=== PATIENT | female | born 1955 | race Caucasian/White ===

== ENCOUNTER → 2023-06-10 09:29 | Outpatient (BNVA) | payer OTHER, SELFPAY | PROVIDERS: PCP Internal Medicine Cardiovascular Disease; Visit Provider Physician Assistant Surgical ==

== ENCOUNTER → 2023-06-12 09:53 | Outpatient (BNVA) | payer OTHER, SELFPAY | PROVIDERS: PCP Internal Medicine Cardiovascular Disease; Visit Provider Physician Assistant ==

== ENCOUNTER 2023-07-10 13:48 | Outpatient (AMB) | payer OTHER, SELFPAY ==
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
[2023-07-10 14:20] VITALS: BP 143/94; PULSE 85; TEMP 36.4; O2SAT 100; BMI 49.7
== END 2023-07-10 15:09 | disposition home or self-care (01) ==
PROVIDERS: PCP Internal Medicine Cardiovascular Disease; Visit Provider Physician Assistant
DX: E66.01 Morbid (severe) obesity due to excess calories (principal); Z68.42 Body mass index [BMI] 45.0-49.9, adult; Z98.84 Bariatric surgery status; G47.30 Sleep apnea, unspecified
CPT/HCPCS: 99205

== ENCOUNTER → 2023-07-10 13:48 | Outpatient (BNVA) | payer OTHER, SELFPAY | PROVIDERS: PCP Internal Medicine Cardiovascular Disease; Visit Provider Physician Assistant ==

== ENCOUNTER 2023-07-14 09:18 | Outpatient (REF) | payer OTHER, SELFPAY ==
[2023-07-20 12:19] LABS: H Pylori Breath Test Negative (Negative)
== END 2023-07-14 09:19 | disposition home or self-care (01) ==
LOC: HO.LNP 09:18
PROVIDERS: PCP Internal Medicine Cardiovascular Disease; Visit Provider Physician Assistant
DX: Z01.818 Encounter for other preprocedural examination (principal); E66.01 Morbid (severe) obesity due to excess calories; Z98.84 Bariatric surgery status
CPT/HCPCS: 83013; 99211

== ENCOUNTER → 2023-07-30 09:15 | Outpatient (BNVA) | payer OTHER, SELFPAY | PROVIDERS: PCP Internal Medicine Cardiovascular Disease; Visit Provider Dietitian, Registered | DX: E66.9 Obesity, unspecified (principal); Z71.3 Dietary counseling and surveillance | CPT/HCPCS: 97802 ==

== ENCOUNTER 2023-08-12 09:22 | Outpatient (AMB) | payer OTHER, SELFPAY ==
--- NOTE | 2023-08-12 09:07 | MHC.WMTHER ---
Intake Intake Visit Reasons: VIDEO BH Intake Allergies No Known Allergies Allergy (Verified 07/10/23 14:13) [facility] Medical History (Updated 08/12/23 @ 09:31 by Krysta Haddad) Retinal detachment Surgical History (Updated 07/10/23 @ 15:02 by Shanel Lobo PA-C) Hx of dilation and curettage Hx of colonoscopy Hx of endoscopy History of delivery Hx of total knee replacement Hx of carpal tunnel repair Family History (Updated 07/10/23 @ 14:15 by Judy Shen [facility]) Mother CHF (congestive heart failure) A-fib Father No problems noted. Daughter No problems noted. Daughter No problems noted. Social History (Updated 07/10/23 @ 14:14 by Judy Shen CMA) Alcohol intake: current Alcohol intake frequency: holidays/special occasions only Patient Tobacco Use Status: Never used Tobacco Behavioral Health Assessment Weight Management Therapy Therapy Notes Details Pt reported that she is in therapy with Cristina Viera [facility]. She has seen her for three visits to help with anxiety. She also takes medication from anxiety/depression. She has no history of problems with drugs or alcohol. Patient is looking to have weight loss surgery revision. She had gastric bypass in 2006 and lost 85lbs. She hit a plateau but did not realize that is what resulted in her giving up. Presenting Concerns Referral Source provider Reason for referral weight loss surgery evaluation Precipitating Event obesity Living Situation Current Living Situation Own At risk of losing current housing? No Satisfied with current living situation? Yes Comments Pt lives with her . Food/Weight/Diet Expectations of change weight loss and maintenance History/Relationship with food Pt stated that she would do well all day long and then graze enough for 4 people at night. She stated that she never knew if she was actually hungry or not, she would eat and did not even know about emotional eating. Breads, pasta, donuts, other sweets have been her biggest downfall and struggle. History/Relationship with weight Pt stated that she struggled with her weight all of her life. History/Relationship with dieting GBP in 2006 Dr Lemus. She reported loosing 85lbs and then her weight stalled. She stated that she did not know it was a normal plateau and gave up. She described never learning really what she struggled with. Social History Family history and relationship Pt has been for 45 years to her and has to adult daughters, 6 grandchildren, and one great grandchild on the way. She reported having a sister who was/is close to 600lbs and most of her father's family was sig. overweight. her parents when she was 4 years old, her paternal grandmother would pick her up on the weekends and food was a big reward and life was surrounded by food options and choices from her. 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 Social support , daughters Cultural/Ethnic information Legal Involvement and History Current or historical involvement with the legal system? none Education Highest grade completed high school Preferred learning style Auditory, Verbal, Written, Learn by doing and Visual Currently enrolled in educational program? No Interested in further educational program? 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 Employment Employment Status Retired Wants help to find employment? No Meaningful activities Spending time with her family. tang, gardening Financial Situation Describe current financial situation Comfortable Financial assistance? None Service Service? No Mental Health and Addiction Treatment Current/Past substance abuse? No Medical and Physical Health Summary Physical exam in the last year? Yes Pain Screening Current pain? No Medications Is the patient compliant with medications? Yes Does the patient have Strauss Guardian in place? Not applicable Does the patient use complimentary health approaches? No Questionnaires PHQ-9 Over the last 2 weeks, how often have you been bothered by any of the following problems? 1. Little interest or pleasure in doing things: several days 2. Feeling down, depressed, or hopeless: several days 3. Trouble falling or staying asleep, or sleeping too much: more than half the days 4. Feeling tired or having little energy: more than half the days 5. Poor appetite or overeating: nearly every day 6. Feeling bad about yourself - or that you are a failure or have let yourself or your family down: several days 7. Trouble concentrating on things, such as reading the newspaper or watching television: not at all 8. Moving or speaking so slowly that other people could have noticed. Or the opposite - being so fidgety or restless that you have been moving around a lot more than usual: not at all 9. Thoughts that you would be better off or of hurting yourself in some way: not at all Total score: 10 Source: Developed by Drs. Jorge Roberson, Sharron Thompson, Flip Fung and colleagues, with an educational stone from [employer]. Binge Eating Scale Group 1 A. I don't feel self-conscious about my wt. or body size when I'm with others. B. I feel concerned about how I look to others, but it normally does not make me fell disappointed with myself C. I do get self-conscious about my appearance and wt. which makes me feel disappointed in myself. D. I feel very self-conscious about my wt. and frequently I feel intense shame and disgust for myself. I try to avoid social contacts because of my self-consciousness. Response Group 1: C Group 2 A. I don't have any difficulty eating slowly in the proper manner. B. Although I seem to gobble down foods, I don't end up feeling stuffed because of eating to much. C. At times, I tend to eat quickly and then, I feel uncomfortably full afterwards. D. I have the habit of bolting down my food, without really chewing it. When this happens I usually feel uncomfortably stuffed because I've eaten to much. Response Group 2: C Group 3 A. I feel capable to control my eating urges when I want to. B. I feel like I have failed to control my eating more than the average person. C. I feel utterly helpless when it comes to feeling in control of my eating urges. D. Because I feel so helpless about controlling my eating I have become very desperate about trying to get control. Response Group 3: B Group 4 A. I don't have the habit of eating when I'm bored. B. I sometimes eat when I'm bored, but often I'm able to get busy and get my mind off food. C. I have a regular habit of eating when I'm bored, but occasionally, I can use some other activity to get my mind off eating. D. I have a strong habit of eating when I'm bored. Nothing seems to help me breath the habit. Response Group 4: D Group 5 A. I'm usually physically hungry when I eat something. B. Occasionally, I eat something on impulse even though I really am not hungry. C. I have the regular habit of eating foods, that I might not really enjoy, to satisfy a hungry feeling even though physically, I don't need the food. D. Although I'm not physically hungry, I get a hungry feeling in my mouth that only seems to be satisfied when I eat a food, like sandwich, that fills my mouth. Sometimes, when I eat the food to satisfy my mouth hunger, I then spit the food out so I won't gain weight. Response Group 5: B Group 6 A. I don't feel any guilt or self-hate after I overeat. B. After I overeat, occasionally I feel guilt or self-hate. C. Almost all the time I experience strong guilt or self-hate after I overeat. Response Group 6: B Group 7 A. I don't lose total control of my eating when dieting even after periods when I overeat. B. Sometimes when I eat a forbidden food on a diet, I feel like I blew it and eat even more. C. Frequently, I have the habit of saying to myself, I've blown it now, why not go all the way, when I overeat on a diet. When that happens I eat more. D. I have a regular habit of starting a strict diets for myself but I break the diets by going on an eating binge. My life seems to be either a feast or famine. Response Group 7: C Group 8 A. I rarely eat so much food that I feel uncomfortably stuffed afterwards. B. Usually about once a month, I each such a quantity of food, I end up feeling very stuffed. C. I have regular periods during the month when I eat large amounts of food, either at mealtime or at snacks. D. I eat so much food that I regularly feel quite uncomfortable after eating and sometimes a bit nauseous. Response Group 8: C Group 9 A. My level of calorie intake does not go up very high or go down very low on a regular basis. B. Sometimes after I overeat, I will try to reduce my caloric intake to almost nothing to compensate for the excess calories I've eaten. C. I have a regular habit of overeating during the night. It seems that my routine is not to be hungry in the morning but overeat in the evening. D. In my adult years, I have had week-long periods where I practically starve myself. This follows periods when I overeat. It seems I live a life of either feast or famine. Response Group 9: C Group 10 A. I usually am able to stop eating when I want to. I know when enough is enough. B. Every so often, I experience a compulsion to eat which I can't seem to control. C. Frequently, I experience strong urges to eat which I seem unable to control, but at other times I can control my eating urges. D. I feel incapable of controlling urges to eat. I have a fear of not being able to stop eating voluntarily. Response Group 10: A Group 11 A. I don't have any problem stopping eating when I feel full. B. I usually can stop eating when I feel full but occasionally overeat leaving me feeling uncomfortably stuffed. C. I have a problem stopping eating once I start and usually I feel uncomfortably stuffed after I eat a meal. D. Because I have a problem not being able to stop eating when I want, I sometimes have to induce vomiting to relieve my stuffed feeling. Response Group 11: B Group 12 A. I seem to eat just as much when I'm with others, Family social gatherings as when I'm by myself. B. Sometimes, when I'm with other persons, I don't eat as much as I want to eat because I'm self-conscious about my eating. C. Frequently, I eat only a small amount of food when others are present, because I'm very embarrassed about my eating. D. I feel so ashamed about overeating that I pick times to overeat when I know no one will see me. I feel like a closet eater. Response Group 12: D Group 13 A. I eat three meals a day with only an occasional between meal snack. B. I eat 3 meals a day, but I also normally snack between meals. C. When I am snacking heavily, I get in the habit of skipping regular meals. D. There are regular periods when I seem to be continually eating, with no planned meals. Response Group 13: B Group 14 A. I don't think much about trying to control unwanted eating urges. B. At least some of the time, I feel my thoughts are pre-occupied with trying to control my eating urges. C. I feel that frequently I spend much time thinking about how much I ate or about trying not to eat anymore. D. It seems to me that most of my waking hours are pre-occupied by thoughts about eating or not eating. I feel like I'm constantly struggling not to eat. Response Group 14: C Group 15 A. I don't think about food a great deal. B. I have strong craving for food but they last only for brief periods of time. C. I have days when I can't seem to think about anything else but food. D. Most of my days seem to be pre-occupied with thoughts about food. I feel like I live to eat. Response Group 15: C Group 16 A. I usually know whether or not I'm physically hungry. I take the right portion of food to satisfy me. B. Occasionally, I feel uncertain about knowing whether or not I'm physically hungry. A these times it's hard to know how much food I should take to satisfy me. C. Even though I might know how many calories I should eat, I don't have any idea what is a normal amount of food for me. Response Group 16: B Binge Eating Score: 26 Score less than 17 Minimal Risk Score between 18-26 Moderate Risk Score between 27-46 High Risk Assessment & Plan Assessment & Plan (1) Generalized anxiety disorder: Code(s): F41.1 - Generalized anxiety disorder (2) Morbid obesity: Code(s): E66.01 - Morbid (severe) obesity due to excess calories Plan Patient is a 67 year old female with previous gastric bypass surgery and some disordered eating. She reported that food and overindulging was a huge part of her life for many years. There may be some binge eating behaviors as well although not recently. She is working with her therapist on managing her anxiety and also on medication. Patient would like to be seen again. Telehealth Telehealth Location of provider rendering services: other Location of patient: address on file Patient Identification confirmed using: Name, : Yes Telehealth method: voice only Patient verbally consented to treatment: Yes Patient verbally consented to billing insurance company: Yes Patient informed of any privacy concerns related to visit: Yes Minutes spent on Phone/Video with Pt.: 45 Coding Level of Care Code Tele Psy Diag Eval (55067) Diagnoses Generalized anxiety disorder F41.1 Morbid obesity E66.01 Time Spent (min) 45
== END 2023-08-28 14:10 | disposition home or self-care (01) ==
LOC: HO.HBST 09:22
PROVIDERS: PCP Internal Medicine Cardiovascular Disease; Visit Provider Counselor Mental Health
DX: F41.1 Generalized anxiety disorder (principal); E66.01 Morbid (severe) obesity due to excess calories
CPT/HCPCS: 90791

== ENCOUNTER → 2023-08-12 09:22 | Outpatient (BNVA) | payer OTHER, SELFPAY | PROVIDERS: PCP Internal Medicine Cardiovascular Disease; Visit Provider Counselor Mental Health ==

== ENCOUNTER 2023-08-18 10:06 | Outpatient (REF) | payer OTHER, SELFPAY ==
--- NOTE | ~2023-08-18 | XR_ITS ---
EXAMINATION: XR CHEST CLINICAL INFORMATION: Morbid obesity. COMPARISON: None available. TECHNIQUE: 2 views of the chest were obtained. FINDINGS: Normal appearance of the cardiomediastinal silhouette. No focal airspace opacities, pleural effusion or pneumothorax. No acute osseous findings. Visualized upper abdomen within normal limits. XR/XR chest 2V IMPRESSION: No acute cardiopulmonary findings.
--- NOTE | 2023-08-18 10:12 | ECG_ITS ---
Test Reason : E66.01 Blood Pressure : / mmHG Vent. Rate : 063 BPM Atrial Rate : 063 BPM P-R Int : 146 ms QRS Dur : 088 ms QT Int : 390 ms P-R-T Axes : 011 014 024 degrees QTc Int : 399 ms Normal sinus rhythm Normal ECG No previous ECGs available Referred By: Shanel Lobo Electronically Signed By:Henrik Gonzalez
[2023-08-18 10:33] LABS: MANUAL DIFF FLAG NO
[2023-08-18 10:54] LABS: Basophils Percent Auto 0.8 % (0-2); Eosinophils Absolute Auto 0.1 X10*3/uL (0.0-0.4); Eosinophils Percent Auto 3.3 % (0-4); Hematocrit 45.8 % (37.0-47.0); Hemoglobin 14.7 g/dl (12.0-16.0); Imm Gran Abs Auto 0.01 X10*3/uL (0.00-0.03); Imm Gran Pct Auto 0.3 % (0.0-0.4); Lymphocytes Absolute Auto 1.1 X10*3/uL (1.2-4.9); Lymphocytes Percent Auto 27.1 % (20-40); Mean Corpuscular HGB Conc 32.1 g/dl (31.0-35.0); Mean Corpuscular Hemoglobin 29.4 pg (27.0-33.0); Mean Corpuscular Volume 91.6 fL (80.0-98.0); Mean Platelet Volume 9.8 fL (9.4-12.3); Monocytes Absolute Auto 0.4 X10*3/uL (0.1-1.2); Monocytes Percent Auto 10.5 % (2-11); Neutrophils Absolute Auto 2.3 x10*3/uL (2.0-8.3); Platelet Count 256 X10*3/uL (160-400); Red Cell Distribution Width 13.8 % (11.0-16.0); White Blood Count 3.9 X10*3/uL (4.8-10.8)
[2023-08-18 11:06] LABS: Estimated Average Glucose 111 mg/dL; Hemoglobin A1c % 5.5 % (<6.0)
[2023-08-18 11:34] LABS: Alanine Aminotransferase 14 U/L (0-31); Albumin Level 4.1 g/dL (3.5-5.0); Alkaline Phosphatase 81 U/L (39-117); Anion Gap 12 (12-20); Aspartate Amino Transferase 17 U/L (5-31); Bilirubin Total 0.5 mg/dL (0.0-1.0); Blood Urea Nitrogen 18 mg/dL (9-16); C Reactive Protein 0.64 mg/dL (< or = 0.50); Calcium 10.1 mg/dL (8.4-10.2); Carbon Dioxide 28 mmol/L (22-29); Chloride 105 mmol/L (96-108); Cholesterol 175 mg/dL (<200); Estimated Glomerular Filt Rate > 60; Glucose Random 104 mg/dL (60-115); HDL Cholesterol 51 mg/dL (>40); Iron 73 mcg/dL (30-160); LDL Cholesterol Calculated 107 mg/dL (<100); Percent Iron Saturation 25 % (15-50); Potassium 4.5 mmol/L (3.3-5.1); Sodium 140 mmol/L (135-145); Total Iron Binding Capacity 291 mcg/dL (228-428); Total Protein 7.3 g/dL (6.5-8.0); Triglycerides 87 mg/dL (<150); Unsaturated Iron Binding 218 ug/dL
[2023-08-18 11:53] LABS: Ferritin 62 ng/mL (10-250); Insulin 7 uU/mL (2-29); TSH reflex Free T4 1.06 uIU/mL (0.32-4.0); Vitamin D 25-OH Total 48.6 ng/mL (>30)
[2023-08-18 11:57] LABS: Folate 4.9 ng/mL (> or = 4.0); Vitamin B12 463 pg/mL (200-900)
[2023-08-20 12:29] LABS: Zinc 74 mcg/dL (60-130)
[2023-08-21 13:58] LABS: Vitamin A 52 mcg/dL (38-98)
[2023-08-22 11:09] LABS: Vitamin B1 6 nmol/L (8-30)
== END 2023-08-18 10:07 | disposition home or self-care (01) ==
LOC: HO.XRAY 10:06
PROVIDERS: PCP Internal Medicine Cardiovascular Disease; Visit Provider Physician Assistant
DX: Z01.818 Encounter for other preprocedural examination (principal); E66.01 Morbid (severe) obesity due to excess calories; I10 Essential (primary) hypertension; G47.30 Sleep apnea, unspecified; Z98.84 Bariatric surgery status
CPT/HCPCS: 36415; 71046; 80053; 80061; 82306; 82607; 82728; 82746; 83036; 83525; 83540; 84425; 84443; 84590; 84630; 85025; 86140; 93005

== ENCOUNTER → 2023-08-18 10:12 | Outpatient (BNV) | payer OTHER, SELFPAY | PROVIDERS: PCP Internal Medicine Cardiovascular Disease; Visit Provider Internal Medicine Cardiovascular Disease | DX: Z01.818 Encounter for other preprocedural examination (principal); E66.01 Morbid (severe) obesity due to excess calories | CPT/HCPCS: 93010 ==

== ENCOUNTER 2023-08-21 09:00 | Outpatient (AMB) | payer OTHER, SELFPAY ==
--- NOTE | 2023-08-21 08:55 | MHC.OFFVISWM ---
Intake VS Expanded 08/21/23 09:13 Height 5 ft 5 in Weight 283 lb 2 oz BMI 47.1 Intake Visit Reasons: video F/U SWL Allergies No Known Allergies Allergy (Verified 07/10/23 14:13) HPI HPI Comments History of Present Illness Details This is the patients second appt for revision of previous GBP. No OR report recieved yet - Juwan is trying again today. Starting weight was 298.9 lbs on 07/10/23. Still recovering from the flu over the last month. TBWL is 298.9 lbs or 5.3 % TBWL. Meal plan: 8:30 - coffee with milk now - stopped half and half 12 pm - Premier powder mixed with 8 oz UAM 3-4 pm -meal of 8 forks of each; salmon or other fish or chicken with vegetables in air fryer. using our recipe book. fruit 8pm - another shake 11 pm - bar in 10 pieces over 45 minutes Exercise plan: 200 dorita alternates with 300 calories on bike daily. Now finds it easier Pre op work up completed as follows: SWL classes - 04/15 appts - follow up on 08/26 RD appts -cleared H pylori - negative Labs- all normal so far, vitamin level pending CXR - not read yet ECG - normal ULS and UGI - 09/04 and 09/29 [facility] Medical History (Updated 08/12/23 @ 09:31 by Krsyta Haddad) Retinal detachment Surgical History (Updated 07/10/23 @ 15:02 by Shanel Lobo PA-C) Hx of dilation and curettage Hx of colonoscopy Hx of endoscopy History of delivery Hx of total knee replacement Hx of carpal tunnel repair Family History (Updated 07/10/23 @ 14:15 by Judy Shen CMA) Mother CHF (congestive heart failure) A-fib Father No problems noted. Daughter No problems noted. Daughter No problems noted. Social History (Updated 07/10/23 @ 14:14 by Judy Shen CMA) Alcohol intake: current Alcohol intake frequency: holidays/special occasions only Patient Tobacco Use Status: Never used Tobacco Assessment & Plan Assessment & Plan (1) Morbid obesity: Code(s): E66.01 - Morbid (severe) obesity due to excess calories Plan: Great start with 15.7 lbs or 5.3% TBWL. No changes made to meal plan. Exercise - alternate 250 dorita and 350 dorita on bike 5 d/ week. 2d ST TBP - [address] due to her age for increased bone health and flexibility. All upcoming appts reviewed with patient. Will send me weekly weights Next appt with me in 3 weeks. Patient is still morbidly obese and is not considered stable at this time. I spent 26 minutes in total speaking with the patient via video conference counseling , reviewing records and charting in patients chart. . (2) S/P gastric bypass: Comment[place] [facility] Code(s): Z98.84 - Bariatric surgery status Plan: Obtaining OR report, patient has offered to pick it up herself as needed. (3) HTN (hypertension) with goal to be determined: Code(s): I10 - Essential (primary) hypertension (4) Sleep apnea treated with continuous positive airway pressure (CPAP): Code(s): G47.30 - Sleep apnea, unspecified Plan see above Telehealth Telehealth Location of provider rendering services: practice address Location of patient: address on file Patient Identification confirmed using: Name, : Yes Telehealth method: video Patient verbally consented to treatment: Yes Patient verbally consented to billing insurance company: Yes Patient informed of any privacy concerns related to visit: Yes Coding Level of Care Code Tele Est Pt Level 4 (08972) Diagnoses Morbid obesity E66.01 S/P gastric bypass Z98.84 HTN (hypertension) with goal to be determined I10 Sleep apnea treated with continuous positive airway pressure (CPAP) G47.30
[2023-08-21 09:13] VITALS: BMI 47.1
== END 2023-08-21 09:24 | disposition home or self-care (01) ==
LOC: HO.HBS 09:21
PROVIDERS: PCP Internal Medicine Cardiovascular Disease; Visit Provider Physician Assistant
DX: E66.01 Morbid (severe) obesity due to excess calories (principal); Z68.42 Body mass index [BMI] 45.0-49.9, adult; Z98.84 Bariatric surgery status; I10 Essential (primary) hypertension; G47.30 Sleep apnea, unspecified
CPT/HCPCS: 99214

== ENCOUNTER → 2023-08-21 09:00 | Outpatient (BNVA) | payer OTHER, SELFPAY | PROVIDERS: PCP Internal Medicine Cardiovascular Disease; Visit Provider Physician Assistant ==

== ENCOUNTER 2023-09-10 14:05 | Outpatient (AMB) | payer OTHER, SELFPAY ==
--- NOTE | 2023-09-10 14:31 | MHC.WMTHER ---
Intake Intake Visit Reasons: VIDEO BH F/U Allergies No Known Allergies Allergy (Verified 07/10/23 14:13) [facility] Medical History (Updated 08/12/23 @ 09:31 by Krysta Haddad) Retinal detachment Surgical History (Updated 07/10/23 @ 15:02 by Shanel Lobo PA-C) Hx of dilation and curettage Hx of colonoscopy Hx of endoscopy History of delivery Hx of total knee replacement Hx of carpal tunnel repair Family History (Updated 07/10/23 @ 14:15 by Judy Shen [facility]) Mother CHF (congestive heart failure) A-fib Father No problems noted. Daughter No problems noted. Daughter No problems noted. Social History (Updated 07/10/23 @ 14:14 by Judy Shen CMA) Alcohol intake: current Alcohol intake frequency: holidays/special occasions only Patient Tobacco Use Status: Never used Tobacco Behavioral Health Assessment Weight Management Therapy Therapy Notes Details Patient reported doing well the past 4 months, she has been working on herself in therapy and on her health. Recent hurdles have been issues with her eye (has had 4 detached retinas and surgeries) which she admitted she had not been exercising. Pt reported that she is in therapy with Cristina Viera [facility]. She has seen her for three visits to help with anxiety. She also takes medication from anxiety/depression. She has no history of problems with drugs or alcohol. Patient is looking to have weight loss surgery revision. She had gastric bypass in 2006 and lost 85lbs. She hit a plateau but did not realize that is what resulted in her giving up. Presenting Concerns Referral Source provider Reason for referral weight loss surgery evaluation Precipitating Event obesity Living Situation Current Living Situation Own At risk of losing current housing? No Satisfied with current living situation? Yes Comments Pt lives with her . Food/Weight/Diet Expectations of change weight loss and maintenance History/Relationship with food Pt stated that she would do well all day long and then graze enough for 4 people at night. She stated that she never knew if she was actually hungry or not, she would eat and did not even know about emotional eating. Breads, pasta, donuts, other sweets have been her biggest downfall and struggle. History/Relationship with weight Pt stated that she struggled with her weight all of her life. History/Relationship with dieting GBP in 2006 Dr Lemus. She reported loosing 85lbs and then her weight stalled. She stated that she did not know it was a normal plateau and gave up. She described never learning really what she struggled with. Social History Family history and relationship Pt has been for 45 years to her and has to adult daughters, 6 grandchildren, and one great grandchild on the way. She reported having a sister who was/is close to 600lbs and most of her father's family was sig. overweight. her parents when she was 4 years old, her paternal grandmother would pick her up on the weekends and food was a big reward and life was surrounded by food options and choices from her. 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 Social support , daughters Cultural/Ethnic information Legal Involvement and History Current or historical involvement with the legal system? none Education Highest grade completed high school Preferred learning style Auditory, Verbal, Written, Learn by doing and Visual Currently enrolled in educational program? No Interested in further educational program? 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 She also worked for 25 years for a [employer] company. Employment Employment Status Retired Wants help to find employment? No Meaningful activities Spending time with her family. tang, gardening Financial Situation Describe current financial situation Comfortable Financial assistance? None Service Service? No Mental Health and Addiction Treatment Current/Past substance abuse? No Medical and Physical Health Summary Physical exam in the last year? Yes Pain Screening Current pain? No Medications Is the patient compliant with medications? Yes Does the patient have Strauss Guardian in place? Not applicable Does the patient use complimentary health approaches? No Questionnaires PHQ-9 Over the last 2 weeks, how often have you been bothered by any of the following problems? 1. Little interest or pleasure in doing things: not at all 2. Feeling down, depressed, or hopeless: not at all 3. Trouble falling or staying asleep, or sleeping too much: several days 4. Feeling tired or having little energy: not at all 5. Poor appetite or overeating: not at all 6. Feeling bad about yourself - or that you are a failure or have let yourself or your family down: not at all 7. Trouble concentrating on things, such as reading the newspaper or watching television: not at all 8. Moving or speaking so slowly that other people could have noticed. Or the opposite - being so fidgety or restless that you have been moving around a lot more than usual: not at all 9. Thoughts that you would be better off or of hurting yourself in some way: not at all Total score: 1 Source: Developed by Drs. Jorge Roberson, Sharron Thompson, Flip Fung and colleagues, with an educational stone from [employer]. Assessment & Plan Assessment & Plan (1) Generalized anxiety disorder: Code(s): F41.1 - Generalized anxiety disorder (2) Morbid obesity: Code(s): E66.01 - Morbid (severe) obesity due to excess calories Plan Patient is a 67 year old female with previous gastric bypass surgery and some disordered eating. She reported that food and overindulging was a huge part of her life for many years. There may be some binge eating behaviors as well although not recently. She is working with her therapist on managing her anxiety and also on medication. . Radha reported significantly improvement in herself in the past 4 months when she started therapy and working on herself. She continues to feel better and has been loosing weight. Discussed anxiety at night when she is alone and experiencing racing thoughts and worries. Patient would like to be seen again Telehealth Telehealth Location of provider rendering services: practice address Location of patient: address on file Patient Identification confirmed using: Name, : Yes Telehealth method: video Patient verbally consented to treatment: Yes Patient verbally consented to billing insurance company: Yes Patient informed of any privacy concerns related to visit: Yes Minutes spent on Phone/Video with Pt.: 45 Coding Level of Care Code Tele Psytx 45 mins (73263) Diagnoses Generalized anxiety disorder F41.1 Morbid obesity E66.01 Time Spent (min) 45
== END 2023-09-10 14:31 | disposition home or self-care (01) ==
LOC: HO.HBST 14:05
PROVIDERS: PCP Internal Medicine Cardiovascular Disease; Visit Provider Counselor Mental Health
DX: F41.1 Generalized anxiety disorder (principal); E66.01 Morbid (severe) obesity due to excess calories
CPT/HCPCS: 90834

== ENCOUNTER → 2023-09-10 14:05 | Outpatient (BNVA) | payer OTHER, SELFPAY | PROVIDERS: PCP Internal Medicine Cardiovascular Disease; Visit Provider Counselor Mental Health ==

== ENCOUNTER 2023-09-25 11:00 | Outpatient (AMB) | payer OTHER, SELFPAY ==
--- NOTE | 2023-09-25 11:11 | A.OFFVIS_ITS ---
Intake VS Expanded 09/25/23 11:15 Height 5 ft 5 in Weight 280 lb 6 oz BMI 46.7 Intake Visit Reasons: video F/U SWL Allergies No Known Allergies Allergy (Verified 07/10/23 14:13) HPI HPI Comments History of Present Illness Details [facility] follow up for revision of previous GBP. No OR report received yet - patient will retrieve from [facility] [place] herself. Starting weight was 298.9 lbs on 07/10/23. TBWL is 18.3 lbs or 6.1 % TBWL. Meal plan: Went off meal plan when had eye injections. 8:30 - coffee with milk now - 12 pm - Premier powder mixed with 8 oz U AM 3-4 pm -meal of 8 forks of each; salmon or other fish or chicken with vegetables in air fryer. using our recipe book. fruit 8pm - another shake 11 pm - bar in 10 pieces over 45 minutes Exercise plan: bike daily 25- alternates with 350 calories. TBP videos 2 d/wk - very challenging Pre op work up completed as follows: SWL classes - 04/15 appts - follow up on 10/01 RD appts -cleared H pylori - negative Labs- thiamine def, vit d def CXR - normal ECG - normal ULS and UGI - rescheduled to 09/30 (due to eye infection)and 09/29 [facility] Medical History (Updated 08/12/23 @ 09:31 by Krysta Haddad) Retinal detachment Surgical History (Updated 07/10/23 @ 15:02 by Shanel Lobo PA-C) Hx of dilation and curettage Hx of colonoscopy Hx of endoscopy History of delivery Hx of total knee replacement Hx of carpal tunnel repair Family History (Updated 07/10/23 @ 14:15 by Judy Shen CMA) Mother CHF (congestive heart failure) A-fib Father No problems noted. Daughter No problems noted. Daughter No problems noted. Social History (Updated 07/10/23 @ 14:14 by Judy Shen CMA) Alcohol intake: current Alcohol intake frequency: holidays/special occasions only Patient Tobacco Use Status: Never used Tobacco Physical Exam Vital Signs: BMI result Body Mass Index 46.7 Assessment & Plan Assessment & Plan (1) Morbid obesity: Code(s): E66.01 - Morbid (severe) obesity due to excess calories Plan: Pt went off track with her meal and exercise plans while having eye problems an d is now back on track. She will continue meal and exericse plans as above. UGI and ULs next week - will send results to Dr Dominguez for review when ready. Will send me weekly weights. Has follow up with Krysta later this month. Next appt with me in 3 weeks. Patient is still morbidly obese and is not considered stable at this time. I spent 30 minutes in total speaking with the patient via video conference counseling , reviewing records and charting in patients chart. . (2) S/P gastric bypass: Comment: 2006 [facility] Code(s): Z98.84 - Bariatric surgery status Plan: as above, will need EGD pre op Medications: Refilled thiamine HCl (vitamin B1) 50 mg PO DAILY 30 tabs 4RF Telehealth Telehealth Location of provider rendering services: practice address Location of patient: address on file Patient Identification confirmed using: Name, : Yes Telehealth method: video Patient verbally consented to treatment: Yes Patient verbally consented to billing insurance company: Yes Patient informed of any privacy concerns related to visit: Yes Coding Level of Care Code Tele Est Pt Level 4 (89793) Diagnoses Morbid obesity E66.01 S/P gastric bypass Z98.84
[2023-09-25 11:15] VITALS: BMI 46.7
== END 2023-09-25 11:29 | disposition home or self-care (01) ==
LOC: HO.HBS 11:23
PROVIDERS: PCP Internal Medicine Cardiovascular Disease; Visit Provider Physician Assistant
DX: E66.01 Morbid (severe) obesity due to excess calories (principal); Z68.42 Body mass index [BMI] 45.0-49.9, adult; Z98.84 Bariatric surgery status
CPT/HCPCS: 99214

== ENCOUNTER → 2023-09-25 11:00 | Outpatient (BNVA) | payer OTHER, SELFPAY | PROVIDERS: PCP Internal Medicine Cardiovascular Disease; Visit Provider Physician Assistant | DX: E66.01 Morbid (severe) obesity due to excess calories (principal); Z98.84 Bariatric surgery status; I10 Essential (primary) hypertension; G47.30 Sleep apnea, unspecified ==

== ENCOUNTER 2023-09-29 08:34 | Outpatient (REF) | payer OTHER, SELFPAY ==
--- NOTE | ~2023-09-29 | FL_ITS ---
EXAMINATION: XR FLUOROSCOPY UPPER GI WITH AIR CLINICAL INFORMATION: History of gastric bypass 15 years ago. Preoperative evaluation prior to revision. COMPARISON: None TECHNIQUE: Fluoroscopic air contrast upper GI examination was performed utilizing standard techniques with thin and thick barium and effervescent granules. Numerous spot images were obtained. FINDINGS: Dual and single contrast images of the esophagus demonstrate normal caliber, contour, and mucosal pattern. No evidence of stricture, mass, or ulcerations identified. Primary esophageal peristalsis appeared normal. Significantly disorganized tertiary contractions were noted in the mid and distal esophagus. Small to moderate sized paraesophageal hiatus hernia identified. No significant gastroesophageal reflux was seen during the course of the examination and on reflux views. Dual contrast and single contrast images of the stomach demonstrated postsurgical changes consistent with prior history of a Ilene-en-Y gastric bypass. Mucosal pattern is without evidence of mass, ulceration, or other abnormality. The gastrojejunostomy is widely patent. Contrast freely passed from the gastric pouch and into the Ilene limb. The imaged jejunum has a normal fold pattern and caliber. FLUOROSCOPY TIME: 3 minutes 35 seconds Number of Spot Images: 10 Number of Cine: 8 DOSE AREA PRODUCT: 2813 uGy-m2 (microgray-meter squared) FL/FL upper GI w air IMPRESSION: 1. Moderately disorganized esophageal motility, especially in the distal one half of the esophagus. 2. Postsurgical changes consistent with prior history of Ilene-en-Y gastric bypass. No gross proximal complication. 3. Small to moderate sized paraesophageal hiatus hernia. This procedure was performed by Mg Kapadia PA-C, and supervised by Dr. Almeida
== END 2023-09-29 08:35 | disposition home or self-care (01) ==
LOC: HO.XRAY 08:34
PROVIDERS: PCP Internal Medicine Cardiovascular Disease; Visit Provider Physician Assistant
DX: Z01.818 Encounter for other preprocedural examination (principal); E66.01 Morbid (severe) obesity due to excess calories; I10 Essential (primary) hypertension; Z98.84 Bariatric surgery status
CPT/HCPCS: 74246

== ENCOUNTER → 2023-09-29 08:36 | Outpatient (BNV) | payer OTHER, SELFPAY | PROVIDERS: PCP Internal Medicine Cardiovascular Disease; Visit Provider Radiology Diagnostic Radiology | DX: Z01.818 Encounter for other preprocedural examination (principal) | CPT/HCPCS: 74246 ==

== ENCOUNTER 2023-09-30 10:22 | Outpatient (REF) | payer OTHER, SELFPAY ==
--- NOTE | ~2023-09-30 | US_ITS ---
EXAMINATION: US COMPLETE ABDOMEN WITH LIVER ELASTOGRAPHY CLINICAL INFORMATION: Morbid obesity. COMPARISON: None available. TECHNIQUE: Real-time imaging of the abdominal viscera. Noninvasive ultrasound liver fibrosis assessment is performed using Collin ElastPQ point quantification shear wave elastography (2D-SWE) with a C5-2 MHz transducer. Multiple elastography samples are obtained. FINDINGS: PANCREAS: Limited. The visualized pancreatic head and body are normal in appearance. The remainder of the pancreas is obscured from visualization by the overlying bowel gas. ABDOMINAL AORTA: The proximal and mid segments are normal in caliber. The distal segment is obscured by overlapping bowel gas. INFERIOR VENA CAVA: Visualized portions are normal. LIVER: The liver shows normal contour and increased size and echogenicity. In the right hepatic lobe centrally, a 1.4 x 0.6 x 1.2 cm hyperechoic, circumscribed mass is seen which may represent a focus of fat sparing or a benign hemangioma. No biliary duct dilatation. The right lobe measures 18.0 cm in length. The left lobe measures 10.6 cm in length. Portal flow is towards the liver (hepatopetal). Shear wave liver elastography median stiffness is 1.55 m/s (reference: normal median stiffness is 1.3 m/s or less). IQR/median stiffness to assess sampling precision is 0.25 (reference: good quality data set is IQR/median stiffness of 0.15 or less). GALLBLADDER: A 2.5 cm nonmobile calculus is seen. The gallbladder is physiologically distended without evidence of sludge, polyps, wall thickening or pericholecystic fluid. COMMON BILE DUCT: Normal in caliber measuring 0.5 cm in diameter. RIGHT KIDNEY: At the upper pole, a 4.2 cm benign, simple cyst is seen, for which no imaging follow-up is recommended. No hydronephrosis. No renal calculi or focal parenchymal lesions. The kidney measures 12.3 cm in maximum dimension. LEFT KIDNEY: Normal. No hydronephrosis. No renal calculi or focal parenchymal lesions. The kidney measures 12.0 cm in maximum dimension. SPLEEN: Normal. The spleen measures 10.7 cm in maximum dimension. FREE FLUID: None. US/US abdomen comp w elastography IMPRESSION: 1. There is generalized increase in hepatic echotexture, consistent with fatty infiltration or hepatocellular disease. Please correlate clinically. No intrahepatic biliary dilatation is seen. 2. A 1.4 cm hyperechoic focus is seen centrally within the right hepatic lobe, possibly a focus of fatty sparing or a benign hemangioma. This is of doubtful clinical significance. If clinically indicated (i.e., history of hepatocellular disease or known malignancy), this can be further evaluated with ultrasound or MRI. 3. Liver elastography: Although measurements appear to rule out compensated advanced chronic liver disease, there is statistical variability of the sampling which decreases accuracy. 4. Technically limited ultrasound examination of the pancreas and abdominal great vessels. REFERENCE: Society of Radiologists in Ultrasound Liver Stiffness Thresholds (2020): LIVER STIFFNESS THRESHOLDS: *Liver Stiffness equal or less than 1.3 m/s: High probability of being normal. *Liver Stiffness less than 1.7 m/s: In the absence of other known clinical signs, rules out compensated advanced chronic liver disease. *Liver Stiffness 1.7-2.1 m/s: Suggestive of compensated advanced chronic liver disease but need further test for confirmation. *Liver Stiffness over 2.1 m/s: Rules in compensated advanced chronic liver disease. *Liver Stiffness over 2.4 m/s: Suggestive of clinically significant portal hypertension. QUALITY OF DATA SET: *IQR/Median value equal or less than 0.15 implies a quality data set. *IQR/Median value over 0.15 implies a poor quality data set. SIGNIFICANT CHANGE FROM PRIOR EXAM: Significant change if liver stiffness measurement is 10% or greater from prior exam. OTHER CONSIDERATIONS: The stage of liver fibrosis may be overestimated in the setting of acute hepatitis, liver inflammation, elevated liver function tests, hepatic vascular congestion, obstructive cholestasis, non-fasting state, and infiltrative diseases such as amyloidosis and lymphoma. In some patients with NAFLD, the liver stiffness thresholds for compensated advanced chronic liver disease may be lower. In causes other than viral hepatitis and NAFLD, liver stiffness thresholds are not well established.
== END 2023-09-30 10:23 | disposition home or self-care (01) ==
LOC: HO.US 10:22
PROVIDERS: PCP Internal Medicine Cardiovascular Disease; Visit Provider Physician Assistant
DX: Z01.818 Encounter for other preprocedural examination (principal); E66.01 Morbid (severe) obesity due to excess calories; Z98.84 Bariatric surgery status
CPT/HCPCS: 76700; 76981

== ENCOUNTER 2023-11-19 14:00 | Outpatient (AMB) | payer OTHER, SELFPAY ==
--- NOTE | 2023-11-19 13:56 | A.OFFVIS_ITS ---
Intake VS Expanded 11/19/23 13:57 Height 5 ft 5 in Weight 269 lb 7 oz BMI 44.8 Intake Visit Reasons: (TV) F/U SWL Allergies No Known Allergies Allergy (Verified 07/10/23 14:13) HPI HPI Comments History of Present Illness Details SWL follow up for revision of previo us GBP. OR report from [facility] [place] [place] was scann ed into her chart Oct 01. 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 Meal plan: 8-9 am coffee with 1% mi lk, no sweetener 1 2pm - Pure protein powder with UAM 3-4 pm - dinner me al of 8 forks chic cliff or fish air fr ied with 8 forks air fried vegetabl e so or salad 8pm- second shake 1pm - protein bar in 1 0 pieces over 45 m inutes Exercise - 2d/week Beach [employer] videos - cannow finish 30 minute, very challenging f or her. 5d rides s tationary bike alt ernates 350 and 40 0 calories daily. Pre op work up c ompleted as follow s: SWL classes - BH appts - fol low up on 10/01, di d not have this ap pt. Will be resche duled now. RD appts -cleared H pylori - negative Labs- thiamine de f, vit d def CXR - normal ECG - norm al ULS - fatty juan j er, R 18.0, L 10.6 cm 1. There is g eneralized increas e in hepatic echot exture, consistent with fatty infilt ration or hepatoce llular disease. Pl ease correlate cli nically. No intrah epatic biliary dil atation is seen. 2. A 1.4 cm hype rechoic focus is s een centrally with in the right hepat ic lobe, possibly a focus of fatty s paring or a benign hemangioma. This is of doubtful cli nical significance . If clinically in dicated (i.e., hi story of hepatocel lular disease or k nown malignancy), this can be furthe r evaluated with u ltrasound or MRI. UGI - 1. Moderat enrique disorganized e sophageal motility , especially in th e distal one half of the esophagus. 2. Post surgical changes consistent with prior histor y of Ilene-en-Y gas tric bypass. No gr oss proximal compl ication. 3. Small to moderate sized paraesophageal hi atus hernia. EGD - will be schedule d now. [facility] Medical History (Updated 08/12/23 @ 09:31 by Krysta Haddad) Retinal detachment Surgical History (Updated 07/10/23 @ 15:02 by Shanel Lobo PA-C) Hx of dilation and curettage Hx of colonoscopy Hx of endoscopy History of delivery Hx of total knee replacement Hx of carpal tunnel repair Family History (Updated 07/10/23 @ 14:15 by Judy Shen CMA) Mother CHF (congestive heart failure) A-fib Father No problems noted. Daughter No problems noted. Daughter No problems noted. Social History (Updated 07/10/23 @ 14:14 by Judy Shen CMA) Alcohol intake: current Alcohol intake frequency: holidays/special occasions only Patient Tobacco Use Status: Never used Tobacco Assessment & Plan Assessment & Plan (1) S/P gastric bypass: Comment: 2006 [facility] [place] [place] Code(s): Z98.84 - Bariatric surgery status Plan: Great progress with 9.8% TBWL and preoperative work up completed (except for last appt with Krysta) for revision of GBP. OR report scanned in September Being scheduled for appt with Krysta, EGD and surgical consult with Dr Dominguez. No changes to meal or exercise plans today. She is feeling so much better and confident now. Patient is still morbidly obese and is not considered stable at this time. I spent 27 minutes in total speaking with the patient via video conference counseling , reviewing records and charting in patients chart. . (2) Morbid obesity: Code(s): E66.01 - Morbid (severe) obesity due to excess calories Plan see above Telehealth Telehealth Location of provider rendering services: practice address Location of patient: address on file Patient Identification confirmed using: Name, : Yes Telehealth method: video Patient verbally consented to treatment: Yes Patient verbally consented to billing insurance company: Yes Patient informed of any privacy concerns related to visit: Yes Coding Level of Care Code Tele Est Pt Level 4 (71924) Diagnoses S/P gastric bypass Z98.84 Morbid obesity E66.01
[2023-11-19 13:57] VITALS: BMI 44.8
== END 2023-11-19 14:26 | disposition home or self-care (01) ==
LOC: HO.HBS 14:24
PROVIDERS: PCP Internal Medicine Cardiovascular Disease; Visit Provider Physician Assistant
DX: E66.01 Morbid (severe) obesity due to excess calories (principal); Z68.41 Body mass index [BMI] 40.0-44.9, adult; Z98.84 Bariatric surgery status
CPT/HCPCS: 99213

== ENCOUNTER → 2023-11-19 14:00 | Outpatient (BNVA) | payer OTHER, SELFPAY | PROVIDERS: PCP Internal Medicine Cardiovascular Disease; Visit Provider Physician Assistant ==

== ENCOUNTER 2023-12-01 15:09 | Outpatient (AMB) | payer OTHER, SELFPAY ==
--- NOTE | 2023-12-01 15:10 | MHC.WMTHER ---
Intake Intake Visit Reasons: VIDEO F/U Allergies No Known Allergies Allergy (Verified 07/10/23 14:13) FOR[facility] Medical History (Updated 08/12/23 @ 09:31 by Krysta Haddad) Retinal detachment Surgical History (Updated 07/10/23 @ 15:02 by Shanel Lobo PA-C) Hx of dilation and curettage Hx of colonoscopy Hx of endoscopy History of delivery Hx of total knee replacement Hx of carpal tunnel repair Family History (Updated 07/10/23 @ 14:15 by Judy Shen [facility]) Mother CHF (congestive heart failure) A-fib Father No problems noted. Daughter No problems noted. Daughter No problems noted. Social History (Updated 07/10/23 @ 14:14 by Judy Shen [facility]) Alcohol intake: current Alcohol intake frequency: holidays/special occasions only Patient Tobacco Use Status: Never used Tobacco Behavioral Health Assessment Weight Management Therapy Therapy Notes Details Patient reported doing well the past 4 months, she has been working on herself in therapy and on her health. Recent hurdles have been issues with her eye (has had 4 detached retinas and surgeries) which she admitted she had not been exercising. She reported a changed mindset and found herself healed from many past childhood issues. She feels optimistic and just overall happy. Pt reported that she is in therapy with [facility]. She has seen her for three visits to help with anxiety. She also takes medication from anxiety/depression. She has no history of problems with drugs or alcohol. Patient is looking to have weight loss surgery revision. She had gastric bypass in 2006 and lost 85lbs. She hit a plateau but did not realize that is what resulted in her giving up. Presenting Concerns Referral Source provider Reason for referral weight loss surgery evaluation Precipitating Event obesity Living Situation Current Living Situation Own At risk of losing current housing? No Satisfied with current living situation? Yes Comments Pt lives with her . Food/Weight/Diet Expectations of change weight loss and maintenance History/Relationship with food Pt stated that she would do well all day long and then graze enough for 4 people at night. She stated that she never knew if she was actually hungry or not, she would eat and did not even know about emotional eating. Breads, pasta, donuts, other sweets have been her biggest downfall and struggle. History/Relationship with weight Pt stated that she struggled with her weight all of her life. History/Relationship with dieting GBP in 2006 Dr Lemus. She reported loosing 85lbs and then her weight stalled. She stated that she did not know it was a normal plateau and gave up. She described never learning really what she struggled with. Social History Family history and relationship Pt has been for 45 years to her and has to adult daughters, 6 grandchildren, and one great grandchild on the way. She reported having a sister who was/is close to 600lbs and most of her father's family was sig. overweight. her parents when she was 4 years old, her paternal grandmother would pick her up on the weekends and food was a big reward and life was surrounded by food options and choices from her. 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 Social support , daughters Cultural/Ethnic information Legal Involvement and History Current or historical involvement with the legal system? none Education Highest grade completed high school Preferred learning style Auditory, Verbal, Written, Learn by doing and Visual Currently enrolled in educational program? No Interested in further educational program? 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 Employment Employment Status Retired Wants help to find employment? No Meaningful activities Spending time with her family. tang, gardening Financial Situation Describe current financial situation Comfortable Financial assistance? None Service Service? No Mental Health and Addiction Treatment Current/Past substance abuse? No Medical and Physical Health Summary Physical exam in the last year? Yes Pain Screening Current pain? No Medications Is the patient compliant with medications? Yes Does the patient have Strauss Guardian in place? Not applicable Does the patient use complimentary health approaches? No Assessment & Plan Assessment & Plan (1) Generalized anxiety disorder: Code(s): F41.1 - Generalized anxiety disorder (2) Morbid obesity: Code(s): E66.01 - Morbid (severe) obesity due to excess calories Plan Patient is a 67 year old female with previous gastric bypass surgery and some disordered eating. She reported that food and overindulging was a huge part of her life for many years. There may be some binge eating behaviors as well although not recently. She is working with her therapist on managing her anxiety and also on medication. . Radha reported significantly improvement in herself in the past 4 months when she started therapy and working on herself. She continues to feel better and has been loosing weight. She is cleared for surgery when ready. Coding Level of Care Code Tele Psytx 30 mins (50541) Diagnoses Generalized anxiety disorder F41.1 Morbid obesity E66.01 Time Spent (min) 25
== END 2023-12-01 15:10 | disposition home or self-care (01) ==
LOC: HO.HBST 15:09
PROVIDERS: PCP Internal Medicine Cardiovascular Disease; Visit Provider Counselor Mental Health
DX: F41.1 Generalized anxiety disorder (principal); E66.01 Morbid (severe) obesity due to excess calories
CPT/HCPCS: 90832

== ENCOUNTER → 2023-12-01 15:09 | Outpatient (BNVA) | payer OTHER, SELFPAY | PROVIDERS: PCP Internal Medicine Cardiovascular Disease; Visit Provider Counselor Mental Health ==

== ENCOUNTER 2023-12-10 07:09 | Day surgery (SDC) | payer OTHER, SELFPAY ==
--- NOTE | 2023-12-08 15:03 | HO.ANESPROP2 ---
Documented by User: Aida Atkins NP 12/08/23 15:04 HPI - Anesthesia Eval Consult details Narrative: 68yo F for Upper Endoscopy PMFSH Active Problems Active Problems: All Active Problems (Updated 08/12/23 @ 09:31 by Krysta Haddad) Generalized anxiety disorder (Acute) Blind left eye (Acute) HTN (hypertension) with goal to be determined (Acute) Sleep apnea treated with continuous positive airway pressure (CPAP) (Acute) S/P gastric bypass (Acute) Pre-op evaluation (Acute) Morbid obesity (Acute) Past Medical History Medical History (Updated 12/09/23 @ 08:35 by Marley Bernal RN) Anxiety Sleep apnea HTN (hypertension) Retinal detachment Family History Family History (Updated 07/10/23 @ 14:15 by Judy Shen CMA) Mother CHF (congestive heart failure) A-fib Father No problems noted. Daughter No problems noted. Daughter No problems noted. Surgical History Surgical History (Updated 12/09/23 @ 08:34 by Marley Bernal RN) Hx of gastric bypass Hx of dilation and curettage Hx of colonoscopy Hx of endoscopy History of delivery Hx of total knee replacement Hx of carpal tunnel repair Social History Social History (Updated 07/10/23 @ 14:14 by Judy Shen CMA) Alcohol intake: current Alcohol intake frequency: holidays/special occasions only Patient Tobacco Use Status: Former Tobacco user Use of substances other than those prescribed or required for medical reasons: No Are you DNR?: No Advance Directives: No Advance Directives Information Provided: Yes Meds Allergies Allergy/AdvReac Type Severity Reaction Status Date / Time No Known Allergies Allergy Verified 07/10/23 14:13 Home Medications Medication Instructions Recorded Confirmed Last Taken Type amlodipine 5 mg-benazepril 20 mg 1 cap PO DAILY 06/12/23 07/10/23 Unknown History capsule cholecalciferol (vitamin D3) 50 50 mcg PO DAILY 06/12/23 07/10/23 Unknown History mcg (2,000 unit) tablet duloxetine 60 mg capsule,delayed 120 mg PO DAILY 06/12/23 07/10/23 Unknown History release ferrous sulfate 325 mg (65 mg 325 mg PO DAILY 06/12/23 07/10/23 Unknown History iron) tablet (FeroSul) Assessment and Plan Assessment Anesthesia Assessment: Chart Reviewed Documented by User: Grey Hendrix MD 12/10/23 07:48 PMF Past Medical History Medical History (Updated 12/09/23 @ 08:35 by Marley Bernal RN) Anxiety Sleep apnea HTN (hypertension) Retinal detachment Family History Family History (Updated 07/10/23 @ 14:15 by Judy Shen CMA) Mother CHF (congestive heart failure) A-fib Father No problems noted. Daughter No problems noted. Daughter No problems noted. Family history of problems with anesthesia: No Surgical History Surgical History (Updated 12/09/23 @ 08:34 by Marley Bernal RN) Hx of gastric bypass Hx of dilation and curettage Hx of colonoscopy Hx of endoscopy History of delivery Hx of total knee replacement Hx of carpal tunnel repair History of Problems with Anesthesia: No Social History Social History (Updated 07/10/23 @ 14:14 by Judy Shen CMA) Alcohol intake: current Alcohol intake frequency: holidays/special occasions only Patient Tobacco Use Status: Former Tobacco user Use of substances other than those prescribed or required for medical reasons: No Are you DNR?: No Advance Directives: No Advance Directives Information Provided: Yes Meds Allergies Allergy/AdvReac Type Severity Reaction Status Date / Time No Known Allergies Allergy Verified 07/10/23 14:13 Home Medications Medication Instructions Recorded Confirmed Last Taken Type amlodipine 5 mg-benazepril 20 mg 1 cap PO DAILY 06/12/23 07/10/23 Unknown History capsule cholecalciferol (vitamin D3) 50 50 mcg PO DAILY 06/12/23 07/10/23 Unknown History mcg (2,000 unit) tablet duloxetine 60 mg capsule,delayed 120 mg PO DAILY 06/12/23 07/10/23 Unknown History release ferrous sulfate 325 mg (65 mg 325 mg PO DAILY 06/12/23 07/10/23 Unknown History iron) tablet (FeroSul) Exam Airway Mallampati Class: III TM Dist: <=3cm Neck ROM: Full Partial: Upper and Lower Loose/Missing/Broken Teeth: No Heart: rrr Lungs: cta butdistant Assessment and Plan Final Anesthetic Review Family History of Problems with Anesthesia: No History of Problems with Anesthesia: No NPO: Yes ASA Class: III Final Preanesthetic Review: No Changes in Pt Med Stat, Meds/Allgs Chart Reviewed, Consent Obtained/Reviewed and Anes Risks/Benef Reviewed Patient Risk: Intermediate Procedure Risk: Intermediate Anesthetic Plan Anesthetic Plan: MAC: Disposition: Standard PACU
[2023-12-10 07:14] VITALS: BMI 46.6
[2023-12-10 07:28] VITALS: BP 119/59; PULSE 77; RESP 16; TEMP 36.2; O2SAT 95
--- NOTE | 2023-12-10 07:41 | MHC.SHP ---
Pre-Procedural Eval Section A - 24 Hr Update-Section A only Date of Service: 12/10/23 The patient is an INPATIENT: No The patient has been examined within 24 hours of the surgical procedure. The History & Physical has been completed within 30 days and I have reviewed it.: Yes Section B - Complete if H&P > 30 days Chief Complaint: Bariatric surgery status Details of Present Illness: Diaphragmatic hernia Relevant Family History (Specify if Yes): No Relevant Social History: None Present Medications: None Medical History: No relevant PMH History of Previous Operations: Relevant previous surgery/procedure and date(s) (lap gastric bypass) Allergies: Allergies Allergy/AdvReac Type Severity Reaction Status Date / Time No Known Allergies Allergy Verified 07/10/23 14:13 Review of Systems Sugical H&P ROS: Negative: Constitution, Cardiovascular, Respiratory, Neurological, Psychiatric, Hem-Onc, Allergic/Immunologic, Gastrointestinal, Genitourinary, Musculoskeletal, Integumentary, Endocrine and Eyes/Ears/Nose/Throat Exam Surgical H&P Exam: Normal: HEENT, Normal: Heart, Normal: Lungs, Normal: Extremities, Normal: Abdomen, Normal: Skin and Normal: Neurological Plan Diagnosis/Plan: Unchanged (EGD to assess the diaphragmatic hernia. Risks and complications of bleeding and perforation were discussed) I have reviewed the history and physical and performed a pertinent physical examination on my patient. No changes have occurred unless specified. Time Spent With Patient Time: Total time managing care of this patient today ____ minutes.
[2023-12-10] MEDS: Lactated Ringers 1,000 ML 80 ML IVCONT (07:46)
--- NOTE | 2023-12-10 08:17 | PM.OP ---
Brief Operative Note Date of Service: 12/10/23 Pre-op diagnosis: Moderate diaphragmatic hernia Post-op diagnosis: same Procedure: PROCEDURE DATE: 12/10/2023 PREOPERATIVE DIAGNOSIS: GERD, moderate size diaphragmatic hernia, s/p gastric bypass POSTOPERATIVE DIAGNOSIS: ?Same as above. 1) Redundant gastric pouch, 2) Moderate size diaphragmatic hernia, 3) small superficial anastomotic ulcer PROCEDURE: [id number] with biopsies Surgeon: ?Abhilsah Combs M.D.. Ph.D. Family Court Counsellor: ?None ? Anesthesia: IV sedation Estimated blood loss: ?Minimal FINDINGS AND PROCEDURE: ? OPERATIVE INDICATIONS: ?The patient is a 68 year old female known to me who underwent a laparoscopic gastric bypass by Dr. Irizarry. The patient had inadequate weight loss so far and was found to have a moderate size diaphragmatic hernia on UGI.? Based on this information I recommended an upper endoscopy to evaluate the patient's symptoms.? Risks and complications of the surgery were discussed with the patient in advance particularly the possibility of perforation or bleeding that may require surgical intervention. The patient understood the risks and was in agreement with the plan. ? PROCEDURE: After informed consent was obtained by the patient, the patient was ?transferred to the Operating Room and was placed in the supine position.? After successful induction of IV sedation, a mouth block was placed and the patient was placed in the left lateral decubitus position. An upper endoscopy was performed next, the oropharynx and esophagus appeared within the normal limits. There was a moderate size hiatal hernia (GE junction at 36cm and hiatus at 41cm).? The z-line was smooth. Two biopsies were obtained from the distal esophagus 2-3 cm proximal to the GE junction and two biopsies from the GE junction. The gastric pouch was entered. It was evenly enlarged. There was no gastritis and the gastrojejunostomy was patent. The GJ anastomosis was at 42cm from incisors. A biopsy was obtained from the gastric pouch. No significant bleeding was noted from any of the biopsy sites. There was a very small superficial anastomotic ulcer.? At that point the scope was advanced into the proximal small intestine (proximal Ilene limb) which appeared to be normal as well. The blind end of the Ilene limb was not elongated. The Ilene limb and the pouch were decompressed and the scope was withdrawn from the patient's mouth. The patient was awaken and was transferred in stable condition to the Recovery Room for further care. I was present and performed all steps of the procedure. There were no residents to assist with this case. Abhilash Combs M.D., Ph.D. Surgeon: aLn Combs MD Anesthesia: MAC Was an Family Court Counsellor used for this Procedure?: No Estimated blood loss (mL): 0 IV fluids (mL): 400 Urine output (mL): 0 (No Rodriguez to record output) Pathology: other (1) Gastric pouch, 2) GE junction x2, 3) distal esophagus x2) Condition: stable Disposition: PACU
[2023-12-10 08:54] VITALS: BP 127/75; PULSE 67; RESP 16; TEMP 36.9; O2SAT 99
[2023-12-10 09:09] VITALS: BP 125/79; PULSE 64; RESP 18; TEMP 36.7; O2SAT 96
== END 2023-12-10 09:51 | disposition home or self-care (01) ==
PROVIDERS: PCP Internal Medicine Cardiovascular Disease; Visit Provider Surgery
PROC: 0DJ08ZZ Inspection of Upper Intestinal Tract, Via Natural or Artificial Opening Endoscopic (ICD-10-PCS; CPT 43235; principal; 2023-12-10 08:20)
DX: K95.89 Other complications of other bariatric procedure (principal); K44.9 Diaphragmatic hernia without obstruction or gangrene; K21.9 Gastro-esophageal reflux disease without esophagitis; K28.9 Gastrojejunal ulcer, unspecified as acute or chronic, without hemorrhage or perforation; Z98.84 Bariatric surgery status; I10 Essential (primary) hypertension; G47.30 Sleep apnea, unspecified; Z99.89 Dependence on other enabling machines and devices; F41.9 Anxiety disorder, unspecified; Z87.891 Personal history of nicotine dependence; Z79.899 Other long term (current) drug therapy; Z98.890 Other specified postprocedural states
CPT/HCPCS: 43239; 88305; 88313; 88342; J2704

== ENCOUNTER → 2023-12-10 07:09 | Outpatient (BNV) | payer OTHER, SELFPAY | PROVIDERS: PCP Internal Medicine Cardiovascular Disease; Visit Provider Surgery | DX: K44.9 Diaphragmatic hernia without obstruction or gangrene (principal); K95.89 Other complications of other bariatric procedure; K28.9 Gastrojejunal ulcer, unspecified as acute or chronic, without hemorrhage or perforation | CPT/HCPCS: 43239 ==

== ENCOUNTER 2023-12-26 07:58 | Outpatient (AMB) | payer OTHER, SELFPAY ==
--- NOTE | 2023-12-26 08:56 | A.OFFVIS_ITS ---
VS Expanded 12/26/23 09:21 Height 5 ft 5 in Weight 262 lb 4 oz BMI 43.6 Body Fat % 60.3 Body Fat Mass 158.2 Fat Free Mass 104.2 Visceral Fat Rating 25 Body Water % 27.2 Body Water Mass 71.3 Basal Metabolic Rate/Score 1,395 Intake Visit Reasons: TV Consult/Transfer Shanel Allergies No Known Allergies Allergy (Verified 12/26/23 08:56) Medication List - Last Reconciled 12/26/23 by Lan Combs MD amlodipine-benazepril 5-20 mg 1 cap PO DAILY atorvastatin 10 mg PO DAILY cholecalciferol (vitamin D3) 50 mcg PO DAILY duloxetine 120 mg PO DAILY ferrous sulfate (FeroSul) 325 mg PO DAILY thiamine HCl (vitamin B1) 50 mg PO DAILY HPI HPI TV Consult/Transfer Shanel: Details: Start time: 8.39am, End time: 9.29am ?I spent 40 minutes speaking with the patient on the phone plus an additional 10 minutes reviewing and updating records for a total of 50 minutes HPI Comments Details: Overall weight loss: 36.3lbs, or 12.15% TBWL Is doing one Premier protein shake (1 scoop in almond milk), one Premier shake (2 scoops in almond milk), 4pm dinner (8 forkfuls of protein and 8 forkfuls of vegetables) and one Quest protein bar Snacks: carrots and salad exercise: doing stationary bike for 550 calories x5/week and some aerobic exercises x2/wk PFSH Medical History (Updated 12/26/23 @ 09:01 by Lan Combs MD) Depression DJD (degenerative joint disease) Hyperlipidemia Anxiety Sleep apnea HTN (hypertension) Retinal detachment Surgical History (Updated 12/26/23 @ 09:01 by Lan Combs MD) Hx of appendectomy Hx of gastric bypass Hx of dilation and curettage Hx of colonoscopy Hx of endoscopy History of delivery Hx of total knee replacement Hx of carpal tunnel repair Family History (Updated 07/10/23 @ 14:15 by Judy Shen CMA) Mother CHF (congestive heart failure) A-fib Father No problems noted. Daughter No problems noted. Daughter No problems noted. Social History (Updated 07/10/23 @ 14:14 by Judy Colon, GIS MAPPING TECHNICIAN) Alcohol intake: current Alcohol intake frequency: holidays/special occasions only Patient Tobacco Use Status: Former Tobacco user Telehealth Telehealth Location of provider rendering services: practice address Location of patient: address on file Patient Identification confirmed using: Name, : Yes Telehealth method: voice only Patient verbally consented to treatment: Yes Patient verbally consented to billing insurance company: Yes Patient informed of any privacy concerns related to visit: Yes Minutes spent on Phone/Video with Pt.: 50 Assessment & Plan Assessment & Plan (1) Morbid obesity: Code(s): E66.01 - Morbid (severe) obesity due to excess calories Category: Medical Plan: 1. Plan for lap sleeve gastrectomy of the gastric pouch including upper GI endoscopy. All tests has been completed and reviewed and the patient is cleared for the surgery. ?If diaphragmatic or ventral hernias are present at time of surgery, these will be repaired laparoscopically as well. Risks and complications were discussed in detail including possible conversion to an open procedure, anastomotic leak, bleeding requiring transfusion, small bowel obstruction, , DVT and pulmonary embolism, cardiac, or pulmonary complications, as prison complications such as anastomotic ulcer, insufficient weight loss and vitamin deficiencies. I emphasized the importance of close follow-up, adherence to instructions and good communication. So far she has proven to be an excellent communicator and very compliant with all our directions accomplishing a great weight loss. I believe that she is an excellent candidate and she is ready. I also told her that there is a possibility of not completing her surgery if I don't feel the anatomy is clear enough to perform the procedure safely and she understands that. 2. The patient participated in a structured preoperative lifestyle intervention program supervised by a physician the 5 months preceding the surgical procedure. The lifestyle intervention included a structured nutritional plan with a specific daily protein intake goal, an exercise plan with a 2000 calorie burn weekly goal, weekly behavior modification guidance and completion of eight 1- hour online nutritional classes and passing successfully the corresponding quizzes. Adherence to preoperative care plan was demonstrated by completing an extensive preoperative work-up. Program participation was demonstrated by c ompleting 7 visits with our medical team and by sharing weekly weight measurements weekly for 5 consecutive months via an approved body composition scale. Compliance to the lifestyle intervention was demonstrated by achieving a 36.3lbs weight-loss or 12.15% total body weight loss (TBWL). No medications were used to achieve this weight loss. In our published experience an over 7% preoperative TBWL, achieved by meeting the diet and exercise goals of our program improves surgical outcomes, reduces the potential for surgical complications, and predicts a statistically significant higher weight loss up to 6 years postoperatively. 3. Change nutritional plan to one Premier protein shake (1 scoop in almond milk) at 9am-11am, a Quest protein bar at 12pm-2pm, dinner at 4pm (8 forks of meat and 8 forks of salad or vegetables), a Quest protein bar at 6pm-8pm and one Premier protein shake (1 scoop in almond milk) at 9pm-11pm 4. Continue present exercise plan doing the stationary bike for 550 calories, 5 days per week and some aerobic exercise videos 2 days per week 5. Send me weight measurements weekly on Fridays
[2023-12-26 09:21] VITALS: BMI 43.6
== END 2023-12-26 09:30 | disposition home or self-care (01) ==
LOC: HO.HBS 07:58
PROVIDERS: PCP Internal Medicine Cardiovascular Disease; Visit Provider Surgery
DX: E66.01 Morbid (severe) obesity due to excess calories (principal); Z68.41 Body mass index [BMI] 40.0-44.9, adult
CPT/HCPCS: 99215

== ENCOUNTER → 2023-12-26 07:58 | Outpatient (BNVA) | payer OTHER, SELFPAY | PROVIDERS: PCP Internal Medicine Cardiovascular Disease; Visit Provider Surgery ==

== ENCOUNTER 2024-02-20 08:06 | Outpatient (AMB) | payer OTHER, SELFPAY ==
--- NOTE | 2024-02-20 09:20 | A.OFFVIS_ITS ---
VS Expanded 02/20/24 09:32 Height 5 ft 5 in Weight 256 lb 8 oz BMI 42.7 Body Fat % 58.8 Body Fat Mass 150.9 Fat Free Mass 105.8 Visceral Fat Rating 24 Body Water % 28.2 Body Water Mass 72.4 Intake Visit Reasons: TV Pre Op LSG 03/02/24 Allergies No Known Allergies Allergy (Verified 02/20/24 09:20) Medication List - Last Reconciled 02/20/24 by Lan Combs MD amlodipine-benazepril 5-20 mg 1 cap PO DAILY atorvastatin 10 mg PO DAILY cholecalciferol (vitamin D3) 50 mcg PO DAILY duloxetine 120 mg PO DAILY ferrous sulfate (FeroSul) 325 mg PO DAILY ondansetron 4 mg PO Q12H pantoprazole 40 mg PO DAILY polyethylene glycol 3350 17 grams PO DAILY sucralfate 10 mL PO BID thiamine HCl (vitamin B1) 50 mg PO DAILY HPI HPI TV Pre Op LSG 03/02/24: Details: Start time: 9.24am, End time: 9.44am ?I spent 15 minutes speaking with the patient on the phone plus an additional 5 minutes reviewing and updating records for a total of 20 minutes HPI Comments Details: Overall weight loss: 41.9lbs, or 14.03% Is doing 2 Pure protein shakes (1 scoop in almond milk), 2 Quest protein bars and one meal (8 forks of protein and 8 forks of salad) Exercise: is doing the stationary bike daily for 500 calories x5/week and exercise videos x2/wk PFSH Medical History (Updated 02/20/24 @ 09:16 by Lan Combs MD) Intestinal malabsorption Depression DJD (degenerative joint disease) Hyperlipidemia Anxiety Sleep apnea HTN (hypertension) Retinal detachment Surgical History (Updated 12/26/23 @ 09:01 by Lan Combs MD) Hx of appendectomy Hx of gastric bypass Hx of dilation and curettage Hx of colonoscopy Hx of endoscopy History of delivery Hx of total knee replacement Hx of carpal tunnel repair Family History (Updated 07/10/23 @ 14:15 by Judy Shen CMA) Mother CHF (congestive heart failure) A-fib Father No problems noted. Daughter No problems noted. Daughter No problems noted. Social History (Updated 07/10/23 @ 14:14 by BRINDA Chase Alcohol intake: current Alcohol intake frequency: holidays/special occasions only Patient Tobacco Use Status: Former Tobacco user Telehealth Telehealth Telehealth Platform: Telephone Location of provider rendering services: practice address Location of patient: address on file Patient Identification confirmed using: Name, : Yes Telehealth method: voice only Patient verbally consented to treatment: Yes Patient verbally consented to billing insurance company: Yes Patient informed of any privacy concerns related to visit: Yes Minutes spent on Phone/Video with Pt.: 20 Assessment & Plan Assessment & Plan (1) Morbid obesity: Code(s): E66.01 - Morbid (severe) obesity due to excess calories Category: Medical Plan: 1. Plan for lap sleeve gastrectomy of the gastric pouch including upper GI endoscopy. All tests has been completed and reviewed and the patient is cleared for the surgery. ?If diaphragmatic or ventral hernias are present at time of surgery, these will be repaired laparoscopically as well. 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 I emphasized the importance of close follow-up, adherence to instructions and good communication. So far she has proven to be an excellent communicator and very compliant with all our directions accomplishing a great weight loss. I believe that she is an excellent candidate and she is ready. 2. Preop prescriptions were provided and explained the purpose of each one. Need to be purchased preop. Start Pantoprazole now as you get it from the pharmacy, 1 pill per day. Sucralfate and Zofran are for after surgery as needed. 3. Bowel prep: please do 7 packets ?of Miralax mixing each one with a an 8oz glass of water, crystal light, gatorade zero, or propel ?on 02/29/24 and the same amount on 03/01/24. The Miralax you begin with one packet at a time in 8oz water or crystal light, gatorade zero, or propel ?as early in the day as you can and you do them back to back until you finish them. Continue the protein shakes during? the bowel prep. 4. Needs to purchase 1oz medicine cups . 5. Needs to purchase Children's liquid Tylenol for postop pain control. 6. Avoid aspirin, motrin, Advil, Aleve, Ibuprofen, Naproxyn. Tylenol is OK. 7. She needs to purchase the Celebrate 4:1 protein shakes from the hospital's gift shop. 8. Will do basic preop blood work-up any day between Friday02/23/24 and Friday02/27/24 fasting for 12 hours and is scheduled to see the Anesthesiologist prior to the day of surgery. 9. Importance of adherence to postop folllow-up and recommendations was underscored and she understands that. 10. Stop food and bars as of Friday02/23/24 and continue with 3?Pure protein shakes (HALF scoop each in 8oz almond milk) at 9am-11am, 12pm-2pm and 3pm-5pm and TWO more Pure protein shake with ONE scoop in 8oz of almond milk at 6pm-8pm and 9pm-11pm 11. No soups, broths or V8 12. The patient's?medical?history has been reviewed and they are considered low risk for post op DVT and therefore DVT prophylaxis is not considered necessary. Travel after surgery was reviewed. The patient has not disclosed any travel plans during the first 30 days after surgery and they have been advised that within the first 30 days after surgery any bus, plane, train or car travel over 2 hours in duration is contraindicated due to the possibility of developing blood clots from immobility. Any travel, needs to include periods of ambulation of 10 minutes in duration every 2 hours.? Patient was instructed to discuss any plans for travel during this period with their bariatric surgeon.? 13. Use your CPAP daily and bring it to the hospital with your mask 14. Please take at the day of surgery the following medications: Only the amlodipine/Benazepril based on the following parameters: Measure your blood pressure daily in the morning as of tomorrow. If your blood pressure is: Below 120/70: do not take the medication 121/71 to 140/90: take half pill of the medication Over 141/91: take the whole pill 15. Stop any control pills and don't use them for one month after surgery 16. Absolutely no smoking or vaping, or marijuana until the surgery and for at least the first 4 weeks. Only nicotine patches are allowed. 17. Send me weight measurements on Friday02/27/24 and then on Friday03/02/24, the day of surgery before you go to the hospital. 18. Avoid any steroids by mouth for any reason. Let me know if someone prescr ibes them to you 19. These instructions supersede anything else you read in the handbook, anything you watched in videos or classes or you were told by any other provider. If there is any conflict, you follow the above instructions and nothing else. Orders: Orders Prothrombin Time INR Today E66.01 - Morbid (severe) obesity due to excess calories, I10 - Essential (primary) hypertension, K90.9 - Intestinal malabsorption, unspecified Type and Screen Today E66.01 - Morbid (severe) obesity due to excess calories, I10 - Essential (primary) hypertension, K90.9 - Intestinal malabsorption, unspecified C Reactive Protein Today E66.01 - Morbid (severe) obesity due to excess calories, I10 - Essential (primary) hypertension, K90.9 - Intestinal malabsorption, unspecified Lipid Panel Today E66.01 - Morbid (severe) obesity due to excess calories, I10 - Essential (primary) hypertension, K90.9 - Intestinal malabsorption, unspecified Hemoglobin A1c Today E66.01 - Morbid (severe) obesity due to excess calories, I10 - Essential (primary) hypertension, K90.9 - Intestinal malabsorption, unspecified Insulin Today E66.01 - Morbid (severe) obesity due to excess calories, I10 - Essential (primary) hypertension, K90.9 - Intestinal malabsorption, unspecified Comprehensive Met. Panel Today E66.01 - Morbid (severe) obesity due to excess calories, I10 - Essential (primary) hypertension, K90.9 - Intestinal malabsorption, unspecified TSH reflex Free T4 Today E66.01 - Morbid (severe) obesity due to excess calories, I10 - Essential (primary) hypertension, K90.9 - Intestinal malabsorption, unspecified Partial Thromboplastin Time Today E66.01 - Morbid (severe) obesity due to excess calories, I10 - Essential (primary) hypertension, K90.9 - Intestinal malabsorption, unspecified Complete Blood Count Auto Diff Today E66.01 - Morbid (severe) obesity due to excess calories, I10 - Essential (primary) hypertension, K90.9 - Intestinal malabsorption, unspecified Medications: New pantoprazole 40 mg PO DAILY 90 tabs 0RF K21.9 - Gastro-esophageal reflux disease without esophagitis ondansetron Only take one every 12 hours as needed if you have nausea 4 mg PO Q12H 20 tabs 0RF nausea and vomiting R11.0 - Nausea polyethylene glycol 3350 Mix each measuring cup with 8oz of water, Crystal light, or Gatorade zero, or Propel and do 7 measuring cups on 02/29/24 and another 7 measuring cups on 03/01/24 17 grams PO DAILY 238 grams 0RF Z01.818 - Encounter for other preprocedural examination sucralfate 10 mL PO BID 600 mL 2RF K21.9 - Gastro-esophageal reflux disease without esophagitis
[2024-02-20 09:32] VITALS: BMI 42.7
== END 2024-02-20 09:45 | disposition home or self-care (01) ==
LOC: HO.HBS 08:06
PROVIDERS: PCP Internal Medicine Cardiovascular Disease; Visit Provider Surgery
DX: E66.01 Morbid (severe) obesity due to excess calories (principal); Z68.41 Body mass index [BMI] 40.0-44.9, adult
CPT/HCPCS: 99499

== ENCOUNTER → 2024-02-20 08:06 | Outpatient (BNVA) | payer OTHER, SELFPAY | PROVIDERS: PCP Internal Medicine Cardiovascular Disease; Visit Provider Surgery ==

== ENCOUNTER 2024-02-27 08:13 | Outpatient (REF) | payer OTHER, SELFPAY ==
[2024-02-27 08:40] LABS: MANUAL DIFF FLAG NO
[2024-02-27 09:04] LABS: Basophils Percent Auto 0.8 % (0-2); Eosinophils Absolute Auto 0.1 X10*3/uL (0.0-0.4); Eosinophils Percent Auto 3.5 % (0-4); Hematocrit 47.6 % (37.0-47.0); Imm Gran Abs Auto 0.01 X10*3/uL (0.00-0.03); Imm Gran Pct Auto 0.3 % (0.0-0.4); Lymphocytes Percent Auto 26.7 % (20-40); Mean Corpuscular HGB Conc 33.6 g/dl (31.0-35.0); Mean Corpuscular Hemoglobin 29.3 pg (27.0-33.0); Mean Corpuscular Volume 87.2 fL (80.0-98.0); Mean Platelet Volume 9.6 fL (9.4-12.3); Monocytes Absolute Auto 0.4 X10*3/uL (0.1-1.2); Monocytes Percent Auto 10.9 % (2-11); Neutrophils Absolute Auto 2.1 x10*3/uL (2.0-8.3); Neutrophils Percent Auto 57.8 % (45-73); Platelet Count 235 X10*3/uL (160-400); Red Blood Count 5.46 X10*6/uL (4.20-5.50); Red Cell Distribution Width 14.3 % (11.0-16.0); White Blood Count 3.7 X10*3/uL (4.8-10.8)
[2024-02-27 09:11] LABS: INTERNATIONAL NORM RATIO 0.9 (0.9-1.1); Prothrombin Time 11.4 SEC (11.1-13.3)
[2024-02-27 09:12] LABS: Estimated Average Glucose 108 mg/dL; Hemoglobin A1c % 5.4 % (<6.0)
[2024-02-27 09:13] LABS: Partial Thromboplastin Time 39.8 SEC (26.0-36.8)
[2024-02-27 10:04] LABS: Alanine Aminotransferase 16 U/L (0-31); Albumin Level 4.3 g/dL (3.5-5.0); Alkaline Phosphatase 93 U/L (39-117); Anion Gap 15 (12-20); Aspartate Amino Transferase 18 U/L (5-31); Bilirubin Total 0.6 mg/dL (0.0-1.0); Blood Urea Nitrogen 16 mg/dL (9-16); C Reactive Protein 0.48 mg/dL (< or = 0.50); Calcium 10.5 mg/dL (8.4-10.2); Carbon Dioxide 23 mmol/L (22-29); Chloride 106 mmol/L (96-108); Cholesterol 174 mg/dL (<200); Estimated Glomerular Filt Rate > 60; Glucose Random 85 mg/dL (60-115); HDL Cholesterol 57 mg/dL (>40); LDL Cholesterol Calculated 104 mg/dL (<100); Potassium 3.9 mmol/L (3.3-5.1); Sodium 140 mmol/L (135-145); Total Protein 7.6 g/dL (6.5-8.0); Triglycerides 67 mg/dL (<150)
[2024-02-27 10:09] LABS: TSH reflex Free T4 0.72 uIU/mL (0.32-4.0)
[2024-02-27 10:50] LABS: Insulin 6 uU/mL (2-29)
== END 2024-02-27 08:14 | disposition home or self-care (01) ==
LOC: HO.LAB 08:13
PROVIDERS: Visit Provider Surgery
DX: E66.01 Morbid (severe) obesity due to excess calories (principal); I10 Essential (primary) hypertension; K90.9 Intestinal malabsorption, unspecified; Z13.1 Encounter for screening for diabetes mellitus
CPT/HCPCS: 36415; 80053; 80061; 83036; 83525; 84443; 85025; 85610; 85730; 86140

== ENCOUNTER 2024-03-02 05:53 | Inpatient (IN) | payer OTHER, SELFPAY ==
[2024-02-23 16:32] VITALS: BMI 43.3
--- NOTE | 2024-03-01 08:09 | HO.ANESPROP2 ---
Documented by User: Aida Atkins NP 03/01/24 08:14 HPI - Anesthesia Eval Consult details Narrative: 68yo F for Gastric Bypass Revision Laparoscopic,TO a Gastrectomy Sleeve,EGD,possible diaphragmatic hernia,possible ventral hernia,possible Open s/p EGD 12/2023 with TIVA PMFSH Active Problems Active Problems: All Active Problems Generalized anxiety disorder (Acute) Blind left eye (Acute) HTN (hypertension) with goal to be determined (Acute) Sleep apnea treated with continuous positive airway pressure (CPAP) (Acute) S/P gastric bypass (Acute) Pre-op evaluation (Acute) Morbid obesity (Acute) Intestinal malabsorption (Acute) Depression (Acute) DJD (degenerative joint disease) (Acute) Hyperlipidemia (Acute) Past Medical History Medical History History of blood transfusion (~2013) Murmur Intestinal malabsorption Depression DJD (degenerative joint disease) Hyperlipidemia Anxiety Sleep apnea HTN (hypertension) Retinal detachment Family History Family History Mother CHF (congestive heart failure) A-fib Father No problems noted. Daughter No problems noted. Daughter No problems noted. Family history of problems with anesthesia: No Surgical History Surgical History Hx of detached retina repair (~2019) Hx of appendectomy Hx of gastric bypass Hx of dilation and curettage Hx of colonoscopy Hx of endoscopy History of delivery Hx of total knee replacement Hx of carpal tunnel repair History of Problems with Anesthesia: No Social History Social History Household Members: Spouse Household Members Other:: 2-200# dogs-[place] Housing: House Are you a primary healthcare recruiter to a significant other at home: No Do you presently have visiting nurse or other home services: No Alcohol intake: current Alcohol intake frequency: holidays/special occasions only Comment: aware of trip hazaed Patient Tobacco Use Status: Former Tobacco user Tobacco use type: Cigarette Years Smoked: quit 1988 Use of substances other than those prescribed or required for medical reasons: No Have you been hit, kicked, punched, or otherwise hurt by someone within the past year? If so, by whom?: No Are you DNR?: No Advance Directives: No Advance Directives on File: No Recently lost weight without trying: No Meds Allergies Allergy/AdvReac Type Severity Reaction Status Date / Time No Known Allergies Allergy Verified 03/02/24 06:05 Home Medications ?Medication ?Instructions ?Recorded ?Confirmed ?Last Taken ?Type cholecalciferol (vitamin D3) 50 50 mcg PO DAILY 06/12/23 03/02/24 03/01/24 History mcg (2,000 unit) tablet duloxetine 60 mg capsule,delayed 120 mg PO DAILY 06/12/23 03/02/24 03/01/24 History release ferrous sulfate 325 mg (65 mg 325 mg PO DAILY 06/12/23 03/02/24 03/01/24 History iron) tablet (FeroSul) atorvastatin 10 mg tablet 10 mg PO DAILY 12/26/23 03/02/24 03/01/24 History amlodipine 10 mg-benazepril 40 mg 1 cap PO DAILY 02/23/24 03/02/24 03/02/24 History capsule Exam Height,Weight and Vital Signs: Height 5 ft 5 in Weight 117.934 kg Pertinent Lab Results Pertinent Lab Results: Laboratory Tests 02/27/24 08:30 Blood Type A Positive Antibody Screen NEGATIVE Laboratory Tests 02/27/24 08:38 WBC 3.7 L Hgb 16.0 Hct 47.6 H Plt Count 235 Sodium 140 Potassium 3.9 Chloride 106 Carbon Dioxide 23 BUN 16 Creatinine 0.73 Narrative Narrative: EKG 08/2023 Vent. Rate : 063 BPM Atrial Rate : 063 BPM P-R Int : 146 ms QRS Dur : 088 ms QT Int : 390 ms P-R-T Axes : 011 014 024 degrees QTc Int : 399 ms Normal sinus rhythm Normal ECG No previous ECGs available Assessment and Plan Assessment Anesthesia Assessment: Chart Reviewed Final Anesthetic Review Family History of Problems with Anesthesia: No History of Problems with Anesthesia: No Documented by User: Genesis Yarbrough MD 03/02/24 08:48 HPI - Anesthesia Eval Consult details Narrative: 68yo F for EGD, Laparoscopic Gastric Bypass Revision TO Sleeve Gastrectomy, possible diaphragmatic hernia repair, possible ventral hernia repair, possible open s/p EGD 12/2023 with TIVA PMFSH Active Problems Active Problems: All Active Problems Generalized anxiety disorder (Acute) Blind left eye (Acute) HTN (hypertension) with goal to be determined (Acute) Sleep apnea treated with continuous positive airway pressure (CPAP) (Acute) S/P gastric bypass (Acute) Pre-op evaluation (Acute) Morbid obesity (Acute) BMI 41.1 Intestinal malabsorption (Acute) Depression (Acute) DJD (degenerative joint disease) (Acute) Hyperlipidemia (Acute) Past Medical History Medical History History of blood transfusion (~2013) Murmur Intestinal malabsorption Depression DJD (degenerative joint disease) Hyperlipidemia Anxiety Sleep apnea HTN (hypertension) Retinal detachment Family History Family History Mother CHF (congestive heart failure) A-fib Father No problems noted. Daughter No problems noted. Daughter No problems noted. Family history of problems with anesthesia: No Surgical History Surgical History Hx of detached retina repair (~2019) Hx of appendectomy Hx of gastric bypass Hx of dilation and curettage Hx of colonoscopy Hx of endoscopy History of delivery Hx of total knee replacement Hx of carpal tunnel repair History of Problems with Anesthesia: No Social History Social History Household Members: Spouse Household Members Other:: 2-200# dogs-[place] Housing: House Are you a primary healthcare recruiter to a significant other at home: No Do you presently have visiting nurse or other home services: No Alcohol intake: current Alcohol intake frequency: holidays/special occasions only Comment: aware of trip hazaed Patient Tobacco Use Status: Former Tobacco user Tobacco use type: Cigarette Years Smoked: quit 1988 Use of substances other than those prescribed or required for medical reasons: No Have you been hit, kicked, punched, or otherwise hurt by someone within the past year? If so, by whom?: No Are you DNR?: No Advance Directives: No Advance Directives on File: No Recently lost weight without trying: No Meds Allergies Allergy/AdvReac Type Severity Reaction Status Date / Time No Known Allergies Allergy Verified 03/02/24 06:05 Home Medications ?Medication ?Instructions ?Recorded ?Confirmed ?Last Taken ?Type cholecalciferol (vitamin D3) 50 50 mcg PO DAILY 06/12/23 03/02/24 03/01/24 History mcg (2,000 unit) tablet duloxetine 60 mg capsule,delayed 120 mg PO DAILY 06/12/23 03/02/24 03/01/24 History release ferrous sulfate 325 mg (65 mg 325 mg PO DAILY 06/12/23 03/02/24 03/01/24 History iron) tablet (FeroSul) atorvastatin 10 mg tablet 10 mg PO DAILY 12/26/23 03/02/24 03/01/24 History amlodipine 10 mg-benazepril 40 mg 1 cap PO DAILY 02/23/24 03/02/24 03/02/24 History capsule Exam Height,Weight and Vital Signs: Height 5 ft 5 in Weight 117.934 kg Vital Signs Temp Pulse Resp BP Pulse Ox O2 Del Method 03/02/24 06:25 97.0 F 75 16 125/74 95 Room Air Pertinent Lab Results Pertinent Lab Results: Laboratory Tests 02/27/24 08:30 Blood Type A Positive Antibody Screen NEGATIVE Laboratory Tests 02/27/24 08:38 WBC 3.7 L Hgb 16.0 Hct 47.6 H Plt Count 235 Sodium 140 Potassium 3.9 Chloride 106 Carbon Dioxide 23 BUN 16 Creatinine 0.73 Airway Mallampati Class: II TM Dist: >3cm Neck ROM: Full Denture: Upper Partial: Lower Loose/Missing/Broken Teeth: Yes (As above. Denies broken or loose teeth ) Heart: RRR + ?murmur Lungs: CTAB Assessment and Plan Assessment Anesthesia Assessment: Anesthesia Plan Discussed and Chart Reviewed Final Anesthetic Review Family History of Problems with Anesthesia: No History of Problems with Anesthesia: No NPO: Yes ASA Class: III Final Preanesthetic Review: No Changes in Pt Med Stat, Meds/Allgs Chart Reviewed, Consent Obtained/Reviewed and Anes Risks/Benef Reviewed Patient Risk: Intermediate Procedure Risk: Intermediate Assessment/Block/Sedation in : Assess/Block/Sedation- Anesthetic Plan Anesthetic Plan: GA Disposition: Standard PACU and Inp. Admit - Standard Bed
[2024-03-02] VITALS (12 sets, daily range): BP systolic 121–141; BP diastolic 58–84; PULSE 53–104; RESP 13–20; TEMP 36.1–36.5; O2SAT 92–98; BMI 41.1
[2024-03-02] MEDS: Lactated Ringers 1,000 ML 100 ML IVCONT ×3 (06:26→21:28)
[2024-03-02] MEDS: Aprepitant 32 MG/4.4 ML VIAL IVPUSH (06:26)
[2024-03-02] MEDS: Lactated Ringers 1,000 ML 999 ML IV (06:26)
--- NOTE | 2024-03-02 07:01 | PC.NURSE ---
Eva called to verify home CPAP. confirmation number [id number].
--- NOTE | 2024-03-02 07:32 | P.HPSUR_ITS ---
Pre-Procedural Eval Section A - 24 Hr Update-Section A only Date of Service: 03/02/24 The patient is an INPATIENT: Yes The patient has been examined within 24 hours of the surgical procedure. The History & Physical has been completed within 30 days and I have reviewed it.: Yes Section B - Complete if H&P > 30 days Chief Complaint: Morbid obesity Relevant Family History (Specify if Yes): No Relevant Social History: None Present Medications: None Medical History: No relevant PMH History of Previous Operations: Relevant previous surgery/procedure and date(s) (laparoscopic gastric bypass) Allergies: Allergies Allergy/AdvReac Type Severity Reaction Status Date / Time No Known Allergies Allergy Verified 03/02/24 06:05 Review of Systems Sugical H&P ROS: Negative: Constitution, Cardiovascular, Respiratory, N eurological, Psychiatric, Hem-Onc, Allergic/Immunologic, Gastrointestinal, Genitourinary, Musculoskeletal, Integumentary, Endocrine and Eyes/Ears/Nose/Throat Exam Surgical H&P Exam: Normal: HEENT, Normal: Heart, Normal: Lungs, Normal: Extremities, Normal: Abdomen, Normal: Skin and Normal: Neurological Plan Diagnosis/Plan: Unchanged I have reviewed the history and physical and performed a pertinent physical examination on my patient. No changes have occurred unless specified. Time Spent With Patient Time: Total time managing care of this patient today ____ minutes.
--- NOTE | 2024-03-02 07:37 | PM.OP ---
Brief Operative Note Date of Service: 03/02/24 Pre-op diagnosis: Morbid obesity and diaphragmatic hernia Post-op diagnosis: same Procedure: PROCEDURE: Igwjeote-gnsvcq-qsrfabzivuz, laparoscopic repair of incarcerated diaphragmatic hernia, laparoscopic lysis of adhesions and laparoscopic sleeve gastrectomy INDICATIONS: This is a 68 year-old female with a BMI of 49.5 kg/m2, history of failed gastric bypass surgery and associated comorbid conditions as described previously. After appropriate workup and a 48.1 lbs preoperative weight loss, or 16.1% TBWL was achieved, the patient was electively scheduled for laparoscopic, possibly open sleeve gastrectomy of the gastric pouch. The risks and complications of the procedure were discussed with the patient in advance, particularly the possibility of ; pulmonary embolism; staple line leak; bleeding; GERD; cardiac, pulmonary, or renal complications; as well as long-term problems such as insufficient weight loss, vitamin deficiency, strictures, or ulcers. The patient understood all the risks, and was in agreement to proceed with surgery. DESCRIPTION OF PROCEDURE: After informed consent was obtained from the patient, the patient was given preoperative antibiotics, and was transferred to the operating room. After successful induction of general anesthesia, pneumatic compressive devices were placed on both lower extremities. An upper endoscopy was performed next. The oropharynx and esophagus appeared to be within normal limits. There was a diaphragmatic hernia present of moderate size consistent with the findings of the preoperative upper GI. The stomach was entered. Then after all fluid and air were suctioned and the stomach was fully decompressed, the scope was withdrawn and secured in the mid esophagus. The patient was then prepped and draped in the usual sterile manner, and abdominal access was established at the right upper quadrant with the Sarabjit technique. A 12 mm blunt port was inserted, and the abdomen was insufflated with CO2 to a pressure of 15 mmHg. Under direct visualization, additional ports were placed, specifically two 5 mm Versi-step ports to the left upper quadrant, and a 5 mm Versi-Step port to the right upper quadrant. 1% lidocaine plan was used to infiltrate all port sites as well as all fascia defects. Following that, the patient was placed in a steep reverse Trendelenburg position. An additional 5 mm port was placed to the right flank for the Mediflex retractor that was used to retract the left lobe of the liver. There were some adhesions between the omentum and the abdominal wall in the upper abdomen which were lysed with the Thunderbeat. There were also adhesions between the undersurface of the left lobe of the liver which was lysed with the Thunderbeat. Once this was done the liver retractor was re-positioned to get exposure to the hiatal area. Some omental fat overlying the Ilene limb was mobilized and the gastro-jejunostomy was identified. I continued by dissecting between the gastric remnant and the gastric pouch .Separation of the gastric pouch from the gastric remnant was difficult because of the severe fibrotic reaction at the previous operation. Nevertheless, those were divided and that allowed exposure to the left erica. The gastro-esophageal fat pad was opened with the ultrasonic device (Thunderbeat, Olympus) and the anterior esophagus and hiatus were exposed. The angle of His was opened with the ultrasonic device the fundus of the stomach from any diaphragmatic and splenic attachments. Adhesiolysis took approximately 90 min to complete. There was an obvious significant-sized hiatal hernia. I continued dissecting along the hiatus toward the left erica and the angle of His. I fully mobilized and resected the large fat pad that was incarcerated in the hernia. I then continued by dissecting even further into the posterior retro-esophageal space all the way to the angle of His. I continued to mobilize the esophagus into the mediastinum circumferentially. Both vagal nerves were seen and preserved. At that point, I was able to have at least 3 to 5 cm of esophagus into the abdomen.? After I completely mobilized the esophagus from both the left and right erica and I had a good mobilization of the esophagus circumferentially, I closed the hernia defect with four interrupted #0 Surgidac sutures using the Endo Stitch device, which were placed one anterior and three posterior to the esophagus. ? Thepouch was very short but there was redundancy of the stomach laterally and posteriorly. The redundant stomach was then divided with two Endo ADAN-45 articulating purple loads using the SIGNIA stapler and loads. Every effort was made that the gastric sleeve had a tubular shape and an even caliber throughout. Once the sleeve resection was completed, the staple line of the gastric sleeve was reinforced with Hemoclips. The resected stomach and the fat pad were retrieved without difficulty from the Sarabjit port. ?An upper endoscopy was performed. There was no narrowing at the GE junction. The scope was easily advanced all the way to the Ilene limb which was clearly visualized. There was no narrowing anywhere and the pouch's caliber was even throughout. The staple line was inspected and there was no evidence of ischemia, bleeding or dehiscence. At that point the gastroscope was withdrawn from the patient?s mouth while we were decompressing the bowel and the stomach from any remaining air. I looked into the lesser sac to see how the sleeve was situating and it was situating well. There was no bleeding from the staple line, spleen, or short gastric vessels. The Mediflex retractor was removed, and the undersurface of the liver was inspected and there was no bleeding. The patient was placed in supine position. I closed the fascial defect of the 12 mm port site with a figure of eight #1 Polysorb suture. Then 30cc Ropivacaine plain with 10 mg of Dexamethasone were used to infiltrate the fascial closure as well as all skin incisions. At this point, the abdomen was deflated, all ports were removed under direct vision, and no bleeding was noted from any of the port sites. The skin incisions were irrigated with saline and were closed with 4-0 absorbable monofilament sutures. Steri-Strips and OpSites were used to cover all incisions. The patient was extubated and was transferred in stable condition to the recovery room for further care. I was present and performed all esquivel parts of the procedure. Mr. Purcell was the accounting administrative assistant. There were no residents to assist with this case. . Abhilash Combs MD, PhD, FACS Surgeon: Lan Combs MD Anesthesia: GETA, local and other (TAP block and ml Zynrelef) Was an Stain Sprayer used for this Procedure?: No Stain Sprayer: Hitesh Purcell Estimated blood loss (mL): 10 IV fluids (mL): 2,200 Urine output (mL): 160 (No Rodriguez to record output) Pathology: other (1) Stomach, 2) gastro-esophageal fat pad) Condition: stable Disposition: PACU
--- NOTE | 2024-03-02 07:45 | P.PNGS_ITS ---
Subjective Subjective Date of Service: 03/03/24 Interval history: Feels well. Mild incisional pain. She is tolerating phase 1 bariatric diet Physical Exam 2 Vital Signs: Vital Signs: Last Vital Signs Temp 97.0 F 03/02/24 06:25 Pulse 75 03/02/24 06:25 Resp 16 03/02/24 06:25 BP 125/74 03/02/24 06:25 Pulse Ox 95 03/02/24 06:25 O2 Del Method Room Air 03/02/24 06:25 BMI result Body Mass Index 41.1 GI: Inspection: Yes normal to inspection, Yes incision (clean, dry and intact) and Yes obesity Palpation (GI): Soft to palpation Extrem: Right lower extremity: normal to inspection (no calf tenderness) L eft lower extremity: normal to inspection (no calf tenderness) Objective Data Active Medications Lactated Ringer's (Lr) 1,000 mls @ 100 mls/hr IVCONT .Q10H [facility] Last Admin: 03/02/24 06:26 Dose: 100 mls/hr Documented By: MARION Lactated Ringer's (Lr) 1,000 mls @ 999 mls/hr IV .Q1H1M [facility] Stop: 03/02/24 08:00 Last Admin: 03/02/24 06:26 Dose: 999 mls/hr Documented By: MARION Labs 03/03/24 06:03 03/03/24 06:03 Procedures Date of Service Date of Service: 03/03/24 Progress Note: A&P Assessment and plan (1) Morbid obesity: Status: Acute Assessment and Plan: s/p laparoscopic sleeve gastrectomy of the gastric pouch, lysis of adhesions, diaphragmatic hernia repair Doing well Will check am labs and if OK the patient will be discharged home (2) HTN (hypertension): Status: Acute (3) Hyperlipidemia: Status: Acute (4) DJD (degenerative joint disease): Status: Acute (5) Depression: Status: Acute (6) Anxiety: Status: Acute (7) Steatosis, liver: Status: Acute (8) Liver fibrosis: Status: Acute (9) S/P laparoscopic sleeve gastrectomy: Status: Acute (10) S/P repair of paraesophageal hernia: Status: Acute (11) Diaphragmatic hernia: Status: Acute Time Spent With Patient Time: Total time managing care of this patient today ____ minutes. Quality Stroke Does the patient have a stroke diagnosis?: No VTE Prior VTE?: No VTE Risk Level:: Surgical - moderate VTE Device Contraindication: N/A - Device Ordered VTE Drug Contraindication: Treatment Not Indicated
--- NOTE | 2024-03-02 11:06 | PM.DS ---
DS: Providers Provider Date of Service: 03/03/24 Date of admission: 03/02/24 05:53 Primary care physician: Avis Aguilera PA-C DS: Diagnosis Discharge Diagnosis (1) Morbid obesity: Status: Acute (2) HTN (hypertension): Status: Acute (3) Hyperlipidemia: Status: Acute (4) DJD (degenerative joint disease): Status: Acute (5) Depression: Status: Acute (6) Anxiety: Status: Acute (7) Steatosis, liver: Status: Acute (8) Liver fibrosis: Status: Acute DS: Summary Hospital Course Hospital Course: ADMITTING DIAGNOSIS: morbid obesity, anxiety, depression, neto, htn, hld ? DISCHARGE DIAGNOSIS: same, s/p laparoscopic revision of gastric pouch with sleeve gastrectomy and repair diaphragmatic hernia ? PAST SURGICAL HISTORY: gastric bypass, tkr, appendectomy, carpal tunnel surgery, cesarian section ? PROCEDURE: upper endoscopy, laparoscopic revision of gastric pouch with sleeve gastrectomy and repair of diaphragmatic hernia hernia ? DISCHARGE SUMMARY: ? History of Present Illness: ? The patient is a?68 year-old woman with a BMI of?49.7 kg/m2 and associated co-morbidities as described above. The patient had extensive work-up,lost?39.3 lbs preoperatively and was electively scheduled for laparoscopic, possible open revision of gastric pouch with sleeve gastrectomy. Risks and complications of the surgery were discussed with the patient in advance, particularly the possibility of , pulmonary embolism, anastomotic leak, bleeding, bowel injury, GERD, cardiac, renal or pulmonary complications. The patient understood all the risks and was in agreement with the surgical plan. ? Hospital Course: ? The patient underwent an uneventful laparoscopic revision of gastric pouch with sleeve gastrectomy and repair of diaphragmatic hernia on the day of admission. Postoperatively, the patient was transferred to the surgical floor. The patient received IV Acetaminophen and IV dilaudid for pain control. Patient was started on bariatric phase 1 diet POD #0. On postoperative day one, the patient was feeling well without nausea, vomiting, fevers, or tachycardia. The patient had some mild incisional pain and the abdomen was soft. ? On the morning of postoperative day one, the patient was continued on 1 ounce of water or ice every half hour. During the day, the patient did fairly well, having some incisional pain, but able to ambulate adequately and to tolerate liquids well. ? Since the patient is doing well, we decided that the patient was ready to be discharged. The patient was given instructions to follow-up with me next week and to call my office for any fever over 101, persistent abdominal pain, nausea, vomiting, GERD, symptoms of DVT such as calf tenderness, or leg swelling, or pulmonary embolism such as chest pain or shortness of breath. The patient was also instructed to drink 40-60 ounces of liquids per day using the 1-ounce cups. The patient had been given prescriptions for Tylenol for pain, Zofran prn for nausea, and pantoprazole and carafate previously. The patient was encouraged to ambulate and use the incentive spirometer. The patient was allowed to shower, but no baths, and encouraged to stay active at home. All of these instructions were given to the patient personally. All questions were answered and the patient understood all instructions, the instructions were also given to the patient in print. Time Attestation Total time managing care of this patient today: 25 mintues. Discharge Coordination Time (in mins): 25 Quality: Safe Use of Opioids Does Pt have an Active Cancer Diagnosis on the Problem List?: No Quality: Stroke Does the patient have a stroke diagnosis?: No Physical Exam Vital Signs: Vital Signs: Last Vital Signs Temp 97.0 F 03/02/24 06:25 Pulse 75 03/02/24 06:25 Resp 16 03/02/24 06:25 BP 125/74 03/02/24 06:25 Pulse Ox 95 03/02/24 06:25 O2 Del Method Room Air 03/02/24 06:25 BMI result Body Mass Index 41.1 DS: Data Data Completed and Pending Pending studies at discharge: Pending at discharge 03/02/24 10:17 Surgical [PTH] Routine Discharge Plan Discharge Anticipated Discharge Date/Time: 03/03/24 10:00 Patient Disposition: Home, Self-Care Discharge Diagnosis: s/p laparoscopic revision of gastric pouch with sleeve gastrectomy Referrals: Avis Aguilera PA-C [Primary Care Provider] - 1 Week Discharge Medications: Continued tizanidine 2 mg tablet 1 - 4 mg PO BEDTIME PRN (Reason: muscle spasm) pantoprazole 40 mg tablet,delayed release (DR/EC) 40 mg PO DAILY Qty: 90 0RF sucralfate 100 mg/mL suspension 10 ml PO BID Qty: 600 2RF ondansetron 4 mg tablet,disintegrating 4 mg PO Q12H Qty: 20 0RF Rx Instructions: Only take one every 12 hours as needed if you have nausea duloxetine 60 mg capsule,delayed release(DR/EC) 120 mg PO DAILY atorvastatin 10 mg tablet 10 mg PO DAILY Held amlodipine-benazepril 10-40 mg capsule 1 cap PO DAILY Hold Instructions: Resume on 03/04/24. Check your blood pressure every morning as soon as you wake up and send it to Dr. Combs. Do no take the blood pressure medication if the blood pressure is below 120/70. Wait every day to hear back from Dr. Combs before you take the medication. Discontinued psyllium husk (with sugar) [Metamucil (with sugar)] 3 gram/7 gram Powder 1 ea PO DAILY polyethylene glycol 3350 17 gram/dose powder 17 g PO DAILY Qty: 238 0RF Rx Instructions: Mix each measuring cup with 8oz of water, Crystal light, or Gatorade zero, or Propel and do 7 measuring cups on 02/29/24 and another 7 measuring cups on 03/01/24 ferrous sulfate [FeroSul] 325 mg (65 mg iron) tablet 325 mg PO DAILY cholecalciferol (vitamin D3) 50 mcg (2,000 unit) tablet 50 mcg PO DAILY thiamine HCl (vitamin B1) 50 mg tablet 50 mg PO DAILY Qty: 30 4RF Discharge Orders: Discharge Order (Routine); Ordered 03/03/24 Ordered By: Lan Combs Activity on Discharge: No heavy lifting Stand Alone Forms: Patient Portal Discharge page Print Language: Bolivian Care Plan Goals: weight loss Health Concerns: morbid obesity Plan of Treatment: No tub baths, sex or returning to work until discussed at first post op appointment. No exercise, alcohol, tobacco or illegal drug use. Continue to use incentive spirometer hourly while awake. Walk in home for 5- 10 minutes every 2 hours during the first week. Follow all instructions in the bariatric handbook and call with any questions.Discharge Instructions 1. Please call your doctor or come back to the emergency room should any new symptoms arise. 2. You will receive a courtesy call from [facility] 24-48 hours after discharge. 3. Activity: abstain from alcohol, practice limited stair climbing, no bending, no driving, no exercise, no illicit substances, no lifting, no sex, no tub bath, no work. 4. Diet: continue as discussed with Dr. Combs. 5. Dressing Change/Wound Care: Your incision is covered by clear bandages and guaze underneath. If the area is tender, you may apply an ice pack for short intervals (no more than 20 minutes on, followed by at least 20 minutes off). Do not apply heat. Do not use creams, lotions, or topical antibiotics unless instructed to do so by your surgeon. These can cause infection or allergic reaction. 6. Call your doctor if: - Your temperature exceeds 101.5 F - You experience excessive pain or swelling - You have an unexpected reaction to medication - You have excessive bleeding - You experience continued vomiting/nausea - Your incision begins to separate - Your incision shows signs of infection such as increased redness, swelling, excessive pain, heat, or drainage (light blood or clear fluid is normal) 7. General instructions: No lifting greater than 5 lbs for 1 week and not more than 20lbs the next 3?weeks. No driving until seen at the office in 5-7 days after surgery. If you do not move your bowels in the next 2 days, please tell?Dr. Combs. Please walk around your home every hour or two to prevent blood clots from forming in your legs. You do not need to wake from sleeping to walk. Please sleep in a bed or couch to prevent kinking at the hips and knees. Please take your incentive spirometer (your lung rn medical surgical) home with you and use it for the next few days to prevent pneumonia. You may shower, no hot tubs, baths or swimming pools.?Please follow the post op diet instructions you are?given by Dr Combs? and text me daily at 5-6pm for an update.?If you have any issues or concerns or questions please communicate this to him via text.? The Celebrate shakes have all of the bariatric vitamins you need if you consume these shakes. If you are drinking other protein shakes, you will need to purchase the Celebrate multivitamins and calcium that are available in the hospital gift shop on the first floor of the main hospital.??Do not take anything without first discussing with Dr Combs. Please make sure you are consuming at least 40 ounces of fluids per day starting the?day AFTER your discharge from the hospital. Always drink 1-2 ml per minute using the 5ml?syringe. If you drink faster you may experience?bloating,?gas pain, burping, nausea or heartburn. In that case please slow down your pace and use the syringe to?understand better the?proper?pace and volume of drinking. Do not hesitate to contact the office with any questions at . The patient's medical history has been reviewed and they are considered low risk for post op DVT and therefore DVT prophylaxis is not considered necessary. Travel after surgery was reviewed. The patient has not disclosed any travel plans during the first 30 days after surgery and they have been advised that within the first 30 days after surgery any bus, plane, train or car travel over 2 hours in duration is contraindicated due to the possibility of developing blood clots from immobility. Any travel, needs to include periods of ambulation of 10 minutes in duration every 2 hours.? The patient was instructed to discuss any plans for travel during this period with their bariatric surgeon. Assessment: stable s/p laparoscopic revision of gastric pouch with sleeve gastrectomy Discharge Date/Time: 03/03/24 09:44
[2024-03-02 11:59] LABS: Hematocrit 47.6 % (37.0-47.0); Hemoglobin 15.7 g/dl (12.0-16.0)
[2024-03-02 12:10] LABS: Anion Gap 12 (12-20); Blood Urea Nitrogen 10 mg/dL (9-16); Calcium 9.8 mg/dL (8.4-10.2); Carbon Dioxide 23 mmol/L (22-29); Chloride 107 mmol/L (96-108); Creatinine Clr Calc Pharmacy 86.3; Estimated Glomerular Filt Rate > 60; Glucose Random 143 mg/dL (60-115); Potassium 4.1 mmol/L (3.3-5.1); Sodium 138 mmol/L (135-145)
--- NOTE | 2024-03-02 13:13 | PHA.MEDREC ---
Pharmacy Consult ? Medication Reconciliation Pharmacy has reviewed the medication reconciliation completed by nursing.
[2024-03-02] MEDS: ceFAZolin Sodium/Dextrose,Iso 2 GM/50 ML PIGGYBACK IV (13:53)
[2024-03-02] MEDS: Acetaminophen 1,000 MG/100 ML PIGGYBACK 16.7 MG IV ×2 (15:38→21:19)
[2024-03-02] MEDS: Famotidine/PF 20 MG/2 ML VIAL IVPUSH (19:37)
[2024-03-02] MEDS: 0.9 % Sodium Chloride Flush 3 ML SYRINGE IVFLUSH (19:37)
[2024-03-03] MEDS: Acetaminophen 1,000 MG/100 ML PIGGYBACK 16.7 MG IV (03:12)
[2024-03-03 03:41] VITALS: BP 139/68; PULSE 50; RESP 18; TEMP 36.4; O2SAT 95
[2024-03-03 06:33] LABS: MANUAL DIFF FLAG NO
[2024-03-03 06:42] LABS: Basophils Percent Auto 0.1 % (0-2); Hematocrit 42.9 % (37.0-47.0); Hemoglobin 14.1 g/dl (12.0-16.0); Imm Gran Abs Auto 0.04 X10*3/uL (0.00-0.03); Imm Gran Pct Auto 0.5 % (0.0-0.4); Lymphocytes Absolute Auto 1.2 X10*3/uL (1.2-4.9); Lymphocytes Percent Auto 15.9 % (20-40); Mean Corpuscular HGB Conc 32.9 g/dl (31.0-35.0); Mean Corpuscular Hemoglobin 29.5 pg (27.0-33.0); Mean Corpuscular Volume 89.7 fL (80.0-98.0); Monocytes Absolute Auto 0.6 X10*3/uL (0.1-1.2); Monocytes Percent Auto 8.5 % (2-11); Neutrophils Absolute Auto 5.5 x10*3/uL (2.0-8.3); Platelet Count 210 X10*3/uL (160-400); Red Blood Count 4.78 X10*6/uL (4.20-5.50); Red Cell Distribution Width 14.2 % (11.0-16.0); White Blood Count 7.3 X10*3/uL (4.8-10.8)
[2024-03-03 06:55] LABS: Anion Gap 12 (12-20); Blood Urea Nitrogen 12 mg/dL (9-16); Calcium 9.9 mg/dL (8.4-10.2); Carbon Dioxide 26 mmol/L (22-29); Chloride 105 mmol/L (96-108); Creatinine Clr Calc Pharmacy 89.6; Estimated Glomerular Filt Rate > 60; Glucose Random 101 mg/dL (60-115); Potassium 4.2 mmol/L (3.3-5.1); Sodium 139 mmol/L (135-145)
[2024-03-03 07:00] VITALS: BP 117/75; PULSE 59; RESP 17; TEMP 36.6; O2SAT 98
[2024-03-03] MEDS: Famotidine/PF 20 MG/2 ML VIAL IVPUSH (08:27)
[2024-03-03] MEDS: lisinopriL 40 MG TABLET PO (08:29)
[2024-03-03] MEDS: DULoxetine HCl 60 MG CAPSULE.DR 120 MG PO (08:29)
[2024-03-03] MEDS: amLODIPine Besylate 10 MG TABLET PO (08:29)
--- NOTE | 2024-03-03 08:55 | MHC.CM.PN ---
EMR REVIEWED, PT S/P LAP SLEEVE GASTRECTOMY, CM MET W/PT WHO REPORTS SHE LIVES W/HER , IS FULLY INDEP W/CARE, DENIES USE OF DME/SERVICES AND GOAL FOR DC IS HOME SELF CARE. PCP ON FILE VERIFIED, PT REPORTS PCP ON FILE AT [facility] AND CM WILL REQUEST COPY BE FAXED TO CM OFFICE. PT DISCHARGING HOME TODAY SELF CARE W/FOLLOW-UP NEXT FRIDAY W/[facility], PT'S FOR TRANSPORT
--- NOTE | 2024-03-03 10:15 | HO.POSTANES ---
Post Anesthesia Evaluation Post Anesthesia Evaluation Date of Service: 03/02/24 Vital Signs: Vital Signs Temp Pulse Resp BP Pulse Ox O2 Del Method 03/03/24 07:00 98 F 59 17 117/75 98 Room Air 03/03/24 03:41 97.5 F 50 18 139/68 95 CPAP 03/02/24 23:34 97.6 F 53 18 140/72 H 94 CPAP Anesthesia: General Mental Status: Awake Nausea/Vomiting: None Hydration: Adequate Anesthesia-Related Issues: No Anes. Related Issues
--- OUTSIDE RECORDS SUMMARY | 2024-03-04 07:57 | XMS_ITS | Continuity of Care Document ---
Author Organization [facility] Address [address] [place] [address]- Care Team Providers Care Pierogi Maker Name Role Phone Sadie DUMONT, Eris Huff Primary Care Physician Encounter [facility] Date(s): 04/25/20 - 05/25/20 [facility] Adult [address] [place] [address]- [facility] Allergies, Adverse Reactions, Alerts Substance Reaction Severity Status Other Environmental Allergy didn't disov le had to be removed surgically vicryl sutures Active Immunizations Given and Recorded Vaccine Date Status Refusal Reason tetanus-diphtheria toxoids (Td) 06/17/13 Given Not Given Vaccine Date Status Refusal Reason Influenza Virus Vaccine (oldterm) 10/01/19 Not Giv en Patient Refuses Influenza Virus Vaccine (oldterm) 07/27/19 Not Giv en Parent Or Guardian Refuses influenza virus vaccine, inactivated 06/21/14 Not Given Patient Refuses Medications atorvastatin 10 mg oral tablet 1 tablet = 10 mg, By Mouth, Daily, # 90 tablet, 1 Refills, Maintenance, 02/02/20 9:12:00 EDT, [id number], 167.64, cm, 12/28/19 11:56:00 EDT, Height, 135, kg, 12/28/19 11:56:00 EDT, Dry Weight Start Date: 02/02/20 Status: Ordered duloxetine 60 mg oral enteric coated capsule 2 capsule = 120 mg, By Mouth, Daily, # 180 capsule, 3 Refills, Maintenance, 04/26/20 8:35:00 EDT, EC Capsule, [id number], 167.64, cm, 12/28/19 11:56:00 EDT, Height, 135, kg, 12/27/2010:56:00 EDT, Dry Weight Start Date: 04/26/20 Status: Ordered ferrous sulfate 325 mg oral enteric coated tablet 325 mg, 1, tablet, By Mouth, Daily, # 30 tablet, Refills 0, Maintenance, 09/29/19 11:04:00 EST Start Date: 09/29/19 Status: Ordered Vitamin D3 = 2,000 International_Units, By Mouth, Daily, 0 Refills, Maintenance, 09/29/19 11:04:00 EST Start Date: 09/29/19 Status: Ordered Problem List Condition Effective Dates Status Health Status Inform ant Anemia(Confirmed) Active Hyperlipidemia - ASCVD risk 3.5% as of 11/04/16(Confirmed) Active Insomnia(Confirmed) Active Iron deficiency(Confirmed) Active Depression, major(Confirmed) Active Morbid obesity with BMI of 4 0.0-44.9, adult(Confirmed) Active OA - Osteoarthritis of knee - left(Confirmed) Active KESHIA - Obstructive sleep apnea(Confirmed) Active Restless leg(Confirmed) Active Social History Social History Type Response Smoking Status Former smoker; Start ed at age: 28; Stopped at age: 38; entered on: 07/25/14 Sex
--- OUTSIDE RECORDS SUMMARY | 2024-03-04 07:57 | XMS_ITS | Continuity of Care Document ---
Author Organization [facility] Philip lt Address [address] [place] [address]- Care Team Providers Care Multimedia Coordinator Name Role Phone Jorge Hendrix DO Primary Care Physician [phone] Encounter [facility] Date(s): 11/12/23 - 12/12/23 [facility] Adult [address] [place] [address]- Attending Physician: Nba Mera Admitting Physician: AdmNba meeks Referring Physician: AdmtrNba Allergies, Adverse Reactions, Alerts No Known Medication Allergies Substance Reaction Severity Status Other Environmental Allergy didn't disov le had to be removed surgically vicryl sutures Active Immunizations Given and Recorded Vaccine Date Status Refusal Reason SARS-CoV-2 (COVID-19) mRNA-1273 vaccine 07/20/21 R ecorded SARS-CoV-2 (COVID-19) mRNA-1273 vaccine 12/13/20 R ecorded SARS-CoV-2 (COVID-19) mRNA-1273 vaccine 11/15/20 R ecorded tetanus-diphtheria toxoids (Td) 06/17/13 Given Medications amlodipine-benazepril 10 mg-40 mg oral capsule 1 capsule, By Mouth, Daily, # 30 capsule, 6 Refills, Maintenance, 09/04/23 12:56:00 EST, Capsule, [facility], Partial fill upon patient request if the prescription is for a schedule II opioid drug., 1 capsule By Mouth Daily, 165.71,... Start Date: 09/04/23 Status: Ordered atorvastatin 10 mg oral tablet 1 tablet = 10 mg, By Mouth, Daily, # 90 tablet, 1 Refills, Maintenance, 12/11/23 11:30:00 EDT, [facility], Partial fill upon patient request if the prescription is for a schedule II opioid drug., 165, cm, 12/11/23 11:19:00 EDT, [facility]... Start Date: 12/11/23 Status: Ordered calcium carbonate 600 mg oral tablet 2 tablet = 1,200 mg, By Mouth, Daily, 0 Refills, Maintenance, 11/20/23 10:47:00 EDT, Partial fill upon patient request if the prescription is for a schedule II opioid drug. Start Date: 11/20/23 Status: Ordered duloxetine 60 mg oral enteric coated capsule 2 capsule, By Mouth, Daily, # 60 capsule, 4 Refills, Maintenance, 09/04/23 12:55:00 EST, [facility], 165.71, cm, 08/06/23 16:26:00 EST, Height Start Date: 09/04/23 Status: Ordered ferrous sulfate 325 mg oral enteric coated tablet 325 mg, 1, tablet, By Mouth, Daily, # 30 tablet, Refills 0, Maintenance, 09/29/19 11:04:00 EST Start Date: 09/29/19 Status: Ordered Macrobid macrocrystals-monohydrate 100 mg oral capsule 1 capsule = 100 mg, By Mouth, 2 times a day, for 5 days, # 10 capsule, 0 Refills, Acute 12/17/23 12:35:00 EDT, 12/12/23 12:35:00 EDT, Capsule, [id number], 165, cm, 12/11/23 11:19:00 EDT, Height, 130, kg, 09/25/23 22:31:00 EST, Dry Weight Start Date: 12/12/23 Stop Date: 12/17/23 Status: Ordered ProAir HFA 90 mcg/inh inhalation aerosol with adapter 2, puffs, Inhalation, Every 6 hours, PRN, # 8.5 Gm, Refills 0, Tot. Refills 0, Maintenance, 11/12/23 15:22:00 EST, Aerosol, Route to Pharmacy Electronically, NCPDP_[id number], [facility][id number], 165, cm, 11/12/23 15:21:00 EST, Height, 130, k... Start Date: 11/12/23 Status: Ordered Vit B Complex Tablet 0 Refills, Maintenance, 11/20/23 10:47:00 EDT, Partial fill upon patient request if the prescription is for a schedule II opioid drug. Start Date: 11/20/23 Status: Ordered Vitamin D3 = 2,000 International_Units, By Mouth, Daily, 0 Refills, Maintenance, 09/29/19 11:04:00 EST Start Date: 09/29/19 Status: Ordered Problem List Condition Confirmation Course Effective Dates Status H ealth Status Informant Anemia Confirmed Active Cough Confirmed Active Essential hypertension Confirmed Active Hyperlipidemia - ASCVD risk 3.5% as of 11/04/16 Confirmed Active Insomnia Confirmed Active Iron deficiency Confirmed Active Major depression in partial remission Confirmed Active Depression, major Confirmed Active Mixed hyperlipidemia Confirmed Active OA - Osteoarthritis of knee - left Confirmed Active KESHIA - Obstructive sleep apnea Confirmed Active Osteopenia Confirmed Active Left shoulder pain Confirmed Active Mental status change resolved Confirmed Active Restless leg Confirmed Active Severe obesity Confirmed Active Sore throat Confirmed Active Strep pharyngitis Confirmed Active Vision loss of right eye Confirmed Active Procedures Procedure Date Related Diagnosis Body Site Status Colonoscopy - Due 202307/11/14 Co mpleted colonscopy 2010 Completed lap banding procedure Com pleted sleep study 2009 nasal CPAP at 6 cm H2O Completed Social History Social History Type Response Smoking Status Former smoker; Start ed at age: 28; Stopped at age: 38; entered on: 07/25/14 Sex Radiology * Event Display: Ultrasound Abdomen, Non- Authored Date: * Event Display: IR Special Procedures, Non- Authored Date: * Event Display: X-Ray Chest, Non- Authored Date: * Event Display: MRI Ankle/Foot, Non- Authored Date: * Event Display: Radiology Result Scanned Authored Date: * Sona Aquino: PERFORM Event Display: Radiology Results Scanned Authored Date: * Razia Hernandez: PERFORM Event Display: Radiology Results Scanned Authored Date: [id number] Patient Care team information Care Team Personnel Name: Jorge Hendrix DO Position: S Physician - Primary Care Member Role: PCP Address: Address: [address] [place], [place] [address] [address]- Care Team Related Persons Name: BOB TRACY Address: home [address] [place] [address] [place] Name: FITO CRNAE Address: home [address] [place] [address]
--- OUTSIDE RECORDS SUMMARY | 2024-03-04 07:57 | XMS_ITS | Continuity of Care Document ---
Author Organization [facility] Philip lt Address [address] [place] [address]- Care Team Providers Care Well Control Instructor Name Role Phone Sadie DUMONT, Eris Huff Primary Care Physician Encounter [facility] Date(s): 08/06/21 - 09/05/21 [facility] Adult [address] [place] [address]- Allergies, Adverse Reactions, Alerts Substance Reaction Severity [...] Medications atorvastatin 10 mg oral tablet 1 tablet, By Mouth, Daily, # 90 tablet, 3 Refills, Maintenance, 04/18/21 17:16:00 EDT, [id number], 167.64, cm, 12/28/19 11:56:00 EDT, Height, 135, kg, 12/28/19 11:56:00 EDT, Dry Weight Start Date: 04/18/21 Status: Ordered duloxetine 60 mg oral enteric coated capsule 2 capsule, By Mouth, Daily, # 180 capsule, 3 Refills, Maintenance, 04/18/21 17:16:00 EDT, [facility] #[id number], 167.64, cm, 12/28/19 11:56:00 EDT, Height, 135, kg, 12/28/19 11:56:00 EDT, Dry Weight Start Date: 04/18/21 Status: Ordered ferrous sulfate 325 mg oral [...]
--- OUTSIDE RECORDS SUMMARY | 2024-03-04 07:57 | XMS_ITS | Continuity of Care Document ---
Author Organization [facility] Philip lt Address [address] [place] [address]- Care Team Providers Care Maintenance And Operations Supervisor Name Role Phone Willie PEÑALOZA, Nupur Primary Care Physician [place] [facility] 11/23/21 - 12/23/21 [facility] [place] Adult [address] [place] [address]- Allergies, Adverse Reactions, Alerts Substance Reaction Severity [...] tablet, 3 Refills, Maintenance, 04/18/21 17:16:00 EDT, [facility] #[id number], 167.64, cm, 12/28/19 11:56:00 EDT, Height, 135, kg, 12/28/19 11:56:00 EDT, Dry Weight Start Date: 04/18/21 Status: Ordered duloxetine 60 mg oral enteric coated capsule 2 capsule, By Mouth, Daily, # 180 capsule, 3 Refills, Maintenance, 04/18/21 17:16:00 EDT, [facility] #[id number], 167.64, cm, 12/28/19 11:56:00 EDT, Height, 135, [...]
--- OUTSIDE RECORDS SUMMARY | 2024-03-04 07:57 | XMS_ITS | Continuity of Care Document ---
Author Organization [facility] Philip lt Address [address] [place] [address]- Care Team Providers Care Sales Agent Casualty Insurance Name Role Phone Eris Noel MD Primary Care Physician Encounter [facility] Date(s): 05/18/21 - 09/07/21 [facility] Adult [address] [place] [address]- Attending Physician: Eris Noel MD Allergies, Adverse Reactions, Alerts Substance Reaction Severity [...] tablet, 3 Refills, Maintenance, 04/18/21 17:16:00 EDT, [facility] #[id number], 167.64, cm, 12/28/19 11:56:00 EDT, Height, 135, kg, 12/28/19 11:56:00 EDT, Dry Weight Start Date: 04/18/21 Status: Ordered duloxetine 60 mg oral enteric coated capsule 2 capsule, By Mouth, Daily, # 180 capsule, 3 Refills, Maintenance, 04/18/21 17:16:00 EDT, [facility] #[id number], 167.64, cm, 12/28/19 11:56:00 EDT, Height, 135, [...]
--- OUTSIDE RECORDS SUMMARY | 2024-03-04 07:57 | XMS_ITS | Continuity of Care Document ---
Author Organization [facility] Address [address] [place] [address]- Care Team Providers Care Logging Superintendent Name Role Phone Jorge Hendrix DO Primary Care Physician Encounter [id number] Date(s): 11/20/23 - 11/27/23 [facility] [address] [place] [address]- Encounter Diagnosis Left supraspinatus tendinitis(Discharge Diagnosis) - 11/20/23 Tendinitis of left infraspinatus tendon(Discharge Diagnosis) - 11/20/23 Adhesive capsulitis of left shoulder(Discharge Diagnosis) - 11/20/23 Attending Physician: Edmund Isaacs MD Referring Physician: Jorge Hendrix DO Allergies, Adverse Reactions, Alerts No Known Medication [...] = 10 mg, By Mouth, Daily, # 30 tablet, 4 Refills, Maintenance, 09/04/23 12:56:00 EST, [facility], Partial fill upon patient request if the prescription is for a schedule II opioid drug., 165.71, cm, 08/06/23 16:26:00 EST, H... Start Date: 09/04/23 Status: Ordered calcium carbonate 600 mg oral [...] 11:04:00 EST Start Date: 09/29/19 Status: Ordered ProAir HFA 90 mcg/inh inhalation aerosol with adapter 2, puffs, Inhalation, Every 6 hours, PRN, # 8.5 Gm, Refills 0, Tot. Refills 0, Maintenance, 11/12/23 15:22:00 EST, Aerosol, Route to Pharmacy Electronically, NCPDP_[id number], [facility] #[id number], 165, cm, 11/12/23 15:21:00 EST, Height, 130, [...] Vision loss of right eye Confirmed Active Diagnosis Diagnosis Type Effective Dates Health Status Clinical Service Informant Left supraspinatus tendinitis Discharge Diagnosis 11/20/23 Tendinitis of left infraspinatus tendon Discharge Diagnosis 11/20/23 Adhesive capsulitis of left shoulder Discharge Diagnosis 11/20/23 Vital Signs Most recent to oldest [Reference Range]: 1 Height 165 cm (11/20/23 10:48 AM) Weight 123.7 kg (11/20/23 10:48 AM) Oxygen Saturation [94-100 %] 97 % (11/20/23 10:48 AM) Pulse Rate [55-90 bpm] 79 bpm (11/20/23 10:48 AM) Body Mass Index [18.5-24.99 kg/m2] 45.44 kg/m2 *>HHI* (11/20/23 10:48 AM) Blood Pressure [90-138/55-84 mm Hg] 108/ 80mm Hg (11/20/23 10:48 AM) Mode of Delivery (Oxygen) Room air (11/20/23 10:48 AM) Blood pressure sites Arm, right (11/20/23 10:48 AM) Weight Obtained Via Bed scale (11/20/23 10:48 AM) Social History Social History Type Response Smoking Status Former smoker; Start ed at age: 28; Stopped at age: 38; entered on: 07/25/14 Sex Patient Care team information Care Team Personnel Name: Jorge Hendrix DO Position: S Physician - Primary Care Member Role: PCP Address: Address: [address] [place] [address]- Care Team Related Persons Name: BOB TRACY Address: home [address] [place] [id number] Name: FITO CRANE Address: home [address] [place] [address] ANNETTA BUI [address]
--- OUTSIDE RECORDS SUMMARY | 2024-03-04 07:57 | XMS_ITS | Continuity of Care Document ---
Author Organization [facility] Philip lt Address [address] [place] [address]- Care Team Providers Care Advisor Advocate Angel Co Founder Name Role Phone Jorge Hendrix DO Primary Care Physician Encounter [facility] Date(s): 09/29/23 - 10/29/23 [facility] Adult [address] [place] [address]- Allergies, Adverse Reactions, Alerts No Known Medication [...] EST, H... Start Date: 09/04/23 Status: Ordered duloxetine 60 mg oral enteric [...] H ealth Status Informant Anemia Confirmed Active Essential hypertension Confirmed Active Hyperlipidemia - ASCVD risk 3.5% as of 11/04/16 Confirmed Active Insomnia Confirmed Active Iron deficiency Confirmed Active Major depression in partial remission Confirmed Active Depression, major Confirmed Active Mixed hyperlipidemia Confirmed Active OA - Osteoarthritis of knee - left Confirmed Active KESHIA - Obstructive sleep apnea Confirmed Active Osteopenia Confirmed Active Mental status change resolved Confirmed Active Restless leg Confirmed Active Severe obesity Confirmed Active Vision loss of right eye Confirmed Active Social History Social History Type Response Smoking Status Former smoker; Start ed at age: 28; Stopped at age: 38; entered on: 07/25/14 Sex Patient Care team information Care Team Personnel Name: Jorge Hendrix DO Position: [facility] Physician - Primary Care Member Role: PCP Address: Address: [address] [place] [address]- Care Team Related Persons Name: BOB TRACY Address: [address] [place] [address] Name: FITO CRANE Address: [address] [place] [address]
--- OUTSIDE RECORDS SUMMARY | 2024-03-04 07:57 | XMS_ITS | Continuity of Care Document ---
Author Organization [facility] Philip lt Address [address] [place] [address]- Care Team Providers Care Chemist Steroids Name Role Phone Avis Smith Primary Care Physi lui Encounter [facility] Date(s): 07/26/22 - 08/02/22 [facility] Adult [address] [place] [address]- Encounter Diagnosis Anemia(Discharge Diagnosis) - 07/26/22 Depression, major(Discharge Diagnosis) - 07/26/22 Hyperlipidemia - ASCVD risk 3.5% as of 11/04/16(Discharge Diagnosis) - 07/26/22 Morbid obesity with BMI of 40.0-44.9, adult(Discharge Diagnosis) - 07/26/22 OA - Osteoarthritis of knee - left(Discharge Diagnosis) - 07/26/22 Attending Physician: Avis Smith Allergies, Adverse Reactions, Alerts Substance Reaction Severity Status Other Environmental Allergy didn't disov le had to be removed surgically vicryl sutures Active Immunizations Given and Recorded Vaccine Date Status Refusal Reason SARS-CoV-2 (COVID-19) mRNA-1273 vaccine 07/20/21 R ecorded SARS-CoV-2 (COVID-19) mRNA-1273 vaccine 12/13/20 R ecorded SARS-CoV-2 (COVID-19) mRNA-1273 vaccine 11/15/20 R ecorded tetanus-diphtheria toxoids (Td) 06/17/13 Given Not Given Vaccine Date Status Refusal Reason Influenza Virus Vaccine (oldterm) 10/01/19 Not Giv en Patient Refuses Influenza Virus Vaccine (oldterm) 07/27/19 Not Giv en Parent Or Guardian Refuses influenza virus vaccine, inactivated 06/21/14 Not Given Patient Refuses Medications atorvastatin 10 mg oral tablet 1 tablet = 10 mg, By Mouth, Daily, # 90 tablet, 0 Refills, Maintenance, 04/12/22 17:35:00 EDT, [facility] #[id number], Partial fill upon patient request if the prescription is for a schedule II opioid drug., 167.64, cm, 04/11/22 13:47:00 EDT, Height Start Date: 04/12/22 Status: Ordered duloxetine 60 mg oral enteric coated capsule 2 capsule, By Mouth, Daily, # 180 capsule, 3 Refills, Maintenance, 07/03/22 13:13:00 EDT, [facility] #[id number], 167.64, cm, 07/03/22 12:40:00 EDT, Height Start Date: 07/03/22 Status: Ordered ferrous sulfate 325 mg oral [...] H ealth Status Informant Anemia Confirmed Active Hyperlipidemia - ASCVD risk 3.5% as of 11/04/16 Confirmed Active Insomnia Confirmed Active Iron deficiency Confirmed Active Depression, major Confirmed Active Morbid obesity with BMI of 40.0-44.9, adult Confirmed Active OA - Osteoarthritis of knee - left Confirmed Active KESHIA - Obstructive sleep apnea Confirmed Active Restless leg Confirmed Active Severe obesity Confirmed Active Diagnosis Diagnosis Type Effective Dates Health Status Clinical Service Informant Anemia Discharge Diagnosis 07/26/22 Depression, major Discharge Diagnosis 07/26/22 Hyperlipidemia - ASCVD risk 3.5% as of 11/04/16 Discharge Diagnosis 07/26/22 Morbid obesity with BMI of 40.0-44.9, adult Discharge Diagnosis 07/26/22 OA - Osteoarthritis of knee - left Discharge Diagnosis 07/26/22 Vital Signs Most recent to oldest [Reference Range]: 1 2 Height 167.64 cm (07/26/22 10:53 AM) 167.64 cm (07/26/22 10:39 AM) Weight 135.9 kg (07/26/22 10:39 AM) Oxygen Saturation [94-100 %] 97 % (07/26/22 10:39 AM) Pulse Rate [55-90 bpm] 75 bpm (07/26/22 10:39 AM) Body Mass Index [18.5-24.99 kg/m2] 48.36 kg/m2 *>HHI* (07/26/22 10:39 AM) Blood Pressure [90-138/55-84 mm Hg] 167/ 99mm Hg *H* (07/26/22 10:53 AM) 169/95mm Hg *H* (07/26/22 10:39 AM) Temperature [96.8-100.4 DegF] 96.3 DegF *L* (07/26/22 10:39 AM) Mode of Delivery (Oxygen) Room air (07/26/22 10:39 AM) Blood pressure sites Arm, right (07/26/22 10:53 AM) Arm, right (07/26/22 10:39 AM) Temperature Route Temporal (07/26/22 10:39 AM) Weight Obtained Via Standing scale (07/26/22 10:39 AM) Social History Social History Type Response Smoking Status Former smoker; Start ed at age: 28; Stopped at age: 38; entered on: 07/25/14 Sex Note * Raquel Walker: PERFORM, SIGN, VERIFY Event Display: Patient Education/Instruction Authored Date: [id number] [facility] *BMP So [facility] Clinical Summary Name JUAN JOSE TRACY Age 66 Years 1955 PCP Avis Smith PCP Visit Date 07/26/2022 10:37:00 Additional Instructions: Scheduled Appointments?? Future Appointments ?No Future Appointments Scheduled Follow-Up Instructions ?? Diagnosis Medications: Please continue your medications until treatment is completed or stopped by your provider. Discuss any questions related to medications with your provider. Medications to Continue Taking That Have Changed These medications were not printed or sent to your pharmacy - Atorvastatin (atorvastatin 10 mg oral tablet) 1 tab(s) Oral Daily. Refills: 0. Next Dose: Medications to Continue with No Changes These medications were not printed or sent to your pharmacy Cholecalciferol (Vitamin D3) 2,000 International Unit Oral Daily. Next Dose: Duloxetine (duloxetine 60 mg oral enteric coated capsule) 2 capsule Oral Daily. Refills: 3. Next Dose: Ferrous Sulfate (ferrous sulfate 325 mg oral enteric coated tablet) 1 tab(s) Oral Daily. Next Dose: Allergy Info:?? Other Environmental Allergy Medications Given This Visit Future Orders ?CBC? Order Date:09/24/22?- Complete on or after?09/24/22 ?Comprehensive Metabolic Panel? Order Date:09/24/22?- Complete on or after?09/24/22 ?Hemoglobin A1C (Monitoring)? Order Date:09/24/22?- Complete on or after?09/24/22 ?Lipid Panel? Order Date:09/24/22?- Complete on or after?09/24/22 Vital Signs Height 167.64 cm Weight 135.9 kg BMI 48.36 kg/m2 Blood Pressure 167 mm Hg/99 mm Hg Temperature 96.3 DegF Pulse Rate 75 bpm Respiratory Rate 02 Sat Mode of Delivery 97 %/Room air You can now view a summary of your hospital visit from the comfort of your home through a free online portal called [employer]. [employer] is a website that allows you to securely view your medical information including discharge summary, medications and follow-up visits. ??You can alsosend a secure electronic message to your doctor???s office to request appointments, renew medications or just ask a question. You can enroll at [email or web address] or register during your next office visit. Disclaimer:?? The information provided is of a general nature and is intended to be used in conjunction with the recommendations and advice of your health care practitioner. ??Every effort has been made to ensure that the information provided is accurate and complete at the time it is provided to you however, as your needs change, or, as new ??information becomes available, different or additional instructions may be required. If you have questions, please consult with your primary care provider or pharmacist, as appropriate. ??This information is not intended to serve as substitution for assessment and evaluation by a qualified health care provider. If you do not have a primary care provider, you may find a [facility] provider by calling [facility] at [phone]. For information about the plan of care including goals and instructions for your diagnosis, please see the patient education orders section of this document. Patient Education Materials?? The content of this educational material or handout may have been modified, supplemented, or adapted from its original content and format to support your individualized medical care. Patient Care team information Care Team Personnel Name: Avis Smith Position: S PCO Associate Professional Member Role: PCP Address: Address: [address] [place] [address]- Care Team Related Persons Name: BOB TRACY Address: home [address] [place] [address] [place] Name: FITO CRANE Address: [address] [place] [address]
--- OUTSIDE RECORDS SUMMARY | 2024-03-04 07:57 | XMS_ITS | Continuity of Care Document ---
Author Organization [facility] ter Address [address] [place] [address]- Care Team Providers Care Senior Director Finance Name Role Phone Eris Noel MD Primary Care Physician [place] [facility] 12/28/[place] - 12/28/[address] [address]- [facility] Discharge Disposition: A-D/C Home Attending Physician: Kunal Casey MD Admitting Physician: Kunal Casey MD Referring Physician: Kunal Casey MD Allergies, Adverse Reactions, Alerts Substance Reaction [...] Daily, # 90 tablet, 1 Refills, Maintenance, 08/13/19 10:08:43 EST, 163.5, cm, 07/27/19 11:09:38 EST, Height, 125, kg, 05/01/18 10:26:49 EDT, Dry Weight Start Date: 08/13/19 Status: Ordered duloxetine 60 mg oral enteric coated capsule 2 capsule = 120 mg, By Mouth, Daily, # 180 capsule, 1 Refills, Maintenance, 07/13/19 8:33:06 EST, [facility] Capsule Start Date: 07/13/19 Status: Ordered ferrous sulfate 325 mg oral [...] Obstructive sleep apnea(Confirmed) Active Restless leg(Confirmed) Active Vital Signs Most recent to oldest [Reference Range]: 1 2 3 Height 167.64 cm (12/28/19 11:56 AM) 167.64 cm (12/23/19 1:05 PM) Weight 135 kg (12/28/19 11:56 AM) Oxygen Saturation [94-100 %] 100 % (12/28/19 12:57 PM) 94 % (12/28/19 12:10 PM) 97 % (12/28/19 11:56 AM) Pulse Rate [55-90 bpm] 100 bpm *H* (12/28/19 11:56 AM) Body Mass Index [18.5-24.99] 48.04 *>HHI* (12/28/19 11:56 AM) Blood Pressure [90-138/55-84 mm Hg] 152/93mm Hg *H* (12/28/19 12:57 PM) 171/94mm Hg *H* (12/28/19 12:10 PM) 157/109mm Hg *H* (12/28/19 11:56 AM) Respiratory Rate [16-30 br/min] 22 br/min (12/28/19 12:57 PM) 9 br/min *L* (12/28/19 12:10 PM) 21 br/min (12/28/19 11:56 AM) Temperature [96.8-100.4 DegF] 97.2 DegF (12/28/19 12:57 PM) 96.8 DegF (12/28/19 11:56 AM) Liters per Minute 3 L/min (12/28/19 12:10 PM) Mode of Delivery (Oxygen) Room air (12/28/19 1:49 PM) Room air (12/28/19 12:57 PM) Nasal cannula (12/28/19 12:10 PM) Blood pressure sites Arm, left (12/28/19 12:57 PM) Arm, left (12/28/19 11:56 AM) Temperature Route Temporal (12/28/19 12:57 PM) Temporal (12/28/19 11:56 AM) Dry Weight 135 kg (12/28/19 11:56 AM) 134.09 kg (12/23/19 1:05 PM) Weight Obtained Via Standing scale (12/28/19 11:56 AM) Dry Weight Obtained Via Standing scale (12/28/19 11:56 AM) Patient/family stated (12/23/19 1:05 PM) Social History Social History Type Response Smoking Status Former smoker; Start ed at age: 28; Stopped at age: 38; entered on: 07/25/14 Sex
--- OUTSIDE RECORDS SUMMARY | 2024-03-04 07:57 | XMS_ITS | Continuity of Care Document ---
Author Organization [facility] Philip lt Address [address] [place] [address]- Care Team Providers Care Marketing Proposal Coordinator Name Role Phone Willie PEÑALOZA, Nupur Primary Care Physician [place] [facility] [place]21 - 12/26/21 [facility] Adult [address] [place] [address]- Attending Physician: Nba Mera Admitting Physician: AdmNba meeks Referring Physician: AdmtrNba Allergies, Adverse Reactions, Alerts Substance Reaction Severity [...] tablet, 3 Refills, Maintenance, 04/18/21 17:16:00 EDT, [facility] #[id number], 167.64, cm, 12/28/19 11:56:00 EDT, Height, 135, kg, 12/28/19 11:56:00 EDT, Dry Weight Start Date: 04/18/21 Status: Ordered duloxetine 60 mg oral enteric coated capsule 2 capsule, By Mouth, Daily, # 180 capsule, 3 Refills, Maintenance, 04/18/21 17:16:00 EDT, [facility] #[id number], 167.64, cm, 12/28/19 11:56:00 EDT, Height, 135, kg, 12/28/19 11:56:00 EDT, Dry Weight Start Date: 04/18/21 Status: Ordered ferrous sulfate 325 mg oral enteric coated tablet 325 mg, 1, tablet, By Mouth, Daily, # 30 tablet, Refills 0, Maintenance, 09/29/19 11:04:00 EST Start Date: 09/29/19 Status: Ordered nitrofurantoin macrocrystals 100 mg oral capsule 1 capsule = 100 mg, By Mouth, 2 times a day, for 5 days, # 10 capsule, 0 Refills, Acute 12/31/21 17:16:00 EDT, 12/26/21 17:16:00 EDT, Capsule, [facility] #[id number], Partial fill upon patient request if the prescription is for a schedule II opio... Start Date: 12/26/21 Stop Date: 12/31/21 Status: Ordered Vitamin D3 = 2,000 International_Units, [...] Obstructive sleep apnea(Confirmed) Active Restless leg(Confirmed) Active Procedures Procedure Date Related Diagnosis Body Site Status Colonoscopy - Due 202307/11/14 Co mpleted colonscopy 2010 due 2020 Completed lap banding procedure Com pleted sleep study 2009 nasal CPAP at 6 cm H2O Completed Social History Social History Type Response Smoking Status Former smoker; Start ed at age: 28; Stopped at age: 38; entered on: 07/25/14 Sex
--- OUTSIDE RECORDS SUMMARY | 2024-03-04 07:57 | XMS_ITS | Continuity of Care Document ---
Author Organization [facility] Address [address] [place] [address]- Care Team Providers Care Advertising Photographer Name Role Phone Jorge Hendrix DO Primary Care Physician [place] [facility] [place](s): 01/28/24 - 02/27/[address] [address] Attending Physician: Nba Mera Admitting Physician: Nba Mera Referring Physician: AdmtrNba Allergies, Adverse Reactions, Alerts [...] ecorded tetanus-diphtheria toxoids (Td) 06/17/13 Given Medications Albuterol (Eqv-ProAir HFA) 90 mcg/inh inhalation aerosol 2 puffs, Inhalation, Every 6 hours, PRN NEEDED FOR WHEEZING OR SHORTNESS OF BREATH, # 8.5 Gm, 0 Refills, Maintenance, 01/05/24 16:43:00 EDT, [facility] #[id number], 25, INHALE 2 PUFFS BY MOUTH EVERY 6 HOURS NEEDED FOR WHEEZING OR SHORTNESS... Start Date: 01/05/24 Status: Ordered amlodipine-benazepril 10 mg-40 mg oral capsule 1 [...] 11:04:00 EST Start Date: 09/29/19 Status: Ordered tiZANidine 2 mg oral tablet 0.5-2 tablet, By Mouth, Daily at bedtime, PRN, # 20 tablet, Refills 1, Tot. Refills 1, Maintenance,muscle pain/spasm, 02/12/24 11:15:00 EDT, Route to Pharmacy Electronically, [facility] #[id number], Partial fill upon patient request if the presc... Start Date: 02/12/24 Status: Ordered Vit B Complex Tablet 0 [...] Team Personnel Name: Jorge Hendrix DO Position: [facility] Physician - Primary Care Member Role: PCP Address: Address: [address] [place] [address] [place] [address]- Care Team Related Persons Name: BOB TRACY Address: home [address] [place] [address] [place] Name: FITO CRANE Address: home [address] [place] [address]
--- OUTSIDE RECORDS SUMMARY | 2024-03-04 07:57 | XMS_ITS | Continuity of Care Document ---
Author Organization [facility] Address [address] [facility], [address] [place] [address]- Care Team Providers Care Regional Vice President Surgical Sales Name Role Phone Avis Smith Primary Care Physi lui Encounter 09/11/23 - 09/18/23 [facility] [address], [address] [place] [address]- Attending Physician: Avis Smith Admitting Physician: Avis Smith Referring Physician: Avis Smith Allergies, Adverse Reactions, Alerts [...] deficiency Confirmed Active Depression, major Confirmed Active OA - Osteoarthritis of knee - left Confirmed Active KESHIA - Obstructive sleep apnea Confirmed Active Restless leg Confirmed Active Severe obesity Confirmed Active 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 Family history breast cancer in a sister atage 51. COMPARISON: Digital mammograms of 2010 through 2018. TECHNIQUE: Full field digital CC and MLO 3D tomosynthesis images of both breasts were acquired. Computer -aided detection (CAD) was utilized in the interpretation of this study. Two CC views of each breast required for better evaluation. DENSITY: The breast tissue is almost entirely fatty. FINDINGS: Normal LEFT axillary lymph nodes noted. Small numbers of scattered, benign appearing microcalcifications are noted bilaterally. No masses, suspicious groups of microcalcifications, areas of architectural distortion, skin thickening or nipple retraction are seen in either breast. IMPRESSION: 1. No mammographic evidence of malignancy. RECOMMENDATION: Annual mammographic screening BI-RADS 2 - Benign. Lay letter mailed to patient. WSN: [id number] Ordering Physician: Avis Aguilera Dictated By: Jorge Mac MD Dictated Date/Time: 09/11/23 1:07 pm Reviewed By: Jorge Mac MD Signed By: Jorge Mac MD Signed Date/Time: 09/11/23 1:07 pm Transcribed By: AZUL Drywall Finishing Foreman Date/Time: 09/11/23 1:03 pm Birads: Social History Social History Type Response Smoking Status Former smoker; Start ed at age: 28; Stopped at age: 38; entered on: 07/25/14 Sex Patient Care team information Care Team Personnel Name: Avis Smith Position: S PCO Associate Professional Member Role: PCP Address: Address: [address] [place] [address]- Care Team Related Persons Name: BOB TRACY Address: [address] [place] [address] Name: FITO CRANE Address: home [address] [place] [address]
--- OUTSIDE RECORDS SUMMARY | 2024-03-04 07:57 | XMS_ITS | Continuity of Care Document ---
Author Organization [facility] Philip lt Address [address] [place] [address]- Care Team Providers Care Home Appliances Mechanic Name Role Phone Willie PEÑALOZA, Nupur Primary Care Physician [place] [facility] [place] [place]23[place]21 - 11/22/21 [facility] Adult [address] [place] [address]- Allergies, Adverse Reactions, Alerts Substance Reaction Severity [...] tablet, 3 Refills, Maintenance, 04/18/21 17:16:00 EDT, [facility] #[id number], 167.64, cm, 12/28/19 11:56:00 EDT, Height, 135, kg, 12/28/19 11:56:00 EDT, Dry Weight Start Date: 04/18/21 Status: Ordered duloxetine 60 mg oral enteric coated capsule 2 capsule, By Mouth, Daily, # 180 capsule, 3 Refills, Maintenance, 04/18/21 17:16:00 EDT, [facility] #[id number], 167.64, cm, 12/28/19 11:56:00 EDT, Height, 135, [...]
--- OUTSIDE RECORDS SUMMARY | 2024-03-04 07:57 | XMS_ITS | Continuity of Care Document ---
Author Organization [facility] Philip Address [address] [place] [address]- Care Team Providers Care Fishing Captain Name Role Phone Eris Noel MD Primary Care Physician [place] [facility] [place]13[place]19 - 11/07/19 [facility] Adult [address] [place] [address]- [facility] Attending Physician: Eris Noel MD Allergies, Adverse [...] Start Date: 09/29/19 Status: Ordered Vitamin D3 By Mouth, Daily, 0 Refills, Maintenance, 09/29/19 [...]
--- OUTSIDE RECORDS SUMMARY | 2024-03-04 07:57 | XMS_ITS | Continuity of Care Document ---
Author Organization [facility] Philip Address [address] [place] [address]- Care Team Providers Care Emergency Medicine Physician Name Role Phone Avis Smith Primary Care Physi lui Encounter [facility] [place] Date(s): 06/26/22 - 07/26/22 [facility] Adult [address] [place] [address]- Allergies, Adverse Reactions, Alerts Substance Reaction Severity [...] tablet, 0 Refills, Maintenance, 04/12/22 17:35:00 EDT, [facility] #[id number], Partial fill upon patient request if the prescription is for a schedule II opioid drug., 167.64, cm, 04/11/22 13:47:00 EDT, Height Start Date: 04/12/22 Status: Ordered duloxetine 60 mg oral enteric coated capsule 2 capsule, By Mouth, Daily, # 180 capsule, 3 Refills, Maintenance, 07/03/22 13:13:00 EDT, [facility] #[id number], 167.64, cm, 07/03/22 12:40:00 EDT, Height Start [...] leg Confirmed Active Severe obesity Confirmed Active Social History Social History Type Response Smoking Status Former smoker; Start ed at age: 28; Stopped at age: 38; entered on: 07/25/14 Sex Patient Care team information Care Team Personnel Name: Avis Smith Position: S PCO Associate Professional Member Role: PCP Address: Address: [address] [facility] [place] [address]- Care Team Related Persons Name: BOB TRACY Address: [address] [place] [address] Name: FITO CRANE Address: [address] [place] [address]
--- OUTSIDE RECORDS SUMMARY | 2024-03-04 07:58 | XMS_ITS | Continuity of Care Document ---
Author Organization [facility] Philip lt Address [address] [place] [address]- Care Team Providers Care Education Paraprofessional Name Role Phone Avis Smith Primary Care Physi lui Encounter [facility] [place] Date(s): 08/06/23 - 08/13/23 [facility] Adult [address] [place] [address]- Encounter Diagnosis Acute bronchitis(Discharge Diagnosis) - 08/06/23 Attending Physician: Nupur Manzanares Allergies, Adverse Reactions, Alerts Substance Reaction Severity [...] capsule 1 capsule, By Mouth, Daily, # 90 capsule, 2 Refills, Maintenance, 07/11/23 9:18:00 EDT, Capsule, [facility] #[id number], Partial fill upon patient request if the prescription is for a schedule II opioid drug., 1 capsule By Mouth Daily, 165.71, cm... Start Date: 07/11/23 Status: Ordered atorvastatin 10 mg oral tablet 1 tablet = 10 mg, By Mouth, Daily, # 90 tablet, 1 Refills, Maintenance, 07/11/23 9:34:00 EDT, [facility] #[id number], Partial fill upon patient request if the prescription is for a schedule II opioid drug., 165.71, cm, 07/11/23 9:12:00 EDT, Height Start Date: 07/11/23 Status: Ordered duloxetine 60 mg oral enteric coated capsule 2 capsule, By Mouth, Daily, # 180 capsule, 1 Refills, Maintenance, 06/12/23 9:27:00 EDT, [facility] #[id number], 165.71, cm, 04/09/23 11:24:00 EDT, Height Start Date: 06/12/23 Status: Ordered ferrous sulfate 325 mg oral [...] Effective Dates Health Status Clinical Service Informant Acute bronchitis Discharge Diagnosis 08/06/23 Vital Signs Most recent to oldest [Reference Range]: 1 Height 165.71 cm (08/06/23 4:00 PM) Social History Social History Type Response Smoking Status Former smoker; Start ed at age: 28; Stopped at age: 38; entered on: 07/25/14 Sex Patient Care team information Care Team Personnel Name: Avis Smith Position: S PCO Associate Professional Member Role: PCP Address: Address: [address] [place] [address]- Care Team Related Persons Name: BOB TRACY Address: home [address] [place] [address] Name: FITO CRANE Address: [address] [place] [address]
--- OUTSIDE RECORDS SUMMARY | 2024-03-04 07:58 | XMS_ITS | Continuity of Care Document ---
Author Organization [facility] Philip lt Address [address] [place] [address]- Care Team Providers Care Occupational Health Nurse Supervisor Name Role Phone Sadie DUMONT, Eris Huff Primary Care Physician [place] [facility] [place] 12/27/19 - 01/26/20 [facility] Adult [address] [place] [address]- [facility] Attending Physician: Nba Mera Admitting Physician: Nba Mera Referring Physician: AdmNba meeks Allergies, Adverse Reactions, Alerts Substance Reaction Severity [...] Daily, # 180 capsule, 1 Refills, Maintenance, 01/10/20 9:50:00 EDT, EC Capsule, [facility] #[id number], 167.64, cm, 12/28/19 11:56:00 EDT, Height, 135, kg, 12/27/2010:56:00 EDT, Dry Weight Start Date: 01/10/20 Status: Ordered ferrous sulfate 325 mg oral [...]
--- OUTSIDE RECORDS SUMMARY | 2024-03-04 07:58 | XMS_ITS | Continuity of Care Document ---
Author Organization [facility] Philip lt Address [address] [place] [address]- Care Team Providers Care Paper Maker Name Role Phone Willie PEÑALOZA, Nupur Primary Care Physician [place] [facility] [place]s): 12/26/21 - 01/25/22 [facility] Adult [address] [place] [address]- Allergies, Adverse Reactions, Alerts Substance Reaction Severity [...] tablet, 3 Refills, Maintenance, 04/18/21 17:16:00 EDT, [facility] #[id number], 167.64, cm, 12/28/19 11:56:00 EDT, Height, 135, kg, 12/28/19 11:56:00 EDT, Dry Weight Start Date: 04/18/21 Status: Ordered duloxetine 60 mg oral enteric coated capsule 2 capsule, By Mouth, Daily, # 180 capsule, 3 Refills, Maintenance, 04/18/21 17:16:00 EDT, [facility] #[id number], 167.64, cm, 12/28/19 11:56:00 EDT, Height, 135, [...]
--- OUTSIDE RECORDS SUMMARY | 2024-03-04 07:58 | XMS_ITS | Continuity of Care Document ---
Author Organization [facility] Philip lt Address [address] [place] [address]- Care Team Providers Care Drill Press Set Up Operator Name Role Phone Jorge Hendrix DO Primary Care Physician Encounter [facility] Date(s): 10/05/23 - 11/04/23 [facility] [place] Adult [address] [place] [address]- Allergies, Adverse Reactions, Alerts No Known Medication [...] Team Personnel Name: Jorge Hendrix DO Position: [facility] Physician - Primary Care Member Role: PCP Address: Address: [address] [place] [address]- Care Team Related Persons Name: BOB TRACY Address: [address] [place] [address] Name: FITO CRANE Address: home [address] [place] [address]
--- OUTSIDE RECORDS SUMMARY | 2024-03-04 07:58 | XMS_ITS | Continuity of Care Document ---
Author Organization [facility] Philip Address [address] [place] [address]- Care Team Providers Care Senior Agricultural Assistant Name Role Phone Eris Noel MD Primary Care Physician [phone] Encounter [facility] Date(s): 10/01/19 - 10/08/19 [facility] Adult [address] [place] [address]- [facility] Attending Physician: Eris Noel MD Allergies, Adverse [...] recent to oldest [Reference Range]: 1 Height 163.5 cm (10/01/19 10:10 AM) Weight 133.4 kg (10/01/19 10:10 AM) Oxygen Saturation [94-100 %] 97 % (10/01/19 10:10 AM) Pulse Rate [55-90 bpm] 80 bpm (10/01/19 10:10 AM) Body Mass Index [18.5-24.99] 49.9 *>HHI* (10/01/19 10:10 AM) Blood Pressure [90-138/55-84 mm Hg] 130/ 76mm Hg (10/01/19 10:10 AM) Temperature [96.8-100.4 DegF] 99.1 DegF (10/01/19 10:10 AM) Mode of Delivery (Oxygen) Room air (10/01/19 10:10 AM) Blood pressure sites Arm, left (10/01/19 10:10 AM) Temperature Route Oral (10/01/19 10:10 AM) Social History Social History Type Response Smoking Status Former smoker; Start ed at age: 28; Stopped at age: 38; entered on: 07/25/14 Sex
--- OUTSIDE RECORDS SUMMARY | 2024-03-04 07:58 | XMS_ITS | Continuity of Care Document ---
Author Organization [facility] Philip lt Address [address] [place] [address]- Care Team Providers Care Hotel Concierge Name Role Phone Willie PEÑALOZA, Nupur Primary Care Physician [place] [facility] [place] 10/23/21 - 11/22/21 [facility] Adult [address] [place] [address]- Allergies, Adverse Reactions, Alerts Substance Reaction Severity [...] tablet, 3 Refills, Maintenance, 04/18/21 17:16:00 EDT, [facility] #[id number], 167.64, cm, 12/28/19 11:56:00 EDT, Height, 135, kg, 12/28/19 11:56:00 EDT, Dry Weight Start Date: 04/18/21 Status: Ordered duloxetine 60 mg oral enteric coated capsule 2 capsule, By Mouth, Daily, # 180 capsule, 3 Refills, Maintenance, 04/18/21 17:16:00 EDT, [facility] #[id number], 167.64, cm, 12/28/19 11:56:00 EDT, Height, 135, [...]
--- OUTSIDE RECORDS SUMMARY | 2024-03-04 07:58 | XMS_ITS | Continuity of Care Document ---
Author Organization [facility] Philip lt Address [address] [place] [address]- Care Team Providers Care Chemical Processing Laborer Name Role Phone Jorge Hendrix DO Primary Care Physician [phone] [place] [facility] [place]23 - 01/10/24 [facility] [place] Adult [address] [place] [address]- Allergies, Adverse Reactions, Alerts No Known Medication [...] Gm, 0 Refills, Maintenance, 01/05/24 16:43:00 EDT, [facility] #[id number], 25, INHALE 2 PUFFS BY MOUTH EVERY [...] 11:04:00 EST Start Date: 09/29/19 Status: Ordered Vit B Complex Tablet 0 [...] Team Personnel Name: Jorge Hendrix DO Position: [facility] Physician - Primary Care Member Role: PCP Address: Address: [address] [place] [address] [place] [address]- Care Team Related Persons Name: BOB TRACY Address: home [address] [place] [address] Name: FITO CRANE Address: home [address] [place] [address]
--- OUTSIDE RECORDS SUMMARY | 2024-03-04 07:58 | XMS_ITS | Continuity of Care Document ---
Author Organization [facility] Philip lt Address [address] [place] [address]- Care Team Providers Care Fruit Picker Machine Operator Name Role Phone Avis Smith Primary Care Physi [facility] En[place] [facility] [place]s): 07/03/22 - 07/10/22 [facility] Adult [address] [place] [address]- Encounter Diagnosis Polyarthralgia(Discharge Diagnosis) - 07/03/22 Attending Physician: Avis Smith Allergies, Adverse Reactions, [...] tablet, 0 Refills, Maintenance, 04/12/22 17:35:00 EDT, [facility] #[id number], Partial fill upon patient request if the prescription is for a schedule II opioid drug., 167.64, cm, 04/11/22 13:47:00 EDT, Height Start Date: 04/12/22 Status: Ordered atorvastatin 10 mg oral tablet 1 tablet, By Mouth, Daily, # 90 tablet, 3 Refills, Maintenance, 04/18/21 17:16:00 EDT, [facility] #[id number], 167.64, cm, 12/28/19 11:56:00 EDT, Height, 135, kg, 12/28/19 11:56:00 EDT, Dry Weight Start Date: 04/18/21 Status: Ordered duloxetine 60 mg oral enteric coated capsule 2 capsule, By Mouth, Daily, # 180 capsule, 3 Refills, Maintenance, 07/03/22 13:13:00 EDT, [facility] #[id number], 167.64, cm, 07/03/22 12:40:00 EDT, Height Start Date: 07/03/22 Status: Ordered ferrous sulfate 325 mg oral enteric coated tablet 325 mg, 1, tablet, By Mouth, Daily, # 30 tablet, Refills 0, Maintenance, 09/29/19 11:04:00 EST Start Date: 09/29/19 Status: Ordered Paxlovid 150 mg-100 mg (150 mg-100 mg Dose) oral tablet See Instructions, take 3 tablets twice a day for 5 days, # 30 tablet, 0 Refills, Maintenance, 04/11/22 13:45:00 EDT, [facility] #[id number], Partial fill upon patient request if the prescriptionis for a schedule II opioid drug. Start Date: 04/11/22 Status: Ordered Vitamin D3 = 2,000 International_Units, [...] Diagnosis Diagnosis Type Effective Dates Health Status Cl inical Service Informant Polyarthralgia Discharge Diagnosis 07/03/22 Vital Signs Most recent to oldest [Reference Range]: 1 Height 167.64 cm (07/03/22 12:40 PM) Weight 133.35 kg (07/03/22 12:40 PM) Body Mass Index [18.5-24.99 kg/m2] 47.45 kg/m2 *>HHI* (07/03/22 12:40 PM) Weight Obtained Via Patient/family state d (07/03/22 12:40 PM) Social History Social History Type Response Smoking Status Former smoker; Start ed at age: 28; Stopped at age: 38; entered on: 07/25/14 Sex Patient Care team information Personnel Name: Avis Smith Address: Address: [address] [place] [address] Adult Medicine [place], [place] [address]
--- OUTSIDE RECORDS SUMMARY | 2024-03-04 07:58 | XMS_ITS | Continuity of Care Document ---
Author Organization [facility] Phliip Address [address] [place] [address]- Care Team Providers Care Medical Apparatus Model Maker Name Role Phone Eris Noel MD Primary Care Physician En[place] [facility] [place] Date(s): 10/01/19 - 12/16/19 [facility] Adult [address] [place] [address]- [facility] Attending Physician: Eris Noel MD [...]
--- OUTSIDE RECORDS SUMMARY | 2024-03-04 07:58 | XMS_ITS | Continuity of Care Document ---
Author Organization [facility] Maxim[facility]imental Philip lt Address [address] [place] [address]- Care Team Providers Care Judicial Administrative Assistant Name Role Phone Jorge Hendrix DO Primary Care Physician [phone] Encounter [facility] Date(s): 10/05/23 - 11/04/23 [facility] Adult [address] [place] [address]- Allergies, Adverse Reactions, Alerts No Known Medication [...] Team Personnel Name: Jorge Hendrix DO Position: [facility] Physician - Primary Care Member Role: PCP Address: Address: [address] [place] [address]- Care Team Related Persons Name: BOB TRACY Address: [address] [place] [address] Name: FITO CRANE Address: [address] [place] [address]
--- OUTSIDE RECORDS SUMMARY | 2024-03-04 07:58 | XMS_ITS | Continuity of Care Document ---
Author Organization [facility] Philip lt Address [address] [place] [address]- Care Team Providers Care Principal Programmer Name Role Phone Sadie DUMONT, Eris Huff Primary Care Physician Encounter [facility] Date(s): 02/10/21 - 03/12/21 [facility] Adult [address] [place] [address]- Allergies, Adverse Reactions, Alerts Substance Reaction Severity [...] tablet = 10 mg, By Mouth, Daily, Please call for an appt for refills, # 90 tablet, 0 Refills, Maintenance, 01/17/21 16:02:00 EDT, [facility] #[id number], 167.64, cm, 12/28/19 11:56:00 EDT, Height, 135, kg, 12/28/19 11:56:00 EDT, Dry Weight Start Date: 01/17/21 Status: Ordered duloxetine 60 mg oral enteric coated capsule 2 capsule = 120 mg, By Mouth, Daily, # 180 capsule, 3 Refills, Maintenance, 04/26/20 8:35:00 EDT, EC Capsule, [facility] #[id number], 167.64, cm, 12/28/19 11:56:00 EDT, Height, 135, [...]
--- OUTSIDE RECORDS SUMMARY | 2024-03-04 07:58 | XMS_ITS | Continuity of Care Document ---
Author Organization [facility] Hola Philip Address [address] [place] [address]- Care Team Providers Care Carpenter General Name Role Phone Jorge Hendrix DO Primary Care Physician Encounter [facility] [place] Date(s): 11/14/23 - 12/14/23 [facility] Adult [address] [place] [address]- Allergies, Adverse Reactions, Alerts No Known Medication [...] 12/17/23 12:35:00 EDT, 12/12/23 12:35:00 EDT, Capsule, [facility] #[id number], 165, cm, 12/11/23 11:19:00 EDT, Height, 130, kg, 09/25/23 22:31:00 EST, Dry Weight Start Date: 12/12/23 Stop Date: 12/17/23 Status: Ordered ProAir HFA 90 mcg/inh inhalation aerosol with adapter 2, puffs, Inhalation, Every 6 hours, PRN, # 8.5 Gm, Refills 0, Tot. Refills 0, Maintenance, 11/12/23 15:22:00 EST, Aerosol, Route to Pharmacy Electronically, NCPDP_[id number], [facility] #[id number], 165, cm, 11/12/23 15:21:00 EST, Height, 130, [...] Team Personnel Name: Jorge Hendrix DO Position: [facility] Physician - Primary Care Member Role: PCP Address: Address: [address] [place] [address]- Care Team Related Persons Name: BOB TRACY Address: home [address] [place] [address] [place] Name: FITO CRANE Address: home [address] [place] [address]
--- OUTSIDE RECORDS SUMMARY | 2024-03-04 07:58 | XMS_ITS | Continuity of Care Document ---
Author Organization [facility] Philip lt Address [address] [place] [address]- Care Team Providers Care Supervising Nurse Name Role Phone Jorge Hendrix DO Primary Care Physician Encounter [facility] [place] Date(s): 12/12/23 - 01/11/24 [facility] Adult [address] [place] [address]- Allergies, Adverse Reactions, Alerts No Known Medication [...] Gm, 0 Refills, Maintenance, 01/05/24 16:43:00 EDT, [facility] #[id number], 25, INHALE 2 PUFFS BY MOUTH EVERY [...] Team Personnel Name: Jorge Hendrix DO Position: [facility] Physician - Primary Care Member Role: PCP Address: Address: [address] [place] [address] [place] [address]- Care Team Related Persons Name: BOB TRACY Address: home [address] [place] [address] Name: FITO CRANE Address: home [address] [place] [address]
--- OUTSIDE RECORDS SUMMARY | 2024-03-04 07:58 | XMS_ITS | Continuity of Care Document ---
Author Organization [facility] Address [address] [place] [address]- Care Team Providers Care Guide Changer Name Role Phone Jorge Hendrix DO Primary Care Physician [phone] [id number]18[facility] [address] [place] [address]- Encounter Diagnosis Left supraspinatus tendinitis(Discharge Diagnosis) - 12/11/23 Adhesive capsulitis of left shoulder(Discharge Diagnosis) - 12/11/23 Attending Physician: Edmund Isaacs MD Referring Physician: [...] 15:22:00 EST, Aerosol, Route to Pharmacy Electronically, CTPDP_[id number], [facility] #[id number], 165, cm, 11/12/23 15:21:00 EST, Height, 130, [...] Service Informant Left supraspinatus tendinitis Discharge Diagnosis 12/11/23 Adhesive capsulitis of left shoulder Discharge Diagnosis 12/11/23 Vital Signs Most recent to oldest [Reference Range]: 1 Height 165 cm (12/11/23 11:19 AM) Weight 125.3 kg (12/11/23 11:19 AM) Oxygen Saturation [94-100 %] 96 % (12/11/23 11:19 AM) Pulse Rate [55-90 bpm] 67 bpm (12/11/23 11:19 AM) Body Mass Index [18.5-24.99 kg/m2] 46.02 kg/m2 *>HHI* (12/11/23 11:19 AM) Blood Pressure [90-138/55-84 mm Hg] 134/ 69mm Hg (12/11/23 11:19 AM) Mode of Delivery (Oxygen) Room air (12/11/23 11:19 AM) Blood pressure sites Arm, left (12/11/23 11:19 AM) Weight Obtained Via Bed scale (12/11/23 11:19 AM) Social History Social History Type Response Smoking Status Former smoker; Start ed at age: 28; Stopped at age: 38; entered on: 07/25/14 Sex Patient Care team information Care Team Personnel Name: Jorge Hendrix DO Position: S Physician - Primary Care Member Role: PCP Address: Address: [address] [place] [address]- Care Team Related Persons Name: DEMARCUS BOB Address: home [address] [place] [address] [place] Name: FITO CRANE Address: home [address] [place] [address]
--- OUTSIDE RECORDS SUMMARY | 2024-03-04 07:58 | XMS_ITS | Continuity of Care Document ---
Author Organization [facility] Philip lt Address [address] [place] [address]- Care Team Providers Care Melt Supervisor Name Role Phone Sadie DUMONT, Eris Huff Primary Care Physician [place] [facility] [place] Date(s): 11/16/19 - 11/26/19 [facility] Adult [address] [place] [address]- [facility] Attending Physician: Nba Mera Admitting Physician: bNa Mera Referring Physician: Nba Mera Allergies, Adverse Reactions, Alerts Substance Reaction Severity [...]
--- OUTSIDE RECORDS SUMMARY | 2024-03-04 07:58 | XMS_ITS | Continuity of Care Document ---
Author Organization [facility] Hol[facility] Philip Address [address] [place] [address]- Care Team Providers Care Salesperson [employer] Sh[employer] Name Role Phone Jorge Hendrix DO Primary Care Physician [place] [facility] [place] 11/14/23 - 12/14/23 [facility] Adult [address] [place] [address]- Allergies, Adverse Reactions, Alerts No Known Medication [...] 12/17/23 12:35:00 EDT, 12/12/23 12:35:00 EDT, Capsule, [facility] #[id number], 165, cm, 12/11/23 11:19:00 EDT, Height, 130, kg, 09/25/23 22:31:00 EST, Dry Weight Start Date: 12/12/23 Stop Date: 12/17/23 Status: Ordered ProAir HFA 90 mcg/inh inhalation aerosol with adapter 2, puffs, Inhalation, Every 6 hours, PRN, # 8.5 Gm, Refills 0, Tot. Refills 0, Maintenance, 11/12/23 15:22:00 EST, Aerosol, Route to Pharmacy Electronically, NCPDP_[id number], [facility] #[id number], 165, cm, 11/12/23 15:21:00 EST, Height, 130, [...] Team Personnel Name: Jorge Hendrix DO Position: [facility] Physician - Primary Care Member Role: PCP Address: Address: [address] [place] [address]- Care Team Related Persons Name: BOB TRACY Address: home [address] [place] [address] [place] Name: FITO RCANE Address: home [address] [place] [address]
--- OUTSIDE RECORDS SUMMARY | 2024-03-04 07:58 | XMS_ITS | Continuity of Care Document ---
Author Organization [facility] Philip Address [address] [place] [address]- Care Team Providers Care Supervisor [employer] Name Role Phone Avis Smith Primary Care Physi lui Encounter [facility] [place] Date(s): 11/20/22 - 12/20/22 [facility] Adult [address] [place] [address]- Attending Physician: Admtr, Ar8 Admitting Physician: Admtr, Ar8 Referring Physician: Admtr, Ar8 Allergies, Adverse Reactions, Alerts Substance Reaction Severity [...] Daily, # 90 tablet, 1 Refills, Maintenance, 09/17/22 11:15:00 [id number], Partial fill upon patient request if the prescription is for a schedule II opioid drug., 167.64, cm, 07/26/22 10:53:00 EST, Height Start Date: 09/17/22 Status: Ordered duloxetine 60 mg oral enteric coated capsule 2 capsule, By Mouth, Daily, # 180 capsule, 3 Refills, Maintenance, 07/03/22 13:13:00 EDT, [facility] #[id number], 167.64, cm, 07/03/22 12:40:00 EDT, Height Start [...] leg Confirmed Active Severe obesity Confirmed Active Procedures Procedure Date Related Diagnosis Body Site Status Colonoscopy - Due 202307/11/14 Co mpleted colonscopy 2010 due 2020 Completed lap banding procedure Com pleted sleep study 2009 nasal CPAP at 6 cm H2O Completed Social History Social History Type Response Smoking Status Former smoker; Start ed at age: 28; Stopped at age: 38; entered on: 07/25/14 Sex Note * Event Display: MRI Ankle/Foot, Non- BH Authored Date: * Event Display: Radiology Result Scanned Authored Date: * Sona Aquino: PERFORM Event Display: Radiology Results Scanned Authored Date: * Razia Hernandez: PERFORM Event Display: Radiology Results Scanned Authored Date: [id number] Patient Care team information Care Team Personnel Name: Avis Smith Position: [facility] PCO Associate Professional Member Role: PCP Address: Address: [address] [place] [address]- Care Team Related Persons Name: BOB TRACY Address: home [address] [place] [address] Name: FITO CRANE Address: home [address] [place] [address]
--- OUTSIDE RECORDS SUMMARY | 2024-03-04 07:58 | XMS_ITS | Continuity of Care Document ---
Author Organization [facility] Philip Address [address] [place] [address]- Care Team Providers Care Offset Press Operator Name Role Phone Avis Smith Primary Care Physi lui Encounter [facility] [place] Date(s): 05/22/23 - 06/21/23 [facility] Adult [address] [place] [address]- Allergies, Adverse Reactions, Alerts Substance Reaction Severity Status Other Environmental Allergy didn't disov le had to be removed surgically vicryl sutures Active Immunizations Given and Recorded Vaccine Date Status Refusal Reason SARS-CoV-2 (COVID-19) mRNA-1273 vaccine 07/20/21 R ecorded SARS-CoV-2 (COVID-19) mRNA-1273 vaccine 12/13/20 R ecorded SARS-CoV-2 (COVID-19) mRNA-1273 vaccine 11/15/20 R ecorded tetanus-diphtheria toxoids (Td) 06/17/13 Given Medications amlodipine-benazepril 5 mg-20 mg oral capsule See Instructions, TAKE 1 CAPSULE BY MOUTH DAILY NEW MEDICATION TO. FOLLOW, # 30 capsule, 0 Refills,Maintenance, 06/19/23 12:56:00 [id number], 30, TAKE 1 CAPSULE BY MOUTH DAILY NEW MEDICATION TO. FOLLOW, 165.71, cm, 04/09/23 11:2... Start Date: 06/19/23 Status: Ordered atorvastatin 10 mg oral tablet 1 tablet = 10 mg, By Mouth, Daily, # 90 tablet, 1 Refills, Maintenance, 09/17/22 11:15:00 [id number], Partial fill upon patient request if the prescription is for a schedule II opioid drug., 167.64, cm, 07/26/22 10:53:00 EST, Height Start Date: 09/17/22 Status: Ordered duloxetine 60 mg oral enteric coated capsule 2 capsule, By Mouth, Daily, # 180 capsule, 1 Refills, Maintenance, 06/12/23 9:27:00 EDT, [facility] #[id number], 165.71, cm, 04/09/23 11:24:00 EDT, Height Start [...] Care Team Personnel Name: Avis Smith Position: [facility] PCO Associate Professional Member Role: PCP Address: Address: [address] [place] [address]- Care Team Related Persons Name: BOB TRACY Address: home [address] [place] [address] Name: FITO CRANE Address: home [address] [place] [address]
--- OUTSIDE RECORDS SUMMARY | 2024-03-04 07:58 | XMS_ITS | Continuity of Care Document ---
Author Organization [facility] Hola Phiilp lt Address [address] [place] [address]- Care Team Providers Care Gis Software Developer Name Role Phone Willie PEÑALOZA, Nupur Primary Care Physician Encounter [facility] [place] Date(s): 09/28/21 - 12/26/21 [facility] [place] Adult [address] [place] [address]- Attending Physician: Nupur Tapia NP Referring Physician: Farzad DUMONT, Flakito Gutierres Allergies, Adverse Reactions, Alerts Substance Reaction Severity [...] tablet, 3 Refills, Maintenance, 04/18/21 17:16:00 EDT, [facility] #[id number], 167.64, cm, 12/28/19 11:56:00 EDT, Height, 135, kg, 12/28/19 11:56:00 EDT, Dry Weight Start Date: 04/18/21 Status: Ordered duloxetine 60 mg oral enteric coated capsule 2 capsule, By Mouth, Daily, # 180 capsule, 3 Refills, Maintenance, 04/18/21 17:16:00 EDT, [facility] #[id number], 167.64, cm, 12/28/19 11:56:00 EDT, Height, 135, [...] 12/31/21 17:16:00 EDT, 12/26/21 17:16:00 EDT, Capsule, [facility] #[id number], Partial fill upon patient request if the [...]
--- OUTSIDE RECORDS SUMMARY | 2024-03-04 07:58 | XMS_ITS | Continuity of Care Document ---
Author Organization [facility] ter Address [address] [place] [address]- Care Team Providers Care Timber Treatment Plant Operator Name Role Phone Eris Noel MD Primary Care Physician Encounter [facility] [place] Date(s): 10/05/19 - 10/05/[address] [address]- [facility] Discharge Disposition: A-D/C Home Attending Physician: Kunal [...] oldest [Reference Range]: 1 2 3 Height 165 cm (10/05/19 7:00 AM) 163.5 cm (09/29/19 11:21 AM) Weight 133.4 kg (10/05/19 7:00 AM) 131.82 kg (09/29/19 11:21 AM) Oxygen Saturation [94-100 %] 98 % (10/05/19 9:45 AM) 96 % (10/05/19 9:30 AM) 95 % (10/05/19 9:15 AM) Pulse Rate [55-90 bpm] 85 bpm (10/05/19 7:00 AM) Body Mass Index [18.5-24.99] 49 *>HHI* (10/05/19 7:00 AM) 49.31 *>HHI* (09/29/19 11:21 AM) Blood Pressure [90-138/55-84 mm Hg] 153/79mm Hg *H* (10/05/19 9:30 AM) 137/75mm Hg (10/05/19 9:15 AM) 144/88mm Hg *H* (10/05/19 8:30 AM) Respiratory Rate [16-30 br/min] 16 br/min (10/05/19 9:30 AM) 18 br/min (10/05/19 9:15 AM) 16 br/min (10/05/19 8:30 AM) Temperature [96.8-100.4 DegF] 98.1 DegF (10/05/19 9:15 AM) 97.1 DegF (10/05/19 7:00 AM) Liters per Minute 2 L/min (10/05/19 8:30 AM) 2 L/min (10/05/19 8:15 AM) 2 L/min (10/05/19 8:10 AM) Mode of Delivery (Oxygen) Room air (10/05/19 9:30 AM) Room air (10/05/19 9:15 AM) Nasal cannula (10/05/19 8:30 AM) Blood pressure sites Arm, left (10/05/19 7:00 AM) Temperature Route Temporal (10/05/19 9:15 AM) Temporal (10/05/19 7:00 AM) Dry Weight 133.4 kg (10/05/19 7:00 AM) 131.82 kg (09/29/19 11:21 AM) Weight Obtained Via Standing scale (10/05/19 7:00 AM) Patient/family stated (09/29/19 11:21 AM) Dry Weight Obtained Via Standing scale (10/05/19 7:00 AM) Patient/family stated (09/29/19 11:21 AM) Social History Social History Type Response Smoking Status Former smoker; Start ed at age: 28; Stopped at age: 38; entered on: 07/25/14 Sex
--- OUTSIDE RECORDS SUMMARY | 2024-03-04 07:58 | XMS_ITS | Continuity of Care Document ---
Author Organization [facility] Philip Address [address] [place] [address]- Care Team Providers Care Health Tech Name Role Phone Eris Noel MD Primary Care Physician [place] [facility] [place] 02/23/21 - 06/23/21 [facility] Adult [address] [place] [address]- Attending Physician: Eris Noel MD Allergies, Adverse [...] tablet, 3 Refills, Maintenance, 04/18/21 17:16:00 EDT, [facility] #[id number], 167.64, cm, 12/28/19 11:56:00 EDT, Height, 135, kg, 12/28/19 11:56:00 EDT, Dry Weight Start Date: 04/18/21 Status: Ordered duloxetine 60 mg oral enteric coated capsule 2 capsule, By Mouth, Daily, # 180 capsule, 3 Refills, Maintenance, 04/18/21 17:16:00 EDT, [facility] #[id number], 167.64, cm, 12/28/19 11:56:00 EDT, Height, 135, [...]
--- OUTSIDE RECORDS SUMMARY | 2024-03-04 07:58 | XMS_ITS | Continuity of Care Document ---
Author Organization [facility] Address [address] [place] [address]- Care Team Providers Care Hospital Cleaner Name Role Phone Jorge Hendrix DO Primary Care Physician [place] [facility] [place] [facility] [place] [id number] Date(s): 02/12/24 - 02/19/24 [facility] [address] [place] [address]- Encounter Diagnosis Tear of left supraspinatus tendon(Discharge Diagnosis) - 02/12/24 Attending Physician: Edmund Isaacs MD Referring Physician: [...] Gm, 0 Refills, Maintenance, 01/05/24 16:43:00 EDT, [facility] #[id number], 25, INHALE 2 PUFFS BY MOUTH EVERY [...] 02/12/24 11:15:00 EDT, Route to Pharmacy Electronically, [facility] #[id number], Partial fill upon patient request if the [...] Effective Dates Health Status Clinical Service Informant Tear of left supraspinatus tendon Discharge Diagnosis 02/12/24 Vital Signs Most recent to oldest [Reference Range]: 1 Height 165 cm (02/12/24 10:53 AM) Weight 123.5 kg (02/12/24 10:53 AM) Oxygen Saturation [94-100 %] 95 % (02/12/24 10:53 AM) Pulse Rate [55-90 bpm] 65 bpm (02/12/24 10:53 AM) Body Mass Index [18.5-24.99 kg/m2] 45.36 kg/m2 *>HHI* (02/12/24 10:53 AM) Blood Pressure [90-138/55-84 mm Hg] 122/ 69mm Hg (02/12/24 10:53 AM) Respiratory Rate [16-30 br/min] 16 br/mi n (02/12/24 10:53 AM) Blood pressure sites Arm, right (02/12/24 10:53 AM) Weight Obtained Via Bed scale (02/12/24 10:53 AM) Social History Social History Type Response Smoking Status Former smoker; Start ed at age: 28; Stopped at age: 38; entered on: 07/25/14 Sex Patient Care team information Care Team Personnel Name: Jorge Hendrix DO Position: S Physician - Primary Care Member Role: PCP Address: Address: [address] [place], [place] [address], [place] [address]- [place] Care Team Related Persons Name: BOB TRACY Address: home [address] [place] [address] [place] Name: FITO CRANE Address: home [address] [place] [address]
--- OUTSIDE RECORDS SUMMARY | 2024-03-04 07:58 | XMS_ITS | Continuity of Care Document ---
Author Organization [facility] Philip Address [address] [place] [address]- Care Team Providers Care Egg Pasteurizer Name Role Phone Avis Smith Primary Care Physi lui [place] [facility] [place](s): 04/18/23 - 05/18/23 [facility] Adult [address] [place] [address]- Allergies, Adverse Reactions, Alerts Substance Reaction Severity [...] Medications amlodipine-benazepril 5 mg-20 mg oral capsule 1 capsule, By Mouth, Daily, New medication to follow. Needs OV for continuation of management., # 30 capsule, 0 Refills, Maintenance, 04/18/23 10:58:[id number], Partial fill upon patient request if the prescription is for a sc... Start Date: 04/18/23 Status: Ordered atorvastatin 10 mg oral tablet 1 tablet = 10 mg, By Mouth, Daily, # 90 tablet, 1 Refills, Maintenance, 09/17/22 11:15:[id number], Partial fill upon patient request if the prescription is for a schedule II opioid drug., 167.64, cm, 07/26/22 10:53:00 EST, Height Start Date: 09/17/22 Status: Ordered duloxetine 60 mg oral enteric coated capsule 2 capsule, By Mouth, Daily, # 180 capsule, 3 Refills, Maintenance, 07/03/22 13:13:00 EDT, [facility] #[id number], 167.64, cm, 07/03/22 12:40:00 EDT, Height Start [...] Care Team Personnel Name: Avis Smith Position: [facility] PCO Associate Professional Member Role: PCP Address: Address: [address] [place] [address]- Care Team Related Persons Name: BOB TRACY Address: home [address] [place] [address] Name: FITO CRANE Address: home [address] [place] [address]
--- OUTSIDE RECORDS SUMMARY | 2024-03-04 07:58 | XMS_ITS | Continuity of Care Document ---
Author Organization [facility] Philip lt Address [address] [place] [address]- Care Team Providers Care Lime Sludge Mixer Name Role Phone Avis Smith Primary Care Physi lui En[place] [facility] [place] Date(s): 08/22/23 - 09/21/23 [facility] Adult [address] [place] [address]- Encounter Diagnosis Acute bronchitis(Discharge Diagnosis) - 08/22/23 Allergies, Adverse Reactions, Alerts Substance Reaction Severity [...] Clinical Service Informant Acute bronchitis Discharge Diagnosis 08/22/23 Non-Specified Social History Social History Type Response Smoking Status Former smoker; Start ed at age: 28; Stopped at age: 38; entered on: 07/25/14 Sex Patient Care team information Care Team Personnel Name: Avis Smith Position: [facility] PCO Associate Professional Member Role: PCP Address: Address: [address] [place] [address]- Care Team Related Persons Name: BOB TRACY Address: [address] [place] [address] Name: FITO CRANE Address: [address] [place] [address]
--- OUTSIDE RECORDS SUMMARY | 2024-03-04 07:58 | XMS_ITS | Continuity of Care Document ---
Author Organization [facility] Hola Philip lt Address [address] [place] [address]- Care Team Providers Care Digital Media Sales Consultant Name Role Phone Nupur Tapia NP Primary Care Physician [phone] En[place] [facility] [place] 04/11/22 - 04/18/22 [facility] [place] Adult [address] [place] [address]- Encounter Diagnosis COVID-19 virus infection(Discharge Diagnosis) - 04/11/22 Cough(Discharge Diagnosis) - 04/11/22 Attending Physician: Nupur Tapia NP Allergies, Adverse Reactions, Alerts Substance Reaction Severity [...] tablet, 0 Refills, Maintenance, 04/12/22 17:35:00 EDT, [facility] #[id number], Partial fill upon patient request if the prescription is for a schedule II opioid drug., 167.64, cm, 04/11/22 13:47:00 EDT, Height Start Date: 04/12/22 Status: Ordered atorvastatin 10 mg oral tablet 1 tablet, By Mouth, Daily, # 90 tablet, 3 Refills, Maintenance, 04/18/21 17:16:00 EDT, [facility] #[id number], 167.64, cm, 12/28/19 11:56:00 EDT, Height, 135, kg, 12/28/19 11:56:00 EDT, Dry Weight Start Date: 04/18/21 Status: Ordered duloxetine 60 mg oral enteric coated capsule 2 capsule, By Mouth, Daily, # 180 capsule, 3 Refills, Maintenance, 04/18/21 17:16:00 EDT, [facility]38163, 167.64, cm, 12/28/19 11:56:00 EDT, Height, 135, [...] tablet, 0 Refills, Maintenance, 04/11/22 13:45:00 EDT, [facility] #[id number], Partial fill upon patient request if the [...] Obstructive sleep apnea(Confirmed) Active Restless leg(Confirmed) Active Diagnosis Diagnosis Type Effective Dates Health Status Cl inical Service Informant COVID-19 virus infection Discharge Diagnosis 04/11/22 Cough Discharge Diagnosis 04/11/22 Vital Signs Most recent to oldest [Reference Range]: 1 Height 167.64 cm (04/11/22 1:47 PM) Oxygen Saturation [94-100 %] 96 % (04/11/22 1:47 PM) Social History Social History Type Response Smoking Status Former smoker; Start ed at age: 28; Stopped at age: 38; entered on: 07/25/14 Sex
--- OUTSIDE RECORDS SUMMARY | 2024-03-04 07:58 | XMS_ITS | Continuity of Care Document ---
Author Organization [facility]a Philip Address [address] [place] [address]- Care Team Providers Care Peanut Picker Name Role Phone Eris Noel MD Primary Care Physician [place] [facility] 12/27/19 - 01/26/20 [facility] Adult [address] [place] [address]- [facility] Attending Physician: Eris Noel MD [...] Refills, Maintenance, 01/10/20 9:50:00 EDT, EC Capsule, [facility] #[id number], 167.64, cm, 12/28/19 11:56:00 EDT, Height, 135, [...]
--- OUTSIDE RECORDS SUMMARY | 2024-03-04 07:58 | XMS_ITS | Continuity of Care Document ---
Author Organization [facility] Philip Address [address] [place] [address]- Care Team Providers Care Energy Efficiency Specialist Name Role Phone Avis Smith Primary Care Physi lui En[place] [facility] [place] Date(s): 05/20/23 - 06/19/23 [facility] Adult [address] [place] [address]- Allergies, Adverse Reactions, Alerts Substance Reaction Severity [...] # 30 capsule, 0 Refills,Maintenance, 06/19/23 12:56:[id number], 30, TAKE 1 CAPSULE BY MOUTH DAILY NEW MEDICATION TO. FOLLOW, 165.71, cm, 04/09/23 11:2... Start Date: 06/19/23 Status: Ordered atorvastatin 10 mg oral tablet 1 tablet = 10 mg, By Mouth, Daily, # 90 tablet, 1 Refills, Maintenance, 09/17/22 11:15:00 [id number], Partial fill upon patient request if the prescription is for a schedule II opioid drug., 167.64, cm, 07/26/22 10:53:00 EST, Height Start Date: 09/17/22 Status: Ordered duloxetine 60 mg oral enteric coated capsule 2 capsule, By Mouth, Daily, # 180 capsule, 1 Refills, Maintenance, 06/12/23 9:27:00 EDT, [facility] #[id number], 165.71, cm, 04/09/23 11:24:00 EDT, Height Start [...] Care Team Personnel Name: Avis Smith Position: [facility] PCO Associate Professional Member Role: PCP Address: Address: [address] [place] [address]- Care Team Related Persons Name: BOB TRACY Address: home [address] [place] [address] [place] Name: FITO CRANE Address: home [address] [place] [address]
--- OUTSIDE RECORDS SUMMARY | 2024-03-04 07:58 | XMS_ITS | Continuity of Care Document ---
Author Organization [facility] Hola Philip Address [address] [place] [address]- Care Team Providers Care Child Care Nurse Name Role Phone Avis Smith Primary Care Physi lui Encounter [facility] [place] Date(s): 08/06/23 - 09/05/23 [facility] Adult [address] [place] [address]- Allergies, Adverse Reactions, Alerts Substance Reaction Severity [...] Care Team Personnel Name: Avis Smith Position: [facility] Associate Professional Member Role: PCP Address: Address: [address] [place] [address]- Care Team Related Persons Name: BOB TRACY Address: home [address] [place] [address] Name: FITO CRANE Address: home [address] [place] [address]
--- OUTSIDE RECORDS SUMMARY | 2024-03-04 07:58 | XMS_ITS | Continuity of Care Document ---
Author Organization [facility] Philip Address [address] [place] [address]- Care Team Providers Care Pin Feather Machine Operator Name Role Phone Avis Smith Primary Care Physi lui Encounter [facility] Date(s): 09/17/22 - 10/17/22 [facility] Adult [address] [place] [address]- Allergies, Adverse Reactions, Alerts Substance Reaction Severity [...] 90 tablet, 1 Refills, Maintenance, 09/17/22 11:15:00 EST, [email or web address] #[id number], Partial fill upon patient request if the prescription is for a schedule II opioid drug., 167.64, cm, 07/26/22 10:53:00 EST, Height Start Date: 09/17/22 Status: Ordered duloxetine 60 mg oral enteric coated capsule 2 capsule, By Mouth, Daily, # 180 capsule, 3 Refills, Maintenance, 07/03/22 13:13:00 EDT, [facility] #[id number], 167.64, cm, 07/03/22 12:40:00 EDT, Height Start [...] Professional Member Role: PCP Address: Address: [address] [place] [address] [place] [address]- Care Team Related Persons Name: BOB TRACY Address: [address] [place] [address] Name: FITO CRANE Address: home [address] [place] [address]
--- OUTSIDE RECORDS SUMMARY | 2024-03-04 07:58 | XMS_ITS | Continuity of Care Document ---
Author Organization [facility] Hola Philip Address [address] [place] [address]- Care Team Providers Care Manager Mail Name Role Phone Eris Noel MD Primary Care Physician Encounter [facility] [place] Date(s): 12/24/19 - 12/31/19 [facility] Adult [address] [place] [address]- [facility] Attending Physician: Eris Noel MD Allergies, Adverse [...]
--- OUTSIDE RECORDS SUMMARY | 2024-03-04 07:58 | XMS_ITS | Continuity of Care Document ---
Author Organization [facility] Hola Philip lt Address [address] [place] [address]- Care Team Providers Care E M Assembler Name Role Phone Sadie DUMONT, Eris Huff Primary Care Physician [phone] Encounter [facility] Date(s): 08/08/21 - 09/07/21 [facility] [place] Adult [address] [place] [address]- Attending Physician: Nba Mera Admitting Physician: Nba [...] tablet, 3 Refills, Maintenance, 04/18/21 17:16:00 EDT, [facility] #[id number], 167.64, cm, 12/28/19 11:56:00 EDT, Height, 135, kg, 12/28/19 11:56:00 EDT, Dry Weight Start Date: 04/18/21 Status: Ordered duloxetine 60 mg oral enteric coated capsule 2 capsule, By Mouth, Daily, # 180 capsule, 3 Refills, Maintenance, 04/18/21 17:16:00 EDT, [facility][id number], 167.64, cm, 12/28/19 11:56:00 EDT, Height, 135, [...] due 2020 Com[facility] 6 cm H2O Completed Social History Social History Type Response Smoking Status Former smoker; Start ed at age: 28; Stopped at age: 38; entered on: 07/25/14 Sex
--- OUTSIDE RECORDS SUMMARY | 2024-03-04 07:58 | XMS_ITS | Continuity of Care Document ---
Author Organization [facility] Philip lt Address [address] [place] [address]- Care Team Providers Care Back Filler Operator Name Role Phone Avis Smith Primary Care Physi lui Encounter [facility] Date(s): 07/15/23 - 08/14/23 [facility] Adult [address] [place] [address]- Allergies, Adverse Reactions, Alerts Substance Reaction Severity [...] 2 Refills, Maintenance, 07/11/23 9:18:00 EDT, Capsule, [facility] #[id number], Partial fill upon patient request if the prescription is for a schedule II opioid drug., 1 capsule By Mouth Daily, 165.71, cm... Start Date: 07/11/23 Status: Ordered atorvastatin 10 mg oral tablet 1 tablet = 10 mg, By Mouth, Daily, # 90 tablet, 1 Refills, Maintenance, 07/11/23 9:34:00 EDT, [facility] #[id number], Partial fill upon patient request if the prescription is for a schedule II opioid drug., 165.71, cm, 07/11/23 9:12:00 EDT, Height Start Date: 07/11/23 Status: Ordered duloxetine 60 mg oral enteric coated capsule 2 capsule, By Mouth, Daily, # 180 capsule, 1 Refills, Maintenance, 06/12/23 9:27:00 EDT, [facility][id number], 165.71, cm, 04/09/23 11:24:00 EDT, Height Start [...] Care Team Personnel Name: Avis Smith Position: [facility] Associate Professional Member Role: PCP Address: Address: [address] [place] [address]- Care Team Related Persons Name: BOB TRACY Address: [address] [place] [address] Name: FITO CRANE Address: [address] [place] [address]
--- OUTSIDE RECORDS SUMMARY | 2024-03-04 07:58 | XMS_ITS | Continuity of Care Document ---
Author Organization [facility] Philip Address [address] [place] [address]- Care Team Providers Care Injection Mold Tooling Technician Name Role Phone Avis Smith Primary Care Physi lui Encounter [facility] [place] Date(s): 06/28/22 - 07/28/22 [facility] Adult [address] [place] [address]- Allergies, Adverse Reactions, Alerts Substance Reaction Severity [...] tablet, 0 Refills, Maintenance, 04/12/22 17:35:00 EDT, [facility] #[id number], Partial fill upon patient request if the prescription is for a schedule II opioid drug., 167.64, cm, 04/11/22 13:47:00 EDT, Height Start Date: 04/12/22 Status: Ordered duloxetine 60 mg oral enteric coated capsule 2 capsule, By Mouth, Daily, # 180 capsule, 3 Refills, Maintenance, 07/03/22 13:13:00 EDT, [facility] #[id number], 167.64, cm, 07/03/22 12:40:00 EDT, Height Start [...] Professional Member Role: PCP Address: Address: [address] [facility] [place] [address]- Care Team Related Persons Name: BOB TRACY Address: [address] [place] [address] Name: FITO CRANE Address: [address] [place] [address]
--- OUTSIDE RECORDS SUMMARY | 2024-03-04 07:58 | XMS_ITS | Continuity of Care Document ---
Author Organization [facility] Hola Philip lt Address [address] [place] [address]- Care Team Providers Care Research Kennel Supervisor Name Role Phone Jorge Hendrix DO Primary Care Physician Encounter [facility] Date(s): 11/06/23 - 11/13/[facility] [place] Adult [address] [place] [address]- Encounter Diagnosis Vision loss of right eye(Discharge Diagnosis) - 10/13/23 OA - Osteoarthritis of knee - left(Discharge Diagnosis) - 10/13/23 Major depression in partial remission(Discharge Diagnosis) - 10/13/23 Osteopenia(Discharge Diagnosis) - 10/13/23 Strep pharyngitis(Discharge Diagnosis) - 11/06/23 Left shoulder pain(Discharge Diagnosis) - 11/06/23 Severe obesity(Discharge Diagnosis) - 11/06/23 Mental status change resolved(Discharge Diagnosis) - 10/13/23 KESHIA - Obstructive sleep apnea(Discharge Diagnosis) - 10/13/23 Essential hypertension(Discharge Diagnosis) - 10/13/23 Mixed hyperlipidemia(Discharge Diagnosis) - 10/13/23 Restless leg(Discharge Diagnosis) - 10/13/23 Attending Physician: Jorge Hendrix DO Allergies, Adverse Reactions, [...] Daily, 165.71,... Start Date: 09/04/23 Status: Ordered amoxicillin 500 mg oral capsule 1 capsule = 500 mg, By Mouth, 2 times a day, for 10 days, # 20 capsule, 0 Refills, Acute 11/16/23 13:11:00 EDT, 11/06/23 13:11:00 EST, [facility] #[id number], Partial fill upon patient request if the prescription is for a schedule II opioid drug.... Start Date: 11/06/23 Stop Date: 11/16/23 Status: Ordered atorvastatin 10 mg oral tablet [...] 11:04:00 EST Start Date: 09/29/19 Status: Ordered predniSONE 20 mg oral tablet 1 tablet = 20 mg, By Mouth, 2 times a day, for 5 days, # 10 tablet, 0 Refills, Acute 11/17/23 15:22:00 EDT, 11/12/23 15:22:00 EST, Tablet, [facility] #[id number], Partial fill upon patient request if the prescription is for a schedule II opioid d... Start Date: 11/12/23 Stop Date: 11/17/23 Status: Ordered ProAir HFA 90 mcg/inh inhalation aerosol with adapter 2, puffs, Inhalation, Every 6 hours, PRN, # 8.5 Gm, Refills 0, Tot. Refills 0, Maintenance, 11/12/23 15:22:00 EST, Aerosol, Route to Pharmacy Electronically, VAPDP_[id number], [facility] #[id number], 165, cm, 11/12/23 15:21:00 EST, Height, 130, k... Start Date: 11/12/23 Status: Ordered Vitamin D3 = 2,000 International_Units, [...] Effective Dates Health Status Clinical Service Informant Mental status change resolved Discharge Diagnosis 10/13/23 KESHIA - Obstructive sleep apnea Discharge Diagnosis 10/13/23 Restless leg Discharge Diagnosis 10/13/23 Vision loss of right eye Discharge Diagnosis 10/13/23 OA - Osteoarthritis of knee - left Discharge Diagnosis 10/13/23 Essential hypertension Discharge Diagnosis 10/13/23 Major depression in partial remission Discharge Diagnosis 10/13/23 Mixed hyperlipidemia Discharge Diagnosis 10/13/23 Osteopenia Discharge Diagnosis 10/13/23 Strep pharyngitis Discharge Diagnosis 11/06/23 Left shoulder pain Discharge Diagnosis 11/06/23 Severe obesity Discharge Diagnosis 11/06/23 Vital Signs Most recent to oldest [Reference Range]: 1 Height 165 cm (11/06/23 12:46 PM) Weight 126.0 kg (11/06/23 12:46 PM) Oxygen Saturation [94-100 %] 95 % (11/06/23 12:46 PM) Pulse Rate [55-90 bpm] 70 bpm (11/06/23 12:46 PM) Body Mass Index [18.5-24.99 kg/m2] 46.28 kg/m2 *>HHI* (11/06/23 12:46 PM) Blood Pressure [90-138/55-84 mm Hg] 127/ 67mm Hg (11/06/23 12:46 PM) Respiratory Rate [16-30 br/min] 20 br/mi n (11/06/23 12:46 PM) Temperature [96.8-100.4 DegF] 98.3 DegF (11/06/23 12:46 PM) Mode of Delivery (Oxygen) Room air (11/06/23 12:46 PM) Blood pressure sites Arm, left (11/06/23 12:46 PM) Temperature Route Oral (11/06/23 12:46 PM) Weight Obtained Via Standing scale (11/06/23 12:46 PM) Social History Social History Type Response Smoking Status Former smoker; Start ed at age: 28; Stopped at age: 38; entered on: 07/25/14 Sex Note * Rhonda Estrada: PERFORM, SIGN, VERIFY Event Display: Patient Education/Instruction Authored Date: [id number] [facility] *BMP So [facility] Wade Clinical Summary Name JUAN JOSE TRACY Age 68 Years 1955 PCP [id number] Visit Date 11/06/2023 12:35:00 Patient Instructions Strep??complete??antibtioitic for strep followup if worsens changes or fails to resolve?? BP at goal continue current plan check BP at home and bring to next visit Physical??therapy for shoulder? Home exercises as discussed Your bone scan shows mild thinning of your bones, you ??have Osteopenia (pre-osteoporosis). You should be taking calcium 600mg and Vitamin D 1000 IU daily. In addition regular weight bearing exercise like walking or resistance (weights) ??at least 3 days a week is important Additional Instructions: Scheduled Appointments?? Future Appointments ?*BMP??So??[place] [address],??[address] ?Phone:??--?Fax:??-- ?Appt. Date:??01/29/2024?12:50 PM ?Scheduled Provider:??Simeon DODSON, Jorge Follow-Up Instructions ?? Diagnosis Mixed hyperlipidemia; Unqualified visual loss, right eye, normal vision left eye; Unilateral primary osteoarthritis, unspecified knee; Obstructive sleep apnea (adult) (pediatric); Major depressive disorder, single episode, in partial remission; Streptococcal pharyngitis; Essential (primary) hypertension; Pain in left shoulder; Morbid (severe) obesity due to excess calories; Personal history of other mental and behavioral disorders; Restless legs syndrome; Other specified disorders of bone density and structure, unspecified site Medications: Please continue your medications until treatment is completed or stopped by your provider. Discuss any questions related to medications with your provider. New Medications [facility] #[id number], [address] [place] [phone], [phone] Amoxicillin (amoxicillin 500 mg oral capsule) 1 capsule Oral twice a day for 10 Days. Refills: 0. Next Dose: Benzonatate (benzonatate 100 mg oral capsule) 1 capsule Oral 3 times a day as needed Cough and Congestion for 7 Days. Refills: 0. Next Dose: Medications to Continue with No Changes These medications were not printed or sent to your pharmacy Amlodipine-Benazepril (amlodipine-benazepril 10 mg-40 mg oral capsule) 1 capsule Oral Daily. Refills: 6. Next Dose: Atorvastatin (atorvastatin 10 mg oral tablet) 1 tab(s) Oral Daily. Refills: 4. Next Dose: Cholecalciferol (Vitamin D3) 2,000 International Unit Oral Daily. Next Dose: Duloxetine (duloxetine 60 mg oral enteric coated capsule) 2 capsule Oral Daily. Refills: 4. Next Dose: Ferrous Sulfate (ferrous sulfate 325 mg oral enteric coated tablet) 1 tab(s) Oral Daily. Next Dose: Allergy Info:?? No Known Medication Allergies; Other Environmental Allergy Medications Given This Visit Future Orders ?Shoulder Min 2 Views Left? Order Date:11/06/23?- Complete on or after?11/06/23 Vital Signs Height 165 cm Weight 126.0 kg BMI 46.28 kg/m2 Blood Pressure 127 mm Hg/67 mm Hg Temperature 98.3 DegF Pulse Rate 70 bpm Respiratory Rate 20 br/min 02 Sat Mode of Delivery 95 %/Room air You can now view a summary of your hospital visit from the comfort of your home through a free online portal called [employer]. [employer] is a website that allows you to securely view your medical information including discharge summary, medications and follow-up visits. ??You can alsosend a secure electronic message to your doctor???s office to request appointments, renew medications or just ask a question. You can enroll at [email or web address] or register during your next office visit. [...] primary care provider, you may find a [facility] provider by calling [facility] Link at [phone]. [facility], in keeping with [facility] guidance, no longer requires face masks for staff, patientsor visitors in most situations. Similar to time spent indoors at other locations, there is the chance that you were exposed to respiratory viruses during your time with us (such as flu or COVID-19).? If you develop symptoms concerning for a viral respiratory infection, please seek testing (and treatment if indicated) from your medical provider or home test kit. For information about the plan of care [...] Primary Care Member Role: PCP Address: Address: [address] [place] [address] [place] Care Team Related Persons Name: BBO TRACY Address: [address] [place] [address] Name: FITO CRANE Address: home [address] [place] [address]
--- OUTSIDE RECORDS SUMMARY | 2024-03-04 07:58 | XMS_ITS | Continuity of Care Document ---
Author Organization [facility] Address [address] [place] [address]- Care Team Providers Care Packaging Coordinator Name Role Phone Avis Smith Primary Care Physi lui Encounter [facility] Date(s): 09/25/23 - 09/25/[address] [address]- Discharge Disposition: A-D/C Home Attending Physician: Dona Yoon DO Admitting Physician: Dona Yoon DO Referring Physician: Not on Staff, Referring MD Allergies, Adverse Reactions, Alerts No Known Medication [...] Exam Date Time Procedure Performing Provider Status 09/25/23 9:36 PM Chest Portable Arina Lopez (Verified) Notes: (Chest Portable) Reason For Exam: Shortness of Breath RESULT: Chest Portable Chest Portable INDICATION: Episode of confusion lasting approximately 5 minutes while speaking with daughter and now is at baseline. Per family her speech was nonsensical. COMPARISON: 06/20/2014. FINDINGS: LINES AND TUBES: None. LUNGS AND PLEURA: Clear lungs. Normal pulmonary vascularity. No pleural effusion. No pneumothorax. HEART, MEDIASTINUM AND EILEEN: Heart is normal in size. Normal mediastinal and hilar contour. BONES AND SOFT TISSUES: No acute abnormality. IMPRESSION: No evidence of acute abnormality. I have personally reviewed the images and I agree with this report. 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 Per family her speech was non-sensical,Patient is A Ox4 at triage time. No unilateral defectis noted; Reason: Other:; Neuro deficit, acute, stroke suspected; Clinical Question(s): Other:; Hematoma Infarction TECHNIQUE: Noncontrast head CT using axial technique and reconstructed in axial and coronal planes.Iterative reconstruction techniques are used to optimize dose and image quality. COMPARISON: None. FINDINGS: Magnetic Tape Composer Operator view findings, lines and tubes: None. BRAIN AND EXTRA-AXIAL SPACES: No parenchymal hemorrhage, midline shift, or mass effect. Tomas-white matter differentiation is wellpreserved. No acute infarct. Ventricles, sulci, and basilar cisterns are normal. No white matter lesions. No subarachnoid hemorrhage. No subdural or epidural collection. CALVARIUM, SKULL BASE, AND SOFT TISSUES: No fractures or suspicious bony lesions. The paranasal sinuses and mastoid air cells are clear. Visualized orbits and globes are intact. The extracranial soft tissues are unremarkable. IMPRESSION: No acute intracranial pathology. WSN: [id number] Ordering Physician: Dona Yoon Dictated By: Jessica Herron MD Dictated Date/Time: 09/25/23 7:40 pm Reviewed By: Jessica Herron MD Signed By: Jessica Herron MD Signed Date/Time: 09/25/23 7:40 pm Transcribed By: AZUL Transcribed Date/Time: 09/25/23 7:36 pm Vital Signs Most recent to oldest [Reference Range]: 1 2 3 Height 165 cm (09/25/23 10:31 PM) 165 cm (09/25/23 9:06 PM) 165 cm (09/25/23 7:33 PM) Weight 130 kg (09/25/23 10:31 PM) 130 kg (09/25/23 7:33 PM) 130 kg (09/25/23 6:52 PM) Oxygen Saturation [94-100 %] 98 % (09/25/23 10:31 PM) 100 % (09/25/23 9:06 PM) 99 % (09/25/23 7:33 PM) Pulse Rate [55-90 bpm] 67 bpm (09/25/23 10:31 PM) 67 bpm (09/25/23 9:06 PM) 79 bpm (09/25/23 7:33 PM) Body Mass Index [18.5-24.99 kg/m2] 47.75 kg/m2 *>HHI* (09/25/23 10:31 PM) 47.75 kg/m2 *>HHI* (09/25/23 7:33 PM) Blood Pressure [90-138/55-84 mm Hg] 129/80mm Hg (09/25/23 10:31 PM) 132/75mm Hg (09/25/23 9:06 PM) 103/69mm Hg (09/25/23 7:33 PM) Respiratory Rate [16-30 br/min] 16 br/min (09/25/23 10:31 PM) 18 br/min (09/25/23 9:06 PM) 19 br/min (09/25/23 7:33 PM) Temperature [96.8-100.4 DegF] 97.4 DegF (09/25/23 10:31 PM) 98.0 DegF (09/25/23 7:33 PM) 97.7 DegF (09/25/23 6:52 PM) Mode of Delivery (Oxygen) Nasal cannula (09/25/23 10:31 PM) Room air (09/25/23 9:06 PM) Room air (09/25/23 7:33 PM) Blood pressure sites Arm, left (09/25/23 10:31 PM) Arm, right (09/25/23 9:06 PM) Temperature Route Oral (09/25/23 10:31 PM) Oral (09/25/23 7:33 PM) Dry Weight 130 kg (09/25/23 10:31 PM) 130 kg (09/25/23 7:33 PM) 130 kg (09/25/23 6:52 PM) Dry Weight Obtained Via Standing scale (09/25/23 6:52 PM) Social History Social History Type Response Smoking Status Former smoker; Start ed at age: 28; Stopped at age: 38; entered on: 07/25/14 Sex Note * Dona Yoon DO: PERFORM, SIGN, VERIFY Event Display: Patient Education Handout Authored Date: * Dona Yoon DO: PERFORM Event Display: Patient Education Leaflets Authored Date: Near-Fainting: Vagal Reaction ?? [id number] Near-Fainting: Vagal Reaction Fainting (syncope) is passing out. It's a temporary loss of consciousness. Near- fainting is feelinglike you are going to faint. But you don't lose consciousness. Fainting and near-fainting can be caused by a vagal reaction (or overstimulation of the vagus nerve). This is something you can't control. It's the body's involuntary response to a physical or emotional stress. This reaction causes a sudden drop in your blood pressure or a slowed heart rate. As a result, not enough blood goes to your brain. Lying down often stops the reaction very quickly. These are symptoms of near-fainting: ??? Feeling lightheaded or like you are going to faint ??? Weak pulse ??? Upset stomach (nausea) ??? Sweating ??? Blurred vision or feeling like your vision is blacking out ??? Trouble breathing ??? Cool and moist skin Causes for near-fainting include: ??? Sudden emotional stress such as fear, pain, panic, or the sight of blood ??? Straining or overexertion, straining while using the toilet, coughing, or sneezing ??? Standing up too quickly or standing up for too long a time ? Some medicines ??? Fluid loss (dehydration) Home care These tips will help you care for yourself at home: ??? Rest today and go back to your normal activities when you feel back to normal. ??? If you get lightheaded or dizzy, lie down right away. Put your legs up so they are higher than your heart. ??? If you are sitting down and feel faint, don't stand up. This may make the feeling worse. ??? Drink plenty of fluids, and don't skip meals. ??? Don't stand for long periods or stay in??hot places. ??? Do what you can to prevent constipation. If you bear down a lot when trying to poop (have a bowel movement), this can trigger a vagal response. Check with your healthcare provider to see if you need tests, such as a tilt- table test, heart rhythm monitoring, or blood tests. Review the medicines you take with your provider and pharmacist. Makesure the symptoms you have are not a side effect of a medicine. ?? Follow-up care Follow up with your healthcare provider, or as advised.?? If you have frequent episodes of near-fainting or vagal reactions, be careful about activities suchas driving. You could harm yourself or others if you were to faint. Don't drive or operate heavy machinery if you are feeling like you may faint. ?? Call 911 Call 911 if any of these occur: ??? Another fainting spell not explained by the common causes listed above ??? Chest, arm, neck, jaw, back, or belly (abdominal) pain ??? Shortness of breath ??? Weakness, tingling, or numbness in 1 side of the face, or 1 arm or leg ??? Slurred speech, confusion, or trouble walking or seeing ??? Seizure ??? Blood in vomit or poop (black or red color) ?? When to get medical care Call your healthcare provider right away if you sometimes have mild lightheadedness, especially when standing up. ?? Last Reviewed Date: 2022 ?? [id number] [employer]. All rights reserved. This information is not intended as a substitute for professional medical care. Always follow your healthcare professional's instructions. ?? * Dona Yoon DO: PERFORM Event Display: Patient Education Leaflets Authored Date: [id number] Near-Fainting with Uncertain Cause ?? [id number] Near-Fainting with Uncertain Cause Fainting (syncope) is a temporary loss of consciousness. It's often called passing out. It happens when blood flow to the brain is reduced. Near-fainting (near-syncope) is like fainting, but you don't fully pass out. Instead, you feel like you are going to pass out, but don't actually lose consciousness. Signs and symptoms These are symptoms of near-fainting or symptoms that can be associated with near-fainting: ??? Feeling lightheaded or??like you are going to faint ??? Weak pulse ??? Nausea ??? Sweating ??? Blurred vision or feeling like your vision is fading ??? Palpitations ??? Chest pain ??? Trouble breathing ??? Feeling cool and clammy ?? Causes Fainting typically happens when your blood pressure or heart rate suddenly drops, and not enough blood flows to your brain. Common minor causes include: ??? Sudden emotional stress such as fear, pain, panic, or the sight of blood ??? Straining or overexertion, such as straining while using the toilet, vomiting, coughing, or sneezing ??? Standing up too quickly, or standing up for too long a time More serious causes include: ??? Very slow, fast, or irregular heart rate (arrhythmia) ??? Dehydration ??? Significant blood loss ??? Medicines, or a recent change in medicines. Medicines that can cause fainting include blood pressure or heart medicines. ??? Heart attack ??? Heart valve problems Remember, even minor causes can become serious if you fall and injure yourself, or are driving. Youmay need more tests. It's very important that you follow up with your doctor as advised. ?? Home care These guidelines will help you care for yourself at home: ??? Rest today. You can resume most of your normal activities as soon as you are feeling back to normal. ??? If you become lightheaded or dizzy, lie down right away or sit with your head between yourknees. ??? Drink plenty of fluids and don't skip meals. Because the exact cause of your near fainting spell is not known, another spell could occur withoutwarning. To stay safe, don't drive a car or use dangerous equipment. Don't take a bath alone. Don'tswim alone. You can resume these activities when your healthcare provider says that you are no longer in danger of having a near-fainting spell. ?? Follow-up care Follow up with your healthcare provider, or as advised. Call 911 Call 911 or get emergency care if any of the following occur: ??? Another near- fainting or full fainting spell occurs, and it's not explained by the common minor causes listed above ??? Chest, arm, neck, jaw, back or abdominal pain ??? Shortness of breath ??? Weakness, tingling, or numbness in one side of the face, or in one arm or leg ??? Slurred speech, confusion, trouble walking or seeing ??? Seizure ?? When to get medical advice Call your healthcare provider for advice if any of these occur: ??? Changes in your medicines ??? You start to have near fainting on a more frequent basis ?? Last Reviewed Date: 2021 ?? [id number] [employer]. All rights reserved. This information is not intended as a substitute for professional medical care. Always follow your healthcare professional's instructions. ?? Patient Care team information Care Team Personnel Name: Avis Smith Position: [facility] PCO Associate Professional Member Role: PCP Address: Address: [address] [place] [address]- Care Team Related Persons Name: BOB TRACY Address: home [address] [place] [address] Name: FITO CRANE Address: home [address] [place] [address]
--- OUTSIDE RECORDS SUMMARY | 2024-03-04 07:58 | XMS_ITS | Continuity of Care Document ---
Author Organization [facility] Address [address] [place] [address]- Care Team Providers Care Cosmetology Educator Name Role Phone Avis Smith Primary Care Physi lui Encounter [facility] [place] Date(s): 05/21/23 - 06/20/23 [facility] Adult [address] [place] [address]- Allergies, Adverse Reactions, Alerts Substance Reaction Severity [...] # 30 capsule, 0 Refills,Maintenance, 06/19/23 12:56:[id number], [facility], TAKE 1 CAPSULE BY MOUTH DAILY NEW MEDICATION TO. FOLLOW, 165.71, cm, 04/09/23 11:2... Start Date: 06/19/23 Status: Ordered atorvastatin 10 mg oral tablet 1 tablet = 10 mg, By Mouth, Daily, # 90 tablet, 1 Refills, Maintenance, 09/17/22 11:15:00 [id number], Partial fill upon patient request if the prescription is for a schedule II opioid drug., 167.64, cm, 07/26/22 10:53:00 EST, Height Start Date: 09/17/22 Status: Ordered duloxetine 60 mg oral enteric coated capsule 2 capsule, By Mouth, Daily, # 180 capsule, 1 Refills, Maintenance, 06/12/23 9:27:00 EDT, [facility] #[id number], 165.71, cm, 04/09/23 11:24:00 EDT, Height Start [...] Care Team Personnel Name: Avis Smith Position: [facility] PCO Associate Professional Member Role: PCP Address: Address: [address] [place] [address]- Care Team Related Persons Name: BOB TRACY Address: home [address] [place] [address] Name: FITO CRANE Address: home [address] [place] [address]
--- OUTSIDE RECORDS SUMMARY | 2024-03-04 07:58 | XMS_ITS | Continuity of Care Document ---
Author Organization [facility] Maximiliano Simental [facility] Address [address] [place] [address]- Care Team Providers Care Hand Candle Dipper Name Role Phone Jorge Hendrix DO Primary Care Physician [phone] Encounter [facility] Date(s): 10/03/23 - 11/02/23 [facility] Adult [address] [place] [address]- Allergies, Adverse Reactions, Alerts No Known Medication [...] Team Personnel Name: Jorge Hendrix DO [facility] Phys[facility] - Primary Care Member Role: PCP Address: Address: [address] [place] [address]- Care Team Related Persons Name: BOB TRACY Address: [address] [place] [address] Name: FITO CRANE Address: [address] [place] [address]
--- OUTSIDE RECORDS SUMMARY | 2024-03-04 07:58 | XMS_ITS | Continuity of Care Document ---
Author Organization [facility] [place] [address] [facility], [address] [place] [address]- Care Team Providers Care Type Inspector Name Role Phone Jorge Hendrix DO Primary Care Physician Encounter 07/10/23 - 10/11/23 [facility] [address], [address] [place] [address]- Attending Physician: Avis Smith Admitting Physician: Avis Smith Referring Physician: Avis Smith Allergies, Adverse Reactions, Alerts No Known Medication [...] Name: Jorge Hendrix DO [facility] Physician - Primary Care Member Role: PCP Address: Address: [address] [place] [address]- Care Team Related Persons Name: BOB TRACY Address: [address] [place] [address] Name: FITO CRANE Address: home [address] [place] [address]
--- OUTSIDE RECORDS SUMMARY | 2024-03-04 07:58 | XMS_ITS | Continuity of Care Document ---
Author Organization [facility] Address [address] [place] [address]- Care Team Providers Care Computer Compositor Name Role Phone Avis Smith Primary Care Physi [facility] [place] [facility] [place] 12[place]/22 [facility] Adult [address] [place] [address]- Attending Physician: Avis Smith Referring Physician: Flakito Panda MD Allergies, Adverse Reactions, Alerts Substance Reaction [...] 90 tablet, 1 Refills, Maintenance, 09/17/22 11:15:00 [id number], Partial fill upon patient request if the prescription is for a schedule II opioid drug., 167.64, cm, 07/26/22 10:53:00 EST, Height Start Date: 09/17/22 Status: Ordered duloxetine 60 mg oral enteric coated capsule 2 capsule, By Mouth, Daily, # 180 capsule, 3 Refills, Maintenance, 07/03/22 13:13:00 EDT, [facility] #[id number], 167.64, cm, 07/03/22 12:40:00 EDT, Height Start [...] Care Team Personnel Name: Avis Smith Position: [facility] PCO Associate Professional Member Role: PCP Address: Address: [address] [place] [address] [place] [address]- Care Team Related Persons Name: FLAKITO TRACY Address: home [address] [place] [address] Name: FITO CRANE Address: home [address] [place] [address]
--- OUTSIDE RECORDS SUMMARY | 2024-03-04 07:59 | XMS_ITS | Continuity of Care Document ---
Author Organization [facility] Address [address] [place] [address]- Care Team Providers Care Amf Mechanic Name Role Phone Avis Smith Primary Care Physi [facility] Encounter [facility] [place] Date(s): 07/11/23 - 07/18/23 [facility] Adult [address] [place] [address]- Encounter Diagnosis Hypertension(Discharge Diagnosis) - 07/11/23 Attending Physician: Avis Smith Allergies, Adverse Reactions, [...] 2 Refills, Maintenance, 07/11/23 9:18:00 EDT, Capsule, [facility] #[id number], Partial fill upon patient request if the prescription is for a schedule II opioid drug., 1 capsule By Mouth Daily, 165.71, cm... Start Date: 07/11/23 Status: Ordered atorvastatin 10 mg oral tablet 1 tablet = 10 mg, By Mouth, Daily, # 90 tablet, 1 Refills, Maintenance, 07/11/23 9:34:00 EDT, [facility] #[id number], Partial fill upon patient request if the prescription is for a schedule II opioid drug., 165.71, cm, 07/11/23 9:12:00 EDT, Height Start Date: 07/11/23 Status: Ordered duloxetine 60 mg oral enteric coated capsule 2 capsule, By Mouth, Daily, # 180 capsule, 1 Refills, Maintenance, 06/12/23 9:27:00 EDT, [facility] #[id number], 165.71, cm, 04/09/23 11:24:00 EDT, Height Start [...] Diagnosis Diagnosis Type Effective Dates Health Status inical Service Informant Hypertension Discharge Diagnosis 07/11/23 Vital Signs Most recent to oldest [Reference Range]: 1 2 Height 165.71 cm (07/11/23 9:12 AM) 165.71 cm (07/11/23 8:59 AM) Weight 139.5 kg (07/11/23 8:59 AM) Oxygen Saturation [94-100 %] 94 % (07/11/23 8:59 AM) Pulse Rate [55-90 bpm] 90 bpm (07/11/23 8:59 AM) Body Mass Index [18.5-24.99 kg/m2] 50.8 kg/m2 *>HHI* (07/11/23 8:59 AM) Blood Pressure [90-138/55-84 mm Hg] 144/ 93mm Hg *H* (07/11/23 9:12 AM) 142/91mm Hg *H* (07/11/23 8:59 AM) Temperature [96.8-100.4 DegF] 98.2 DegF (07/11/23 8:59 AM) Mode of Delivery (Oxygen) Room air (07/11/23 8:59 AM) Blood pressure sites Arm, left (07/11/23 9:12 AM) Arm, left (07/11/23 8:59 AM) Temperature Route Oral (07/11/23 8:59 AM) Weight Obtained Via Standing scale (07/11/23 8:59 AM) Social History Social History Type Response Smoking Status Former smoker; Start ed at age: 28; Stopped at age: 38; entered on: 07/25/14 Sex Note * Rhonda Estrada: PERFORM, SIGN, VERIFY Event Display: Patient Education/Instruction Authored Date: [id number] [facility] *BMP So Hola Wade Clinical Summary Name JUAN JOSE TRACY Age 67 Years 1955 PCP Avis Smith PCP Visit Date 07/11/2023 08:52:00 Additional Instructions: Scheduled Appointments?? Future Appointments ?*[facility] ?Phone:??--?Fax:??-- ?Appt. Date:??07/17/2023?10:30 AM ?Scheduled Provider:??Cristina Navas ?[facility] [address]??[place],??[place],??[address] ?Phone:??[phone]?Fax:??-- ?Appt. Date:??07/18/2023?2:15 PM ?Scheduled Provider:??[facility] ?[facility] [address]??[place],??[place],??[address] ?Phone:??[phone]?Fax:??-- ?Appt. Date:??09/11/2023?10:15 AM ?Scheduled Provider:??LM Morales BD Follow-Up Instructions ?? Diagnosis Medications: Please continue your medications until treatment is completed or stopped by your provider. Discuss any questions related to medications with your provider. Medications to Continue Taking That Have Changed [id number], [address] [place] [phone], [phone] - Amlodipine-Benazepril (amlodipine-benazepril 10 mg-40 mg oral capsule) 1 capsule Oral Daily. Refills: 2. Next Dose: Medications to Continue with No Changes These medications were not printed or sent to your pharmacy Atorvastatin (atorvastatin 10 mg oral tablet) 1 tab(s) Oral Daily. Refills: 1. Next Dose: Cholecalciferol (Vitamin D3) 2,000 International Unit Oral Daily. Next Dose: Duloxetine (duloxetine 60 mg oral enteric coated capsule) 2 capsule Oral Daily. Refills: 1. Next Dose: Ferrous Sulfate (ferrous sulfate 325 mg oral enteric coated tablet) 1 tab(s) Oral Daily. Next Dose: Allergy Info:?? Other Environmental Allergy Medications Given This Visit Future Orders ?No future orders Vital Signs Height 165.71 cm Weight 139.5 kg BMI 50.8 kg/m2 Blood Pressure 144 mm Hg/93 mm Hg Temperature 98.2 DegF Pulse Rate 90 bpm Respiratory Rate 02 Sat Mode of Delivery 94 %/Room air You can now view a summary of your hospital visit from the comfort of your home through a free online portal called [facility]. [facility] is a website that allows you to securely view your medical information including discharge summary, medications and follow-up visits. ??You can alsosend a secure electronic message to your doctor???s office to request appointments, renew medications or just ask a question. You can enroll at [email or web address] or register during your next office visit. [...] primary care provider, you may find a [facility] provider by calling [facility] Link at [phone]. [facility], in keeping with [facility] guidance, no longer requires face masks [...] Care Team Personnel Name: Avis Smith Position: [facility] PCO Associate Professional Member Role: PCP Address: Address: [address] [place] [address]- Care Team Related Persons Name: BOB TRACY Address: home [address] [place] [address] Name: FITO CRANE Address: [address] [place] [address]
--- OUTSIDE RECORDS SUMMARY | 2024-03-04 07:59 | XMS_ITS | Continuity of Care Document ---
Author Organization [facility] Maximiliano Simental [facility] Address [address] [place] [address]- Care Team Providers Care Patch Setter Name Role Phone Jorge Hendrix DO Primary Care Physician [place] [facility] [place]12[place]23 - 11/19/23 [facility] Maximiliano Keaneley Adult [address] [place] [address]- Encounter Diagnosis Cough(Discharge Diagnosis) - 11/12/23 Sore throat(Discharge Diagnosis) - 11/12/23 Attending Physician: Jorge Hendrix DO Allergies, Adverse [...] 15:22:00 EST, Aerosol, Route to Pharmacy Electronically, NCPDP[facility]ID-[id number][id number], 165, cm, 11/12/23 15:21:00 EST, Height, 130, [...] Diagnosis Diagnosis Type Effective Dates Health Status Clini dorita Service Informant Cough Discharge Diagnosis 11/12/23 Sore throat Discharge Diagnosis 11/12/23 Vital Signs Most recent to oldest [Reference Range]: 1 Height 165 cm (11/12/23 3:21 PM) Social History Social History Type Response Smoking Status Former smoker; Start ed at age: 28; Stopped at age: 38; entered on: 07/25/14 Sex Patient Care team information Care Team Personnel Name: Jorge Hendrix DO Position: S Physician - Primary Care Member Role: PCP Address: Address: [address] [place] [address]- Care Team Related Persons Name: BOB TRACY Address: home [address] [place] [address] [place] Name: FITO CRANE Address: home [address] [place] [address]
--- OUTSIDE RECORDS SUMMARY | 2024-03-04 07:59 | XMS_ITS | Continuity of Care Document ---
Author Organization [facility] Hola Philip lt Address [address] [place] [address]- Care Team Providers Care Public Administration Teacher Name Role Phone Sadie DUMONT, Eris Huff Primary Care Physician Encounter [facility] Date(s): 05/18/21 - 06/17/21 [facility] Hola Adult [address] [place] [address]- Allergies, Adverse Reactions, Alerts Substance Reaction Severity [...] tablet, 3 Refills, Maintenance, 04/18/21 17:16:00 EDT, [facility] #[id number], 167.64, cm, 12/28/19 11:56:00 EDT, Height, 135, kg, 12/28/19 11:56:00 EDT, Dry Weight Start Date: 04/18/21 Status: Ordered duloxetine 60 mg oral enteric coated capsule 2 capsule, By Mouth, Daily, # 180 capsule, 3 Refills, Maintenance, 04/18/21 17:16:00 EDT, [facility][id number], 167.64, cm, 12/28/19 11:56:00 EDT, Height, 135, [...]
--- OUTSIDE RECORDS SUMMARY | 2024-03-04 07:59 | XMS_ITS | Continuity of Care Document ---
Author Organization [facility] Maximiliano Simental Philip lt Address [address] [place] [address]- Care Team Providers Care Steno Typist Name Role Phone Avis Smith Primary Care Physi lui Encounter [facility] Date(s): 04/09/23 - 04/16/23 [facility] Hola Adult [address] [place] [address]- Encounter Diagnosis Severe obesity(Discharge Diagnosis) - 04/09/23 KESHIA - Obstructive sleep apnea(Discharge Diagnosis) - 04/09/23 Hyperlipidemia - ASCVD risk 3.5% as of 11/04/16(Discharge Diagnosis) - 04/09/23 Iron deficiency(Discharge Diagnosis) - 04/09/23 Anemia(Discharge Diagnosis) - 04/09/23 Depression, major(Discharge Diagnosis) - 04/09/23 Medicare annual wellness visit, subsequent(Discharge Diagnosis) - 04/09/23 Hypertension(Discharge Diagnosis) - 04/09/23 Vision loss of right eye(Discharge Diagnosis) - 04/09/23 Attending Physician: Avis Smith Allergies, Adverse Reactions, [...] Status Refusal Reason Influenza Virus Vaccine (oldterm) 1/24/20 Not Giv en Patient Refuses Influenza Virus Vaccine (oldterm) 07/27/19 Not Giv en Parent Or Guardian Refuses influenza virus vaccine, inactivated 06/21/14 Not Given Patient Refuses Medications atorvastatin 10 mg oral tablet 1 tablet = 10 mg, By Mouth, Daily, # 90 tablet, 1 Refills, Maintenance, 09/17/22 11:15:00 EST, [facility] #[id number], Partial fill upon patient request if the prescription is for a schedule II opioid drug., 167.64, cm, 07/26/22 10:53:00 EST, Height Start Date: 09/17/22 Status: Ordered duloxetine 60 mg oral enteric coated capsule 2 capsule, By Mouth, Daily, # 180 capsule, 3 Refills, Maintenance, 07/03/22 13:13:00 EDT, [id number], 167.64, cm, 07/03/22 12:40:00 EDT, Height Start [...] Effective Dates Health Status Clinical Service Informant Severe obesity Discharge Diagnosis 04/09/23 KESHIA - Obstructive sleep apnea Discharge Diagnosis 04/09/23 Hyperlipidemia - ASCVD risk 3.5% as of 11/04/16 Discharge Diagnosis 04/09/23 Iron deficiency Discharge Diagnosis 04/09/23 Anemia Discharge Diagnosis 04/09/23 Depression, major Discharge Diagnosis 04/09/23 Medicare annual wellness visit, subsequent Discharge Diagnosis 04/09/23 Hypertension Discharge Diagnosis 04/09/23 Vision loss of right eye Discharge Diagnosis 04/09/23 Vital Signs Most recent to oldest [Reference Range]: 1 2 3 Height 165.71 cm (04/09/23 11:24 AM) 165.71 cm (04/09/23 10:37 AM) 165.71 cm (04/09/23 10:27 AM) Weight 138.4 kg (04/09/23 10:27 AM) Oxygen Saturation [94-100 %] 97 % (04/09/23 10:27 AM) Pulse Rate [55-90 bpm] 86 bpm (04/09/23 10:27 AM) Body Mass Index [18.5-24.99 kg/m2] 50.4 kg/m2 *>HHI* (04/09/23 10:27 AM) Blood Pressure [90-138/55-84 mm Hg] 146/98mm Hg *H* (04/09/23 11:24 AM) 166/105mm Hg *H* (04/09/23 10:37 AM) 170/114mm Hg *H* (04/09/23 10:27 AM) Temperature [96.8-100.4 DegF] 96.9 DegF (04/09/23 10:27 AM) Mode of Delivery (Oxygen) Room air (04/09/23 10:27 AM) Blood pressure sites Arm, left (04/09/23 11:24 AM) Arm, left (04/09/23 10:37 AM) Arm, left (04/09/23 10:27 AM) Temperature Route Temporal (04/09/23 10:27 AM) Weight Obtained Via Standing scale (04/09/23 10:27 AM) Social History Social History Type Response Smoking Status Former smoker; Start ed at age: 28; Stopped at age: 38; entered on: 07/25/14 Sex Note * Marii Franco: PERFORM, SIGN, VERIFY Event Display: Patient Education/Instruction Authored Date: [id number] [facility] *JUVENAL Wade Clinical Summary Name JUAN JOSE TRACY Age 67 Years 1955 PCP Avis Smith PCP Visit Date 04/09/2023 10:14:00 Patient Instructions Schedule appointment with therapist here for CBT to help with self care Schedule 3 month f/u with PCP Fasting labs to be done on Friday Start Blood pressure medication after labs are back Call for appointment for Mammogram and bone density Call to reestablish care with [facility] Additional Instructions: Scheduled Appointments?? Future Appointments ?No Future Appointments Scheduled Follow-Up Instructions ?? With: Address: When: Avis Smith Within 3 months Comments: routine f/u With: Address: When: Cristina Navas Within 2 to 5 weeks Comments: Has some mood issues and would like CBT. Diagnosis Iron deficiency; Essential (primary) hypertension; Major depressive disorder, single episode, unspecified; Encounter for general adult medical examination without abnormal findings; Obstructive sleepapnea (adult) (pediatric); Hyperlipidemia, unspecified; Morbid (severe) obesity due to excess calories; Unqualified visual loss, right eye, normal vision left eye; Anemia, unspecified; Essential (primary) hypertension Medications: Please continue your medications until treatment is completed or stopped by your provider. Discuss any questions related to medications with your provider. Medications to Continue with No Changes These [...] Allergy Medications Given This Visit Future Orders ?MM Digital Mammo Screening? Order Date:04/09/23?- Complete on or after?08/02/23 ?Dexa Bone Density (Axial)? Order Date:04/09/23?- Complete on or after?04/09/23 Vital Signs Height 165.71 cm Weight 138.4 kg BMI 50.4 kg/m2 Blood Pressure 166 mm Hg/105 mm Hg Temperature 96.9 DegF Pulse Rate 86 bpm Respiratory Rate 02 Sat Mode of Delivery 97 %/Room air You can now view a summary of your hospital visit from the comfort of your home through a free online portal called [facility]. [facility] is a website that allows you to securely view your medical information including discharge summary, medications and follow-up visits. ??You can alsosend a secure electronic message to your doctor???s office to request appointments, renew medications or just ask a question. You can enroll at [email or web address] or register during your next office [...] primary care provider, you may find a [facility] provider by calling [facility] [facility] at [phone]. For information about the plan of care including goals and instructions for your diagnosis, please see the patient education orders section of this document. Patient Education Materials?? The content of this educational material or handout may have been modified, supplemented, or adapted from its original content and format to support your individualized medical care. 4 Steps for Eating Healthier Changing the way you eat can improve your health. It can lower your cholesterol and blood pressure,and help you stay at a healthy weight. Your diet doesn???t have to be bland and boring to be healthy. Just watch your calories and follow these steps: 1. Eat fewer unhealthy fats ??? Choose more fish and lean meats instead of fatty cuts of meat. ??? Skip butter and lard, and use less margarine. ??? Pass on foods that have palm, coconut, or hydrogenated oils. ??? Eat fewer high-fat dairy foods like cheese, ice cream, and whole milk. ??? Get a heart-healthy cookbook and try some low-fat recipes. 2.??Go light on salt ??? Keep the saltshaker off the table. ??? Limit high-salt ingredients, such as soy sauce, bouillon, and garlic salt. ??? Instead of adding salt when cooking, season your food with herbs and flavorings. Try lemon, garlic, and onion. ??? Limit convenience foods, such as boxed or canned foods and restaurant food. ??? Read food labels and choose lower-sodium options. 3. Limit sugar ??? Pause before you add sugars to pancakes, cereal, coffee, or tea. This includes white and brown table sugar, syrup, honey, and molasses. Cut your usual amount by half. ??? Use non-sugar sweeteners. Stevia, aspartame, and sucralose can satisfy a sweet tooth without adding calories. ??? Swap out sugar-filled soda and other drinks. Buy sugar-free or low-calorie beverages. Remember water is always the best choice. ??? Read labels and choose foods with less added sugar. Keep in mind that dairy foods and foods with fruit will have some natural sugar. ??? Cut the sugar in recipes by 1/3 to 1/2. Boost the flavor with extracts like almond, vanilla, ororange. Or add spices such as cinnamon or nutmeg. 4. Eat??more fiber ??? Eat fresh fruits and vegetables every day. ??? Boost your diet with whole grains. Go for oats, whole-grain rice, and bran. ??? Add beans and lentils to your meals. ??? Drink more water to match your fiber increase. This is to help prevent constipation. ?? 4656-7821 [employer]. [address] [place] [address], [place] [address]. All rights reserved. This information is not intended as a substitute for professional medical care. Always follow your healthcare professional's instructions. Prevention Guidelines, Women Ages 65 and Older Screening tests and vaccines are an important part of managing your health. Health counseling is essential, too. Below are guidelines for these, for women ages 65 and older. Talk with your healthcareprovider to make sure you???re up to date on what you need. Screening Who needs it How often Type 2 diabetes or prediabetes All adults beginning at age 45 and adults without symptoms at any age who are overweight or obese and have 1 or more additional risk factors for diabetes At least every 3 years Alcohol misuse All women in this age group At routine exams Blood pressure All women in this age group Every 2 years if your blood pressure is less than 120/80 mm Hg; yearly if your systolic blood pressure is 120 to 139 mm Hg, or your diastolic blood pressure reading is 80 to 89 mm Hg Breast cancer All women in this age group Yearly mammogram and clinical breast exam1 Cervical cancer Only women who had abnormal screening results before age 65 Talk with your healthcare provider Chlamydia Women at increased risk for infection At routine exams Colorectal cancer All women in this age group1 Flexible sigmoidoscopy every 5 years, or colonoscopy every 10 years, or double- contrast barium enema every 5 years; yearly fecal occult blood test or fecal immunochemical test; or a stool DNA test asoften as your healthcare provider advises; talk with your healthcare provider about which tests arebest for you Depression All women in this age group At routine exams Gonorrhea Sexually active women at increased risk for infection At routine exams Hepatitis C Anyone at increased risk; 1 time for those born between 1945 and 1965 At routine exams High cholesterol or triglycerides All women in this age group who are at risk for coronary artery disease At least every 5 years HIV Women at increased risk for infection ??? talk with your healthcare provider At routine exams Lung cancer Adults age 55 to 80 who have smoked Yearly screening in smokers with 30 pack-year history of smoking or who quit within 15 years Obesity All women in this age group At routine exams Osteoporosis All women in this age group Bone density test at age 65, then follow-up as advised by your healthcare provider Syphilis Women at increased risk for infection ??? talk with your healthcare provider At routine exams Thyroid-Stimulating Hormone (TSH) All women in this age group Every 5 years Tuberculosis Women at increased risk for infection ??? talk with your healthcare provider Ask your healthcare provider Vision All women in this age group Every 1 to 2 years; if you have a chronic health condition, ask your healthcare provider if you need exams more often Vaccine Who needs it How often Chickenpox (varicella) All women in this age group who have no record of this infection or vaccine 2 doses; second dose should be given at least 4 weeks after the first dose Hepatitis A Women at increased risk for infection ??? talk with your healthcare provider 2 doses given 6 months apart Hepatitis B Women at increased risk for infection ??? talk with your healthcare provider 3 doses over 6 months; second dose should be given 1 month after the first dose; the third dose should be given at least 2 months after the second dose and at least 4 months after the first dose Haemophilus influenza??Type B (HIB) Women at increased risk for infection ??? talk with your healthcare provider 1 to 3 doses Influenza (flu) All women in this age group Once a year Pneumococcal??conjugate vaccine (PCV13)??and pneumococcal polysaccharide??vaccine (PPSV23) All women in this age group 1 dose of each vaccine Tetanus/diphtheria/pertussis (Td/Tdap) booster All women in this age group Td every 10 years, or a one-time dose of Tdap instead of a Td booster after age 18, then Td every 10 years Zoster All women in this age group 1 dose Counseling Who needs it How often Diet and exercise Women who are overweight or obese When diagnosed, and then at routine exams Fall prevention (exercise and vitamin D supplements) All women in this age group At routine exams Sexually transmitted infection prevention Women at increased risk for infection ??? talk with your healthcare provider At routine exams Use of daily aspirin Women ages 55 and up in this age group who are at risk for cardiovascular health problems such as stroke When your risk is known Use of tobacco and the health effects it can cause All women in this age group Every exam 1American Cancer Society ?? 9312-1088 [employer]. [address] [place] [address], [place] [address]. All rights reserved. This information is not intended as a substitute for professional medical care. Always follow your healthcare professional's instructions. Patient Care team information Care Team Personnel Name: Avis Smith Position: [facility] PCO Associate Professional Member Role: PCP Address: Address: [address] [place] [address]- Care Team Related Persons Name: BOB TRACY Address: [address] [place] [address] [place] Name: FITO CRANE Address: home [address] [place] [address]
== END 2024-03-03 09:44 | disposition home or self-care (01) | DRG 620 ==
LOC: HO.SSSA 11:10 → HO.S3 11:31
PROVIDERS: Physician Assistant Surgical; Admitting Provider Surgery; PCP Internal Medicine Cardiovascular Disease; Visit Provider Surgery
PROC: 0DQ64ZZ Repair Stomach, Percutaneous Endoscopic Approach (ICD-10-PCS; CPT 43771; principal; 2024-03-02 07:30)
DX: E66.01 Morbid (severe) obesity due to excess calories (principal); K44.0 Diaphragmatic hernia with obstruction, without gangrene; I10 Essential (primary) hypertension; G47.33 Obstructive sleep apnea (adult) (pediatric); E78.5 Hyperlipidemia, unspecified; F41.9 Anxiety disorder, unspecified; M19.90 Unspecified osteoarthritis, unspecified site; F32.A Depression, unspecified; K74.00 Hepatic fibrosis, unspecified; K76.0 Fatty (change of) liver, not elsewhere classified; Z68.42 Body mass index [BMI] 45.0-49.9, adult; Z98.84 Bariatric surgery status; Z87.891 Personal history of nicotine dependence; Z79.899 Other long term (current) drug therapy
CPT/HCPCS: 36415; 80048; 85014; 85018; 85025; 86850; 86900; 86901; 88304; 88305; 88307; 88342; C9088; C9145; J0131; J0690; J1100; J1170; J2250; J2405; J2704; J2795; J3010; J7120

== ENCOUNTER → 2024-03-02 05:53 | Outpatient (BNV) | payer OTHER, SELFPAY | PROVIDERS: Admitting Provider Surgery; PCP Internal Medicine Cardiovascular Disease; Visit Provider Surgery | DX: E66.01 Morbid (severe) obesity due to excess calories (principal); I10 Essential (primary) hypertension; E78.5 Hyperlipidemia, unspecified; M19.90 Unspecified osteoarthritis, unspecified site; F32.A Depression, unspecified; F41.9 Anxiety disorder, unspecified; K76.0 Fatty (change of) liver, not elsewhere classified; K74.00 Hepatic fibrosis, unspecified; Z98.84 Bariatric surgery status; Z98.890 Other specified postprocedural states; Z87.19 Personal history of other diseases of the digestive system; K44.9 Diaphragmatic hernia without obstruction or gangrene | CPT/HCPCS: 43281; 43775; 99024; 99499 ==

== ENCOUNTER 2024-03-09 10:26 | Outpatient (AMB) | payer OTHER, SELFPAY ==
--- NOTE | 2024-03-09 10:55 | A.OFFVIS_ITS ---
VS Expanded 03/09/24 11:07 BP 118/71 Blood Pressure Location Rt brachial Blood Pressure Position Sitting Pulse 71 Pulse Source Pulse Oximeter Temp 96.5 F L Temperature Source Temporal Artery Scan Pulse Oximetry 96 Oxygen Delivery Method Room Air Height 5 ft 5 in Weight 252 lb BMI 41.9 Body Fat % 48.1 Body Fat Mass 121.2 Fat Free Mass 130.8 Visceral Fat Rating 17.0 Body Water % 36.7 Body Water Mass 92.6 Muscle Mass/Score 124.2 Basal Metabolic Rate/Score 1,844 Intake Visit Reasons: (OV) PO LSG 03/02/24 Allergies No Known Allergies Allergy (Verified 03/09/24 11:01) Medication List - Last Reconciled 03/09/24 by HERMAN Alex amlodipine-benazepril 10-40 mg 1 cap PO DAILY atorvastatin 10 mg PO DAILY duloxetine 120 mg PO DAILY ondansetron 4 mg PO Q12H pantoprazole 40 mg PO DAILY sucralfate 10 mL PO BID tizanidine 1 - 4 mg PO BEDTIME PRN HPI Comments Details: Pt is 1 week s/p LSG 03/02/2024. No bowel movement since surgery. No N/V, abdominal pain. Has ridden stationary bike at home for exercise, 5 miles each da y burning 200+ calories. Tolerating 3 protein shakes per day, 1 scoop Celebrate 4:1 in each. Staying hydrated with 60oz day, using Gatorade Zero. [facility] Medical History (Updated 03/06/24 @ 00:02 by Dillon Boyd) Pre-op evaluation History of blood transfusion (~2013) Murmur Intestinal malabsorption Depression DJD (degenerative joint disease) Hyperlipidemia Anxiety Sleep apnea HTN (hypertension) Retinal detachment Surgical History Hx of detached retina repair (~2019) Hx of appendectomy Hx of gastric bypass Hx of dilation and curettage Hx of colonoscopy Hx of endoscopy History of delivery Hx of total knee replacement Hx of carpal tunnel repair Family History Mother CHF (congestive heart failure) A-fib Father No problems noted. Daughter No problems noted. Daughter No problems noted. Social History (Reviewed 07/02/24 @ 11:01 by BRINDA Chase Household Members: Spouse Household Members Other:: 2-200# dogs-Great [place] Housing: House Are you a primary pulmonary care nurse to a significant other at home: No Do you presently have visiting nurse or other home services: No 75 years or older and lives alone: No Alcohol intake: current Alcohol intake frequency: holidays/special occasions only Comment: aware of trip hazaed Patient Tobacco Use Status: Former Tobacco user Tobacco use type: Cigarette Years Smoked: quit 1988 service: No Physical Exam Vital Signs: Last Vital Signs Temp 96.5 F L 03/09/24 11:07 Pulse 71 03/09/24 11:07 BP 118/71 03/09/24 11:07 Pulse Ox 96 03/09/24 11:07 Oxygen Delivery Method Room Air 03/09/24 11:07 BMI result Body Mass Index 41.9 Assessment & Plan Assessment & Plan (1) S/P laparoscopic sleeve gastrectomy: Code(s): Z98.84 - Bariatric surgery status Category: Medical (2) Morbid obesity: Code(s): E66.01 - Morbid (severe) obesity due to excess calories Category: Medical Plan Colace to pharmacy, pt can take MoM or Miralax to help with constipation. Pt may resume iron. May shower tomorrow but no bath or submersion of abdomen in water. May start exercise in 2 days.? No abdominal exercises x 6 weeks. Abdominal binder for the next 2 weeks with activity or exercise. Continue meal plan per Dr Dominguez until next f/u in 2 weeks. Reviewed pantoprazole and carafate dosing. Reminded of the pace of drinking 2 mL/min or 1oz per 15 min. Will be emailed link for post op video for review. RTC 2 weeks. Patient is morbidly obese and is not considered stable at this time. I spent a total of 30 minutes reviewing/updating records, examining the patient and counseling the patient on weight management as detailed above. Medications: New docusate sodium 100 mg PO DAILY 60 caps 1RF
[2024-03-09 11:07] VITALS: BP 118/71; PULSE 71; TEMP 35.8; O2SAT 96; BMI 41.9
== END 2024-03-09 11:40 | disposition home or self-care (01) ==
PROVIDERS: PCP Internal Medicine Cardiovascular Disease; Visit Provider Physician Assistant Surgical
DX: E66.01 Morbid (severe) obesity due to excess calories (principal); Z98.84 Bariatric surgery status
CPT/HCPCS: 99024

== ENCOUNTER → 2024-03-09 10:26 | Outpatient (BNVA) | payer OTHER, SELFPAY | PROVIDERS: PCP Internal Medicine Cardiovascular Disease; Visit Provider Physician Assistant Surgical ==

== ENCOUNTER 2024-04-01 11:46 | Outpatient (AMB) | payer OTHER, SELFPAY ==
--- NOTE | 2024-04-01 11:49 | MHC.OFFVISWM ---
VS Expanded 04/01/24 11:59 BP 111/74 Blood Pressure Location Rt brachial Blood Pressure Position Sitting Pulse 82 Pulse Source Pulse Oximeter Temp 97.2 F Temperature Source Temporal Artery Scan Pulse Oximetry 97 Oxygen Delivery Method Room Air Height 5 ft 5 in Weight 240 lb 3.2 oz BMI 40.0 Body Fat % 45.3 Body Fat Mass 108.6 Fat Free Mass 131.4 Visceral Fat Rating 15.0 Body Water % 38.8 Body Water Mass 93.0 Muscle Mass/Score 124.8 Basal Metabolic Rate/Score 1,831 Intake Visit Reasons: (OV) PO LSG 03/02/24 Truckman Required: No Allergies No Known Allergies Allergy (Verified 04/01/24 12:04) Medication List - Last Reconciled 04/01/24 by HERMAN Gonzales amlodipine-benazepril 10-40 mg 1 cap PO DAILY atorvastatin 10 mg PO DAILY docusate sodium 200 mg PO DAILY duloxetine 120 mg PO DAILY pantoprazole 40 mg PO DAILY sucralfate 10 mL PO BID tizanidine 1 - 4 mg PO BEDTIME PRN HPI Comments Details: This?a?68?yo female who is s/p laparoscopic revision gastric bypass 2 sleeve of retained pouch and hiatal hernia repair on?03/02/2024. Presents for 1 month post op visit. Weight today is 240.2 pounds, with a BMI of 40. There has been a 58.4 pound weight loss,(initial weight 298.6 pounds) since starting the program on 07/10/2023 reflecting a 19.5 % total body weight loss and a weight loss of 19.1 pounds since surgery (operative weight 259.3 pounds) reflecting a 7.3 % TBWL since surgery. No complaints of nausea, emesis, abdominal pain or reflux. Reports infrequent but normal bowel movements every 4-5 days and states the stool was soft but hard to move her bowels.. Present meal plan includes: celebrate 4 in 1, 2 scoops in 8 oz almond milk x 2 Premier protein 1 scoop in 8 oz almond milk quest bar 60-80 oz water/gatorade zero daily. ? Exercise routine includes: stationary bike 400 dorita daily [facility] Medical History Pre-op evaluation History of blood transfusion (~2013) Murmur Intestinal malabsorption Depression DJD (degenerative joint disease) Hyperlipidemia Anxiety Sleep apnea HTN (hypertension) Retinal detachment Surgical History Hx of detached retina repair (~2019) Hx of appendectomy Hx of gastric bypass Hx of dilation and curettage Hx of colonoscopy Hx of endoscopy History of delivery Hx of total knee replacement Hx of carpal tunnel repair Family History Mother CHF (congestive heart failure) A-fib Father No problems noted. Daughter No problems noted. Daughter No problems noted. Social History Household Members: Spouse Household Members Other:: 2-200# dogs-Great Danes Housing: House Are you a primary senior resident care director to a significant other at home: No Do you presently have visiting nurse or other home services: No 75 years or older and lives alone: No Alcohol intake: current Alcohol intake frequency: holidays/special occasions only Comment: aware of trip hazaed Patient Tobacco Use Status: Former Tobacco user Tobacco use type: Cigarette Years Smoked: quit 1988 service: No Physical Exam Vital Signs: Last Vital Signs Temp 97.2 F 04/01/24 11:59 Pulse 82 04/01/24 11:59 BP 111/74 04/01/24 11:59 Pulse Ox 97 04/01/24 11:59 Oxygen Delivery Method Room Air 04/01/24 11:59 BMI result Body Mass Index 40.0 Const General: healthy appearing and no acute distress Resp Effort & Inspection: normal respiratory effort Auscultation: clear to auscultation bilaterally Cardio Rate: regular rate Rhythm: regular rhythm GI Auscultation: normal bowel sounds Extrem General: Yes normal to inspection Assessment & Plan Assessment & Plan (1) S/P repair of paraesophageal hernia: Code(s): Z98.890 - Other specified postprocedural states; Z87.19 - Personal history of other diseases of the digestive system Category: Surgical Plan: Overall, patient is doing well. She is making progress. She is having some constipation and I suggested adding 1 cap of MiraLax to her Gatorade daily. She is exercising appropriately and is satisfied with her meal plan. We will continue current plans and have her return to the office in 1 month. Encouraged to continue to text weights weekly as well as if any questions or concerns.
[2024-04-01 11:59] VITALS: BP 111/74; PULSE 82; TEMP 36.2; O2SAT 97; BMI 40.0
== END 2024-04-01 12:35 | disposition home or self-care (01) ==
PROVIDERS: PCP Internal Medicine Cardiovascular Disease; Visit Provider Physician Assistant Surgical
DX: Z98.890 Other specified postprocedural states (principal); Z87.19 Personal history of other diseases of the digestive system
CPT/HCPCS: 99024

== ENCOUNTER → 2024-04-01 11:46 | Outpatient (BNVA) | payer OTHER, SELFPAY | PROVIDERS: PCP Internal Medicine Cardiovascular Disease; Visit Provider Physician Assistant Surgical ==

== ENCOUNTER 2024-05-03 15:21 | Outpatient (AMB) | payer OTHER, SELFPAY ==
[2024-05-03 09:22] VITALS: BMI 38.1
--- NOTE | 2024-05-03 09:22 | MHC.OFFVISWM ---
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 Presents for 2 month post op visit. Weight today is 229.4 pounds, with a BMI of 40. There has been a 69.2 pound weight loss,(initial weight 298.6 pounds) since starting the program on 07/10/2023 reflecting a 23.1 % total body weight loss and a weight loss of 29.9 pounds since surgery (operative weight 259.3 pounds) reflecting a 11.5 % TBWL since surgery. No complaints of nausea, emesis, abdominal pain or reflux. Reports infrequent but normal bowel movements every 2-5 days and states the stool was soft but hard to move her bowels. Present meal plan includes: celebrate 4 in 1, 2 scoops in 8 oz almond milk x 2 Premier protein 1 scoop in 8 oz almond milk quest bar 40-50 oz water/gatorade zero daily. ? Exercise routine includes: stationary bike [address] daily [facility] Medical History Pre-op evaluation History of blood transfusion (~2013) Murmur Intestinal malabsorption Depression DJD (degenerative joint disease) Hyperlipidemia Anxiety Sleep apnea HTN (hypertension) Retinal detachment Surgical History Hx of detached retina repair (~2019) Hx of appendectomy Hx of gastric bypass Hx of dilation and curettage Hx of colonoscopy Hx of endoscopy History of delivery Hx of total knee replacement Hx of carpal tunnel repair Family History Mother CHF (congestive heart failure) A-fib Father No problems noted. Daughter No problems noted. Daughter No problems noted. Social History Household Members: Spouse Household Members Other:: 2-200# dogs-Great Danes Housing: House Are you a primary children's zoo caretaker to a significant other at home: No Do you presently have visiting nurse or other home services: No 75 years or older and lives alone: No Alcohol intake: current Alcohol intake frequency: holidays/special occasions only Comment: aware of trip hazaed Patient Tobacco Use Status: Former Tobacco user Tobacco use type: Cigarette Years Smoked: quit 1988 service: No Telehealth Telehealth Telehealth Platform: Telephone Location of provider rendering services: practice address Location of patient: address on file Patient Identification confirmed using: Name, : Yes Telehealth method: voice only Patient verbally consented to treatment: Yes Patient verbally consented to billing insurance company: Yes Patient informed of any privacy concerns related to visit: Yes Minutes spent on Phone/Video with Pt.: 20 Assessment & Plan Assessment & Plan (1) S/P laparoscopic sleeve gastrectomy: Code(s): Z98.84 - Bariatric surgery status Category: Medical Plan: Change meal plans slightly: celebrate 4 in 1, 2 scoops in 8 oz almond milk x 2 Premier protein 1/2 scoop in 8 oz almond milk quest bar Additionally encouraged to continue exercises she is doing. Continue to text weekly and with any questions or concerns. Return to clinic 3 weeks.
== END 2024-05-03 15:38 | disposition home or self-care (01) ==
LOC: HO.HBS 15:21
PROVIDERS: PCP Internal Medicine Cardiovascular Disease; Visit Provider Physician Assistant Surgical
DX: Z98.84 Bariatric surgery status (principal)
CPT/HCPCS: 99024

== ENCOUNTER → 2024-05-03 15:21 | Outpatient (BNVA) | payer OTHER, SELFPAY | PROVIDERS: PCP Internal Medicine Cardiovascular Disease; Visit Provider Physician Assistant Surgical ==